=== PATIENT | male | born 1975 | race Caucasian/White ===

== ENCOUNTER 2019-10-14 14:10 | Inpatient (IN) | payer MEDICAID ==
[~2019-10-14] VITALS: Ht 185.4 cm; Wt 111.0 kg
[~2019-10-14 14:10] MED LIST: ATOR20TA PO; CLIN300C8 PO; LISI-167 PO; METF10002 PO; METF500T17 PO; OXYC-302 PO; TRAM-47 PO
--- NOTE | 2019-10-14 15:00 | NUR ---
REPORT FROM RICHARD SAMAYOA
[2019-10-14 15:29] LABS: BASOPHILS # (AUTO) 0.03 x10^3/uL (0-0.1); BASOPHILS % (AUTO) 0 % (0-1); EOSINOPHILS # (AUTO) 0.19 x10^3/uL (0-0.4); EOSINOPHILS % (AUTO) 3 % (1-7); LYMPHOCYTES # (AUTO) 1.48 x10^3/uL (1-3.4); LYMPHOCYTES % (AUTO) 21 % (22-44); MD NO; MEAN CORPUSCULAR HEMOGLOBIN 30.9 pg (27.5-34.5); MEAN CORPUSCULAR HGB CONC 33.2 g/dL (33.2-36.2); MEAN PLATELET VOLUME 11.4 fL (7.4-10.4); MONOCYTES % (AUTO) 6 % (2-9); NEUTROPHILS # (AUTO) 4.93 x10^3/uL (1.8-6.8); NEUTROPHILS % (AUTO) 70 % (42-75); PLATELET COUNT 133 x10^3/uL (130-400); RED BLOOD COUNT 5.38 x10^6/uL (4.38-5.82); RED CELL DISTRIBUTION WIDTH 13.4 % (9.4-14.8)
[2019-10-14] MEDS ORDERED: LABETALOL 5MG/ML, 20ML IVPush ONE (15:30)
[2019-10-14] MEDS ORDERED: LABETALOL 5MG/ML, 20ML ONE (15:30)
[2019-10-14 15:35] LABS: ANION GAP 6 mmol/L (5-15); CALCIUM 8.5 mg/dL (8.5-10.1); CHLORIDE 105 mmol/L (98-107); CREATININE 1.26 mg/dL (0.7-1.3)
[2019-10-14 15:47] LABS: INTERNATIONAL NORMALIZED RATIO 0.91 (0.93-1.1); PROTHROMBIN TIME 9.6 Seconds (9.6-11.5)
[2019-10-14 16:02] LABS: TROPONIN I < 0.015 ng/mL (0.000-0.045)
--- NOTE | 2019-10-14 16:19 | NUR ---
PT REPORT OF PAIN FROM HIS PANCREAS. MADE AWARE. NO ORDERS RECIEVED AT THIS TIME.
[2019-10-14 16:23] LABS: ALBUMIN 2.9 g/dL (3.4-5.0); BILIRUBIN, DIRECT 0.1 mg/dL (0.1-0.2)
[2019-10-14 16:25] LABS: BILIRUBIN,INDIRECT 0.4 mg/dL (0.0-2.0); BILIRUBIN,TOTAL 0.5 mg/dL (0.2-1.0); TOTAL PROTEIN 7.1 g/dL (6.4-8.2)
--- NOTE | 2019-10-14 16:45 | NUR ---
TASK RN, COVERING MEAL BREAK. PT SLEEPING, NAD. VSS/UPDATED IN COMPUTER. CALL LIGHT WITHIN REACH.
--- NOTE | 2019-10-14 16:58 | NUR ---
EKG COMPLETED, GIVEN TO DR PARKER
[2019-10-14] MEDS ORDERED: SODIUM CHLORIDE FLUSH 10ML SYR IVF PRN (18:00)
--- NOTE | 2019-10-14 18:47 | NUR ---
THROUGHPUT: PER HOSPITALIST, PT NEEDS TO BE ISO R/O CDIFF
[2019-10-14 19:49] VITALS: BP 157/82
[2019-10-14] MEDS ORDERED: ONDANSETRON 2MG/ML, 2ML IVPush PRN (20:00)
[2019-10-14] MEDS ORDERED: BISACODYL 10 MG SUPP PR PRN (20:00)
[2019-10-14] MEDS ORDERED: PLEASE ENTER HEIGHT AND WEIGHT MC SCH (20:00)
[2019-10-14] MEDS ORDERED: FAMO20TA7 PO (20:18)
[2019-10-14] MEDS ORDERED: METF500T17 PO (20:18)
[2019-10-14] MEDS ORDERED: ATOR-2 PO (20:18)
[2019-10-14] MEDS ORDERED: SPIR25TA5 PO (20:18)
[2019-10-14] MEDS ORDERED: CLON0.1T22 PO (20:18)
[2019-10-14] MEDS ORDERED: LISI-420 PO (20:18)
[2019-10-14] MEDS ORDERED: METO200T47 PO (20:18)
[2019-10-14] MEDS ORDERED: GABA-826 PO (20:18)
[2019-10-14] MEDS ORDERED: INSU100I13 SQ-INSULIN (20:18)
[2019-10-14] MEDS ORDERED: LISI10TA2 PO (20:18)
[2019-10-14] MEDS ORDERED: LIPA1CAP PO (20:18)
[2019-10-14 20:25] LABS: HEMOGLOBIN A1C 11.3 % (4.2-6.3)
[2019-10-14] MEDS ORDERED: INSULIN LISPRO 100 UNITS/ML, PEN SQ-INSULIN SCH (21:00)
[2019-10-14 21:31] VITALS: BP 168/95
[2019-10-14 22:51] LABS: CLOSTRIDIUM DIFFICILE ANTIGEN NEGATIVE; CLOSTRIDIUM DIFFICILE TOXIN NEGATIVE (Negative)
[2019-10-14] MEDS ORDERED: OMNIPAQUE 350 MG/ML, 100ML BOTTLE ONE (23:22)
[2019-10-15] MEDS: LISINOPRIL 20 MG TABLET PO SCH ×3 (00:30→20:36)
[2019-10-15] MEDS ORDERED: PANCRELIPASE 5000 CAPSULE.DR PO SCH (00:30)
[2019-10-15 00:54] VITALS: BP 180/105
[2019-10-15] MEDS ORDERED: IBUPROFEN 600 MG TABLET PO PRN (02:30)
[2019-10-15] MEDS ORDERED: hydrALAzine 20 MG/ML, 1ML IV PRN (02:30)
[2019-10-15 02:36] VITALS: BP 155/91
[2019-10-15] MEDS ORDERED: METOPROLOL SUCCINATE 100 MG TAB.ER.24H PO SCH (06:00)
[2019-10-15 06:19] LABS: CHOL/HDL RATIO 5.6; LDL/HDL RATIO 2.8 (0.5-3.0)
[2019-10-15] MEDS ORDERED: NICOTINE 7 MG/24 HR PATCH.TD24 ONE (08:29)
[2019-10-15] MEDS: INSULIN LISPRO 100 UNITS/ML, PEN SQ-INSULIN SCH ×4 (08:34→20:35)
[2019-10-15] MEDS: SPIRONOLACTONE 25 MG TABLET PO SCH (08:34)
[2019-10-15] MEDS: LACTOBACILLUS CHEW TABLET PO SCH ×3 (08:34→20:36)
[2019-10-15] MEDS: NICOTINE 7 MG/24 HR PATCH.TD24 TD SCH (08:34)
[2019-10-15] MEDS: PANCRELIPASE 5000 CAPSULE.DR PO SCH ×3 (08:34→20:36)
[2019-10-15] MEDS: FAMOTIDINE 20 MG TABLET PO SCH ×2 (08:35→20:36)
[2019-10-15] MEDS: LISINOPRIL 10 MG TABLET PO SCH (08:35)
[2019-10-15] MEDS: GABAPENTIN 100 MG CAPSULE PO SCH ×3 (08:35→20:36)
[2019-10-15] MEDS: ASPIRIN 81 MG TABLET CHEW PO/NG SCH (08:35)
[2019-10-15] MEDS: HEPARIN 5,000 UNITS/ML, 1ML SQ SCH ×2 (08:36→17:38)
[2019-10-15] MEDS: metFORMIN 500 MG TABLET PO SCH ×2 (08:38→20:36)
[2019-10-15 08:45] VITALS: BP 116/70
[2019-10-15] MEDS ORDERED: metFORMIN 500 MG TABLET PO SCH (09:00)
[2019-10-15] MEDS ORDERED: INSULIN LISPRO 100 UNITS/ML, PEN SQ-INSULIN SCH (11:00)
[2019-10-15] MEDS: INSULIN GLARGINE 100 UNITS/ML, PEN SQ-INSULIN SCH ×2 (12:01→20:36)
--- NOTE | 2019-10-15 13:52 | NUR ---
REC REGULAR/THIN LIQUIDS; ORANGE SHEET WITH DIET RECOMMENDATIONS AND SWALLOW STRATEGIES POSTED AT BEDSIDE. Addendum: 10/15/19 at 1352 by Jacque GONZALEZ Amended: Links added.
[2019-10-15 14:55] VITALS: BP 136/80
[2019-10-15 17:36] VITALS: BP 157/97
[2019-10-15] MEDS: CARVEDILOL 6.25 MG TABLET PO SCH (17:39)
[2019-10-15 18:56] VITALS: BP 135/73
[2019-10-15] MEDS ORDERED: ATORVASTATIN 80 MG TABLET PO SCH (21:00)
[2019-10-16 00:14] VITALS: BP 134/82
[2019-10-16] MEDS: HEPARIN 5,000 UNITS/ML, 1ML SQ SCH ×2 (01:18→08:36)
[2019-10-16] MEDS: CARVEDILOL 6.25 MG TABLET PO SCH (05:53)
[2019-10-16 06:50] VITALS: BP 126/74
[2019-10-16] MEDS: INSULIN LISPRO 100 UNITS/ML, PEN SQ-INSULIN SCH ×2 (08:24→11:26)
[2019-10-16] MEDS: NICOTINE 7 MG/24 HR PATCH.TD24 TD SCH (08:35)
[2019-10-16] MEDS: INSULIN GLARGINE 100 UNITS/ML, PEN SQ-INSULIN SCH (08:36)
[2019-10-16] MEDS: FAMOTIDINE 20 MG TABLET PO SCH (08:37)
[2019-10-16] MEDS: SPIRONOLACTONE 25 MG TABLET PO SCH (08:37)
[2019-10-16] MEDS: ASPIRIN 81 MG TABLET CHEW PO/NG SCH (08:37)
[2019-10-16] MEDS: LACTOBACILLUS CHEW TABLET PO SCH (08:37)
[2019-10-16] MEDS: LISINOPRIL 10 MG TABLET PO SCH (08:38)
[2019-10-16] MEDS: GABAPENTIN 100 MG CAPSULE PO SCH (08:38)
[2019-10-16] MEDS: metFORMIN 500 MG TABLET PO SCH (08:38)
[2019-10-16] MEDS: PANCRELIPASE 5000 CAPSULE.DR PO SCH (08:40)
[2019-10-16] MEDS ORDERED: ACID1TAB7 PO (11:13)
[2019-10-16] MEDS ORDERED: NICO-485 TD (11:13)
[2019-10-16] MEDS ORDERED: CARV6.2512 PO (11:13)
[2019-10-16] MEDS ORDERED: METF500T17 PO (11:13)
[2019-10-16] MEDS ORDERED: HYDR-3341 PO (11:13)
[2019-10-16] MEDS ORDERED: ASPI81TA45 PO (11:54)
[2019-10-16] MEDS ORDERED: FLU VACC QS2019-20 36MOS UP/PF 0.5 ML IM-VACC ONE (12:00)
== END 2019-10-16 12:33 | disposition home or self-care (01) | DRG 65 ==
LOC: ED 15:12 → EDIP 17:36 → 4WST 19:39 → DCLOUNGE 10-16 12:02
PROVIDERS: ADMIT Internal Medicine Infectious Disease; ATTEND Internal Medicine
DX: I63.9 Cerebral infarction, unspecified (principal); I69.351 Hemiplegia and hemiparesis following cerebral infarction affecting right dominant side; A08.4 Viral intestinal infection, unspecified; E11.65 Type 2 diabetes mellitus with hyperglycemia; E66.9 Obesity, unspecified; E78.5 Hyperlipidemia, unspecified; F17.210 Nicotine dependence, cigarettes, uncomplicated; G47.00 Insomnia, unspecified; G47.30 Sleep apnea, unspecified; G89.29 Other chronic pain; I10 Essential (primary) hypertension; I16.0 Hypertensive urgency; J32.0 Chronic maxillary sinusitis; Z81.1 Family history of alcohol abuse and dependence; Z81.3 Family history of other psychoactive substance abuse and dependence; Z83.3 Family history of diabetes mellitus; Z88.1 Allergy status to other antibiotic agents; Z88.5 Allergy status to narcotic agent; Z88.8 Allergy status to other drugs, medicaments and biological substances; Z68.32 Body mass index [BMI] 32.0-32.9, adult
CPT/HCPCS: 36415; 70450; 70496; 70498; 70551; 71045; 74230; 80048; 80061; 80076; 82040; 82962; 83036; 83690; 84484; 85025; 85610; 85730; 87324; 90686; 93005; 93306; 99285; G0378; J1644; Q9967; J1815

== ENCOUNTER 2019-11-12 20:27 | Inpatient (IN) | payer MEDICAID ==
[~2019-11-12] VITALS: Ht 185.4 cm; Wt 100.7 kg
[~2019-11-12 20:27] MED LIST changes: +ACID1TAB7 PO; +ASPI81TA45 PO; +ATOR-2 PO; +CARV6.2512 PO; +CLON0.1T22 PO; +FAMO20TA7 PO; +GABA-826 PO; +HYDR-3341 PO; +INSU100I13 SQ-INSULIN; +LIPA1CAP PO; +LISI-420 PO; +LISI10TA2 PO; +METO200T47 PO; +NICO-485 TD; +SPIR25TA5 PO
[2019-11-12] MEDS ORDERED: METF500T PO (21:04)
[2019-11-12] MEDS ORDERED: MORPHINE PO (21:06)
--- NOTE | 2019-11-12 21:06 | NUR ---
THIS IS A 44 YO MALE COMING IN FOR RIGHT SIDED WEAKNESS STARTING LAST NIGHT, ALONG WITH "I CAN'T SEE OUT OF MY RIGHT EYE BUT THAT WAS FROM A STROKE I HAD 5 WEEKS AGO. I ALSO HAVE SOME SHORTNESS OF BREATH, AND I'M DEHYDRATED". PATIENT STATES HE WAS TREATED AT [facility] FOR STROKE 5 WEEKS AGO. EQUAL STRENGTH BILATERALLY IN UE AND LE, DIMINISHED SENSATION ON RIGHT SIDE. RESIDUAL MILD FACIAL DROOP ON RIGHT SIDE, ABLE TO PUFF CHEEKS OUT EQUALLY, PERRLA, A&OX4. PT HAS HX OF HTN, CURRENTLY 214/137, TACHYCARDIC AT 113, OTHER VSS, ALL MONITORING IN PLACE, NAD NOTED, CALL LIGHT IN REACH. DENIES NEEDS AT THIS TIME.
[2019-11-12] MEDS ORDERED: LABETALOL 5MG/ML, 20ML ONE (21:40)
[2019-11-12] MEDS ORDERED: hydrALAzine 20 MG/ML, 1ML ONE (21:40)
[2019-11-12] MEDS ORDERED: MORPHINE SULFATE 4 MG/ML, 1ML ONE ×2 (21:40→22:51)
[2019-11-12 21:48] LABS: BASOPHILS # (AUTO) 0.03 x10^3/uL (0-0.1); BASOPHILS % (AUTO) 0 % (0-1); EOSINOPHILS # (AUTO) 0.08 x10^3/uL (0-0.4); EOSINOPHILS % (AUTO) 1 % (1-7); LYMPHOCYTES # (AUTO) 1.74 x10^3/uL (1-3.4); LYMPHOCYTES % (AUTO) 16 % (22-44); MD NO; MEAN CORPUSCULAR HEMOGLOBIN 30.5 pg (27.5-34.5); MEAN CORPUSCULAR HGB CONC 33.5 g/dL (33.2-36.2); MEAN CORPUSCULAR VOLUME 91.1 fL (81-97); MEAN PLATELET VOLUME 11.4 fL (7.4-10.4); MONOCYTES # (AUTO) 0.71 x10^3/uL (0.2-0.8); MONOCYTES % (AUTO) 7 % (2-9); NEUTROPHILS % (AUTO) 76 % (42-75); PLATELET COUNT 148 x10^3/uL (130-400); RED BLOOD COUNT 5.11 x10^6/uL (4.38-5.82)
[2019-11-12] MEDS: MORPHINE SULFATE 4 MG/ML, 1ML IVPush PRN ×2 (21:52→22:58)
[2019-11-12 21:57] LABS: ALBUMIN 3.1 g/dL (3.4-5.0); ANION GAP 8 mmol/L (5-15); CHLORIDE 102 mmol/L (98-107); CREATININE 1.66 mg/dL (0.7-1.3)
[2019-11-12] MEDS ORDERED: LABETALOL 5MG/ML, 20ML IVPush ONE (22:00)
[2019-11-12] MEDS ORDERED: SODIUM CHLORIDE FLUSH 10ML SYR IVF ONE (22:00)
[2019-11-12] MEDS ORDERED: hydrALAzine 20 MG/ML, 1ML IV ONE (22:00)
--- NOTE | 2019-11-12 22:00 | NUR ---
patient back from CT
[2019-11-12] MEDS ORDERED: ENALAPRILAT 1.25 MG/ML, 1ML ONE (22:51)
[2019-11-12] MEDS ORDERED: ENALAPRILAT 1.25 MG/ML, 2ML IV ONE (23:00)
--- NOTE | 2019-11-12 23:01 | NUR ---
PATIENT MNEDICATED PER EMAR, TOLERATED WELL, BP TRENDING DOWN. VSS, NAD, C/O BEING COLD AND RICHARD. NEEDS ADDRESSED. WAITING FOR ADMITTING MD TO ROOM.
[2019-11-13] MEDS ORDERED: DOCUSATE 100 MG CAPSULE PO PRN (00:30)
[2019-11-13] MEDS ORDERED: ONDANSETRON 2MG/ML, 2ML IVPush PRN (00:30)
[2019-11-13] MEDS ORDERED: LIDODERM 5% PATCH TD PRN (00:30)
[2019-11-13] MEDS ORDERED: hydrALAzine 20 MG/ML, 1ML IVPush PRN (00:30)
[2019-11-13] MEDS ORDERED: LABETALOL 5MG/ML, 20ML IVPush PRN (00:30)
[2019-11-13] MEDS ORDERED: MORPHINE 100 MG MC SCH (01:00)
[2019-11-13] MEDS: HEPARIN 5,000 UNITS/ML, 1ML SQ SCH ×3 (01:48→17:03)
[2019-11-13] MEDS: NICOTINE 7 MG/24 HR PATCH.TD24 TD SCH (01:48)
[2019-11-13] MEDS: LACTATED RINGERS 1,000 ML IV SCH ×3 (01:48→17:03)
[2019-11-13 02:58] VITALS: BP 129/81
[2019-11-13 06:47] VITALS: BP 138/77
[2019-11-13] MEDS ORDERED: CALCIUM GLUCONATE 4.6 MEQ in SODIUM CHLORIDE 0.9% 50 ML IV ONE (07:30)
[2019-11-13] MEDS: ASPIRIN 81 MG TABLET EC PO SCH (08:40)
[2019-11-13] MEDS: GABAPENTIN 100 MG CAPSULE PO SCH ×3 (08:41→21:47)
[2019-11-13] MEDS ORDERED: MORPHINE 100 MG PO SCH (09:00)
[2019-11-13] MEDS: INSULIN GLARGINE 100 UNITS/ML, PEN SQ-INSULIN SCH ×2 (09:00→21:48)
[2019-11-13] MEDS ORDERED: HYDROmorphone 1 MG/ML, 1ML INJ IM PRN (12:00)
[2019-11-13] MEDS: HYDROmorphone 1 MG/ML, 1ML INJ IV PRN ×3 (12:26→21:47)
[2019-11-13 12:28] VITALS: BP 169/99
[2019-11-13 21:27] VITALS: BP 169/93
[2019-11-13] MEDS: LISINOPRIL 20 MG TABLET PO SCH (21:47)
[2019-11-14] MEDS: HEPARIN 5,000 UNITS/ML, 1ML SQ SCH ×3 (00:40→17:55)
[2019-11-14] MEDS: NICOTINE 7 MG/24 HR PATCH.TD24 TD SCH (00:41)
[2019-11-14] MEDS: LACTATED RINGERS 1,000 ML IV SCH ×2 (00:41→08:59)
[2019-11-14] MEDS: HYDROmorphone 1 MG/ML, 1ML INJ IV PRN ×5 (02:16→20:09)
[2019-11-14 02:31] VITALS: BP 144/88
[2019-11-14 05:43] LABS: BASOPHILS # (AUTO) 0.04 x10^3/uL (0-0.1); BASOPHILS % (AUTO) 0 % (0-1); EOSINOPHILS # (AUTO) 0.17 x10^3/uL (0-0.4); EOSINOPHILS % (AUTO) 2 % (1-7); LYMPHOCYTES # (AUTO) 2.09 x10^3/uL (1-3.4); LYMPHOCYTES % (AUTO) 19 % (22-44); MD NO; MEAN CORPUSCULAR HEMOGLOBIN 30.6 pg (27.5-34.5); MEAN CORPUSCULAR HGB CONC 33.4 g/dL (33.2-36.2); MEAN CORPUSCULAR VOLUME 91.6 fL (81-97); MONOCYTES # (AUTO) 0.94 x10^3/uL (0.2-0.8); MONOCYTES % (AUTO) 9 % (2-9); NEUTROPHILS # (AUTO) 7.69 x10^3/uL (1.8-6.8); NEUTROPHILS % (AUTO) 70 % (42-75); PLATELET COUNT 146 x10^3/uL (130-400); RED BLOOD COUNT 4.52 x10^6/uL (4.38-5.82); RED CELL DISTRIBUTION WIDTH 14.3 % (9.4-14.8)
[2019-11-14 05:56] LABS: ANION GAP 7 mmol/L (5-15); CALCIUM 7.7 mg/dL (8.5-10.1); CHLORIDE 102 mmol/L (98-107)
[2019-11-14 05:59] LABS: CREATININE 1.19 mg/dL (0.7-1.3)
[2019-11-14 06:49] VITALS: BP 114/70
[2019-11-14] MEDS ORDERED: CALCIUM GLUCONATE 4.6 MEQ in SODIUM CHLORIDE 0.9% 50 ML IV ONE (08:00)
[2019-11-14] MEDS: GABAPENTIN 100 MG CAPSULE PO SCH ×3 (09:00→20:09)
[2019-11-14] MEDS: ASPIRIN 81 MG TABLET EC PO SCH (09:00)
[2019-11-14] MEDS: INSULIN GLARGINE 100 UNITS/ML, PEN SQ-INSULIN SCH ×2 (09:38→20:29)
[2019-11-14 12:32] VITALS: BP 106/67
[2019-11-14 17:35] LABS: CLOSTRIDIUM DIFFICILE ANTIGEN NEGATIVE; CLOSTRIDIUM DIFFICILE TOXIN NEGATIVE (Negative)
[2019-11-14] MEDS: LISINOPRIL 20 MG TABLET PO SCH (20:09)
[2019-11-14 20:23] VITALS: BP 161/96
[2019-11-14] MEDS: TRAZODONE 50MG TABLET PO PRN (22:58)
[2019-11-15] MEDS: HEPARIN 5,000 UNITS/ML, 1ML SQ SCH ×2 (00:06→09:13)
[2019-11-15] MEDS: HYDROmorphone 1 MG/ML, 1ML INJ IV PRN ×5 (00:06→16:52)
[2019-11-15] MEDS: NICOTINE 7 MG/24 HR PATCH.TD24 TD SCH (00:06)
[2019-11-15] MEDS: TRAZODONE 50MG TABLET PO PRN (00:15)
[2019-11-15] MEDS: LACTATED RINGERS 1,000 ML IV SCH ×2 (03:10→10:00)
[2019-11-15 03:23] VITALS: BP 156/96
[2019-11-15 06:07] LABS: CHLORIDE 103 mmol/L (98-107)
[2019-11-15 06:13] LABS: ALBUMIN 2.7 g/dL (3.4-5.0); ANION GAP 6 mmol/L (5-15); CALCIUM 8.1 mg/dL (8.5-10.1); CREATININE 1.19 mg/dL (0.7-1.3)
[2019-11-15 06:15] LABS: BASOPHILS # (AUTO) 0.03 x10^3/uL (0-0.1); BASOPHILS % (AUTO) 0 % (0-1); EOSINOPHILS # (AUTO) 0.13 x10^3/uL (0-0.4); EOSINOPHILS % (AUTO) 2 % (1-7); LYMPHOCYTES # (AUTO) 2.52 x10^3/uL (1-3.4); LYMPHOCYTES % (AUTO) 29 % (22-44); MD NO; MEAN CORPUSCULAR HEMOGLOBIN 30.3 pg (27.5-34.5); MEAN CORPUSCULAR HGB CONC 32.7 g/dL (33.2-36.2); MEAN CORPUSCULAR VOLUME 92.7 fL (81-97); MEAN PLATELET VOLUME 11.5 fL (7.4-10.4); MONOCYTES # (AUTO) 0.79 x10^3/uL (0.2-0.8); MONOCYTES % (AUTO) 9 % (2-9); NEUTROPHILS # (AUTO) 5.14 x10^3/uL (1.8-6.8); NEUTROPHILS % (AUTO) 60 % (42-75); PLATELET COUNT 150 x10^3/uL (130-400); RED BLOOD COUNT 4.65 x10^6/uL (4.38-5.82); RED CELL DISTRIBUTION WIDTH 14.4 % (9.4-14.8)
[2019-11-15 06:32] VITALS: BP 163/88
[2019-11-15] MEDS ORDERED: CALCIUM GLUCONATE 4.6 MEQ in SODIUM CHLORIDE 0.9% 50 ML IV ONE (07:30)
[2019-11-15] MEDS: ASPIRIN 81 MG TABLET EC PO SCH (09:14)
[2019-11-15] MEDS: INSULIN GLARGINE 100 UNITS/ML, PEN SQ-INSULIN SCH (09:14)
[2019-11-15] MEDS: GABAPENTIN 100 MG CAPSULE PO SCH ×2 (09:14→16:18)
[2019-11-15 13:02] VITALS: BP 164/85
[2019-11-15] MEDS ORDERED: CARV3.1212 PO (13:27)
[2019-11-15] MEDS ORDERED: CARVEDILOL 3.125 MG TABLET PO ONE (14:00)
== END 2019-11-15 16:58 | DRG 124 ==
LOC: ED 22:18 → EDIP 22:57 → 4EST 11-13 00:05
PROVIDERS: ADMIT Internal Medicine; ATTEND Family Medicine
DX: H43.13 Vitreous hemorrhage, bilateral (principal); N17.0 Acute kidney failure with tubular necrosis; I69.351 Hemiplegia and hemiparesis following cerebral infarction affecting right dominant side; I16.0 Hypertensive urgency; I10 Essential (primary) hypertension; G89.29 Other chronic pain; E78.5 Hyperlipidemia, unspecified; F17.200 Nicotine dependence, unspecified, uncomplicated; E11.65 Type 2 diabetes mellitus with hyperglycemia; Z83.3 Family history of diabetes mellitus; Z81.3 Family history of other psychoactive substance abuse and dependence; Z79.4 Long term (current) use of insulin; Z81.1 Family history of alcohol abuse and dependence; Z79.899 Other long term (current) drug therapy
CPT/HCPCS: 36415; 70450; 70551; 76770; 80048; 80069; 82040; 82962; 83735; 85025; 87324; 93005; 96374; 96375; 96376; G0378; J0610; J1170; J1644; J0360; J1815; J2270; J7120

== ENCOUNTER 2019-12-25 18:06 | Emergency (ER) | payer MEDICAID ==
[~2019-12-25] VITALS: Ht 185.4 cm; Wt 124.6 kg
[~2019-12-25 18:06] MED LIST changes: +CARV3.1212 PO; +METF500T PO; +MORPHINE PO
[2019-12-25] MEDS ORDERED: LABETALOL 5MG/ML, 20ML IVPush STA (18:55)
[2019-12-25] MEDS ORDERED: SODIUM CHLORIDE FLUSH 10ML SYR IVF ONE (19:00)
[2019-12-25 19:17] LABS: BASOPHILS # (AUTO) 0.05 x10^3/uL (0-0.1); BASOPHILS % (AUTO) 1 % (0-1); EOSINOPHILS # (AUTO) 0.41 x10^3/uL (0-0.4); EOSINOPHILS % (AUTO) 5 % (1-7); LYMPHOCYTES # (AUTO) 2.35 x10^3/uL (1-3.4); LYMPHOCYTES % (AUTO) 27 % (22-44); MD NO; MEAN CORPUSCULAR HEMOGLOBIN 30.8 pg (27.5-34.5); MEAN CORPUSCULAR HGB CONC 33.5 g/dL (33.2-36.2); MEAN CORPUSCULAR VOLUME 91.9 fL (81-97); MEAN PLATELET VOLUME 10.8 fL (7.4-10.4); MONOCYTES % (AUTO) 8 % (2-9); NEUTROPHILS # (AUTO) 5.37 x10^3/uL (1.8-6.8); NEUTROPHILS % (AUTO) 61 % (42-75); PLATELET COUNT 172 x10^3/uL (130-400); RED BLOOD COUNT 4.85 x10^6/uL (4.38-5.82); RED CELL DISTRIBUTION WIDTH 14.1 % (9.4-14.8)
[2019-12-25 19:24] LABS: ALANINE AMINOTRANSFERASE 25 U/L (12-78); ALBUMIN 3.4 g/dL (3.4-5.0); ANION GAP 7 mmol/L (5-15); CALCIUM 8.8 mg/dL (8.5-10.1); CHLORIDE 105 mmol/L (98-107); CREATININE 1.59 mg/dL (0.7-1.3)
[2019-12-25 19:29] LABS: ALKALINE PHOSPHATASE 86 U/L (45-117); BILIRUBIN,TOTAL 0.3 mg/dL (0.2-1.0); TOTAL PROTEIN 7.7 g/dL (6.4-8.2); TROPONIN I < 0.015 ng/mL (0.000-0.045)
[2019-12-25] MEDS ORDERED: LABETALOL 5MG/ML, 20ML ONE (21:11)
[2019-12-25] MEDS ORDERED: ONDANSETRON 2MG/ML, 2ML ONE (21:37)
[2019-12-25] MEDS ORDERED: KETOROLAC 30 MG/1 ML ONE (21:37)
[2019-12-25] MEDS ORDERED: ONDANSETRON 2MG/ML, 2ML IVPush ONE (22:00)
[2019-12-25] MEDS ORDERED: KETOROLAC 30 MG/1 ML IVPush ONE (22:00)
[2019-12-25 22:45] VITALS: BP 146/85
== END 2019-12-25 22:48 | disposition home or self-care (01) ==
LOC: ED 19:03
DX: R10.13 Epigastric pain (principal); I10 Essential (primary) hypertension; R51 Headache; E11.9 Type 2 diabetes mellitus without complications; Z86.73 Personal history of transient ischemic attack (TIA), and cerebral infarction without residual deficits; E78.5 Hyperlipidemia, unspecified; R00.0 Tachycardia, unspecified
CPT/HCPCS: 36415; 70450; 71045; 80053; 83690; 83880; 84484; 85025; 93005; 96374; 96375; 99285; J1885; J2405

== ENCOUNTER 2020-01-20 18:17 | Inpatient (IN) | payer MEDICAID ==
[~2020-01-20] VITALS: Ht 185.4 cm; Wt 123.9 kg
[~2020-01-20 18:17] MED LIST changes: +AMLO-150 PO; +AMLO5TAB10 PO; +ATOR40TA78 PO; +CARV25TA12 PO; +HYDR-3342 PO; +HYDR-3343 PO; +HYDR-826 PO; +LISI-170 PO; +ONDA4TAB7 PO; +PANT40TA5 PO; +TRAZ-175 PO
--- NOTE | 2020-01-20 18:42 | NUR ---
BIB [facility] ABD PAIN HX CVA W VISSUAL LOSS PANCREATITIS HTN DIABETIC TYPE 2 AO4 ON ARRIVAL
--- NOTE | 2020-01-20 19:02 | NUR ---
REPORT FROM DANITA COOK
[2020-01-20 19:13] LABS: BASOPHILS # (AUTO) 0.04 x10^3/uL (0-0.1); BASOPHILS % (AUTO) 0 % (0-1); EOSINOPHILS # (AUTO) 0.33 x10^3/uL (0-0.4); EOSINOPHILS % (AUTO) 3 % (1-7); LYMPHOCYTES # (AUTO) 2.85 x10^3/uL (1-3.4); LYMPHOCYTES % (AUTO) 28 % (22-44); MD NO; MEAN CORPUSCULAR HGB CONC 33.7 g/dL (33.2-36.2); MEAN PLATELET VOLUME 10.6 fL (7.4-10.4); MONOCYTES # (AUTO) 0.75 x10^3/uL (0.2-0.8); MONOCYTES % (AUTO) 7 % (2-9); NEUTROPHILS # (AUTO) 6.34 x10^3/uL (1.8-6.8); NEUTROPHILS % (AUTO) 62 % (42-75); PLATELET COUNT 226 x10^3/uL (130-400); RED CELL DISTRIBUTION WIDTH 13.4 % (9.4-14.8)
[2020-01-20 19:21] LABS: ALANINE AMINOTRANSFERASE 38 U/L (12-78); ALBUMIN 3.1 g/dL (3.4-5.0); ANION GAP 6 mmol/L (5-15); CALCIUM 8.2 mg/dL (8.5-10.1); CHLORIDE 104 mmol/L (98-107); CREATININE 1.54 mg/dL (0.7-1.3)
[2020-01-20 19:24] LABS: ALKALINE PHOSPHATASE 94 U/L (45-117); BILIRUBIN,TOTAL 0.2 mg/dL (0.2-1.0); TOTAL PROTEIN 7.4 g/dL (6.4-8.2)
[2020-01-20] MEDS ORDERED: SODIUM CHLORIDE 0.9% 1,000ML IVBOLUS ONE (19:30)
[2020-01-20] MEDS ORDERED: SODIUM CHLORIDE FLUSH 10ML SYR IVF ONE (19:30)
[2020-01-20] MEDS ORDERED: ONDANSETRON 2MG/ML, 2ML ONE (19:38)
[2020-01-20] MEDS ORDERED: ONDANSETRON 2MG/ML, 2ML IVPush ONE (20:00)
[2020-01-20] MEDS ORDERED: EMPA25TA PO (20:03)
[2020-01-20] MEDS ORDERED: PALI3TAB11 PO (20:03)
[2020-01-20] MEDS ORDERED: CLON0.1T22 PO (20:03)
[2020-01-20] MEDS ORDERED: LISINOPRIL PO (20:03)
[2020-01-20] MEDS ORDERED: HYDR-3342 PO (20:03)
[2020-01-20] MEDS ORDERED: SODIUM CHLORIDE 0.9% 1,000 ML IV ONE (20:12)
[2020-01-20] MEDS ORDERED: ACETAMINOPHEN 325 MG TABLET PO PRN (20:30)
[2020-01-20] MEDS ORDERED: MORPHINE SULFATE 4 MG/ML, 1ML ONE (20:30)
[2020-01-20] MEDS ORDERED: SODIUM CHLORIDE FLUSH 10ML SYR IVF PRN (20:30)
[2020-01-20] MEDS ORDERED: hydrALAzine 20 MG/ML, 1ML IVPush PRN (20:30)
[2020-01-20] MEDS: morphine SULFATE 10 MG/ML, 1ML IVPush PRN ×2 (20:31→23:40)
[2020-01-20] MEDS: LACTATED RINGERS 1,000 ML IV SCH (20:39)
--- NOTE | 2020-01-20 20:52 | NUR ---
REPORT TO DANITA SMITH
--- NOTE | 2020-01-20 20:53 | NUR ---
PT VERBALIZED PAIN RELIEF AFTER MORPHINE
[2020-01-20] MEDS ORDERED: INSULIN GLARGINE 100 UNITS/ML, PEN SQ-INSULIN SCH (21:00)
[2020-01-20 21:45] VITALS: BP 211/127
[2020-01-20] MEDS: HEPARIN 5,000 UNITS/ML, 1ML SQ SCH (21:54)
[2020-01-20] MEDS: TRAZODONE 100MG TABLET PO SCH (21:55)
[2020-01-20] MEDS: ATORVASTATIN 40 MG TABLET PO SCH (21:55)
[2020-01-20] MEDS: CARVEDILOL 25 MG TABLET PO SCH (21:55)
[2020-01-20] MEDS: GABAPENTIN 100 MG CAPSULE PO SCH (21:55)
[2020-01-20] MEDS: INSULIN LISPRO 100 UNITS/ML, PEN SQ-INSULIN SCH (22:21)
[2020-01-21] MEDS: morphine SULFATE 10 MG/ML, 1ML IVPush PRN ×7 (02:31→21:19)
[2020-01-21] MEDS: LACTATED RINGERS 1,000 ML IV SCH ×3 (03:49→18:18)
[2020-01-21 05:31] LABS: BASOPHILS # (AUTO) 0.05 x10^3/uL (0-0.1); BASOPHILS % (AUTO) 1 % (0-1); EOSINOPHILS # (AUTO) 0.28 x10^3/uL (0-0.4); EOSINOPHILS % (AUTO) 3 % (1-7); LYMPHOCYTES % (AUTO) 39 % (22-44); MD NO; MEAN CORPUSCULAR HEMOGLOBIN 30.8 pg (27.5-34.5); MEAN CORPUSCULAR HGB CONC 33.2 g/dL (33.2-36.2); MEAN CORPUSCULAR VOLUME 92.9 fL (81-97); MEAN PLATELET VOLUME 10.9 fL (7.4-10.4); MONOCYTES # (AUTO) 0.62 x10^3/uL (0.2-0.8); MONOCYTES % (AUTO) 7 % (2-9); NEUTROPHILS % (AUTO) 50 % (42-75); PLATELET COUNT 212 x10^3/uL (130-400); RED BLOOD COUNT 4.49 x10^6/uL (4.38-5.82); RED CELL DISTRIBUTION WIDTH 13.4 % (9.4-14.8)
[2020-01-21] MEDS: HEPARIN 5,000 UNITS/ML, 1ML SQ SCH ×3 (05:39→20:34)
[2020-01-21] MEDS: ONDANSETRON 2MG/ML, 2ML IVPush PRN ×2 (05:41→12:02)
[2020-01-21 05:43] LABS: CHLORIDE 112 mmol/L (98-107)
[2020-01-21 05:47] LABS: ANION GAP 5 mmol/L (5-15); CREATININE 1.37 mg/dL (0.7-1.3)
[2020-01-21] MEDS: INSULIN LISPRO 100 UNITS/ML, PEN SQ-INSULIN SCH ×4 (07:00→20:31)
[2020-01-21] MEDS: PALIPERIDONE 3 MG TAB.ER.24 PO SCH (07:40)
[2020-01-21] MEDS: GABAPENTIN 100 MG CAPSULE PO SCH ×3 (07:40→20:34)
[2020-01-21] MEDS: CARVEDILOL 25 MG TABLET PO SCH ×2 (07:40→20:34)
[2020-01-21] MEDS: ASPIRIN 81 MG TABLET EC PO SCH (07:41)
[2020-01-21] MEDS: AMLODIPINE 5 MG TABLET PO SCH (07:41)
[2020-01-21 07:53] VITALS: BP 169/106
[2020-01-21 08:24] LABS: CHOLESTEROL, TOTAL 142 mg/dL (140-239); VLDL CHOLESTEROL 19 mg/dL (0-25)
[2020-01-21 08:26] LABS: CHOL/HDL RATIO 3.2; HDL CHOL % 31 % (26-37); HDL CHOLESTEROL (DIRECT) 44 mg/dL (40-60); LDL CHOLESTEROL,CALCULATED 79 mg/dL (54-169); LDL/HDL RATIO 1.8 (0.5-3.0)
[2020-01-21 08:29] LABS: TRIGLYCERIDES 97 mg/dL (50-200)
[2020-01-21 12:46] VITALS: BP 149/95
[2020-01-21 18:11] VITALS: BP 163/91
[2020-01-21] MEDS: ATORVASTATIN 40 MG TABLET PO SCH (20:34)
[2020-01-21] MEDS: TRAZODONE 100MG TABLET PO SCH (20:34)
[2020-01-22] MEDS ORDERED: DEXTROSE 4 GM TAB.CHEW PO PRN
[2020-01-22] MEDS ORDERED: DEXTROSE 50%, 50ML SYRINGE IVPush PRN
[2020-01-22] MEDS ORDERED: GLUCAGON 1 MG IM PRN
[2020-01-22] MEDS: morphine SULFATE 10 MG/ML, 1ML IVPush PRN ×7 (00:28→21:26)
[2020-01-22] MEDS: LACTATED RINGERS 1,000 ML IV SCH ×2 (00:29→20:08)
[2020-01-22 00:40] VITALS: BP 156/91
[2020-01-22 03:36] LABS: ALBUMIN 2.8 g/dL (3.4-5.0); ANION GAP 4 mmol/L (5-15); CALCIUM 8.5 mg/dL (8.5-10.1); CHLORIDE 112 mmol/L (98-107)
[2020-01-22 03:40] LABS: ALANINE AMINOTRANSFERASE 31 U/L (12-78); ALKALINE PHOSPHATASE 88 U/L (45-117); BILIRUBIN,TOTAL 0.4 mg/dL (0.2-1.0); CREATININE 1.24 mg/dL (0.7-1.3); TOTAL PROTEIN 6.4 g/dL (6.4-8.2)
[2020-01-22] MEDS: HEPARIN 5,000 UNITS/ML, 1ML SQ SCH ×3 (04:54→20:07)
[2020-01-22] MEDS: INSULIN LISPRO 100 UNITS/ML, PEN SQ-INSULIN SCH ×4 (07:00→20:08)
[2020-01-22 07:33] VITALS: BP 145/95
[2020-01-22] MEDS ORDERED: D5%-0.45% NACL+KCL 10MEQ 1,000 ML IV SCH (08:00)
[2020-01-22] MEDS: SODIUM CHLORIDE FLUSH 10ML SYR IVF SCH ×2 (08:40→20:09)
[2020-01-22] MEDS: ASPIRIN 81 MG TABLET EC PO SCH (08:42)
[2020-01-22] MEDS: PALIPERIDONE 3 MG TAB.ER.24 PO SCH (08:43)
[2020-01-22] MEDS: LISINOPRIL 10 MG TABLET PO SCH (08:43)
[2020-01-22] MEDS: AMLODIPINE 5 MG TABLET PO SCH (08:43)
[2020-01-22] MEDS: GABAPENTIN 100 MG CAPSULE PO SCH ×3 (08:43→20:08)
[2020-01-22] MEDS: CARVEDILOL 25 MG TABLET PO SCH ×2 (08:48→20:08)
[2020-01-22] MEDS ORDERED: D5%-LACTATED RINGERS 1,000 ML IV SCH (11:30)
[2020-01-22 12:05] VITALS: BP 122/80
[2020-01-22] MEDS: ONDANSETRON 2MG/ML, 2ML IVPush PRN (14:59)
[2020-01-22] MEDS: ATORVASTATIN 40 MG TABLET PO SCH (20:08)
[2020-01-22] MEDS: TRAZODONE 100MG TABLET PO SCH (20:09)
[2020-01-22 20:44] VITALS: BP 138/83
[2020-01-23] MEDS: morphine SULFATE 10 MG/ML, 1ML IVPush PRN ×5 (00:29→22:02)
[2020-01-23 01:41] VITALS: BP 131/81
[2020-01-23] MEDS: HEPARIN 5,000 UNITS/ML, 1ML SQ SCH ×3 (03:48→19:57)
[2020-01-23 06:33] VITALS: BP 123/71
[2020-01-23] MEDS: AMLODIPINE 5 MG TABLET PO SCH (07:29)
[2020-01-23] MEDS: PALIPERIDONE 3 MG TAB.ER.24 PO SCH (07:29)
[2020-01-23] MEDS: LISINOPRIL 10 MG TABLET PO SCH (07:29)
[2020-01-23] MEDS: CARVEDILOL 25 MG TABLET PO SCH ×2 (07:29→19:56)
[2020-01-23] MEDS: ASPIRIN 81 MG TABLET EC PO SCH (07:29)
[2020-01-23] MEDS: GABAPENTIN 100 MG CAPSULE PO SCH ×3 (07:29→19:56)
[2020-01-23] MEDS: INSULIN LISPRO 100 UNITS/ML, PEN SQ-INSULIN SCH ×4 (07:37→19:57)
[2020-01-23] MEDS: SODIUM CHLORIDE FLUSH 10ML SYR IVF SCH ×2 (08:41→19:57)
[2020-01-23] MEDS: LACTATED RINGERS 1,000 ML IV SCH ×2 (09:34→22:41)
[2020-01-23] MEDS: NICOTINE 7 MG/24 HR PATCH.TD24 TD SCH (11:00)
[2020-01-23] MEDS: OXYcodone IR 5MG TABLET PO PRN ×2 (11:08→19:56)
[2020-01-23 14:56] VITALS: BP 122/76
[2020-01-23 19:28] VITALS: BP 139/83
[2020-01-23] MEDS: ATORVASTATIN 40 MG TABLET PO SCH (19:56)
[2020-01-23] MEDS: TRAZODONE 100MG TABLET PO SCH (19:56)
[2020-01-23] MEDS ORDERED: INSULIN GLARGINE 100 UNITS/ML, PEN SQ-INSULIN SCH (21:00)
[2020-01-24 01:03] VITALS: BP 160/93
[2020-01-24] MEDS: morphine SULFATE 10 MG/ML, 1ML IVPush PRN (02:07)
[2020-01-24] MEDS: OXYcodone IR 5MG TABLET PO PRN ×3 (04:45→21:00)
[2020-01-24] MEDS: HEPARIN 5,000 UNITS/ML, 1ML SQ SCH ×3 (04:45→20:56)
[2020-01-24] MEDS: INSULIN LISPRO 100 UNITS/ML, PEN SQ-INSULIN SCH ×4 (07:00→20:59)
[2020-01-24] MEDS: CARVEDILOL 25 MG TABLET PO SCH ×2 (07:11→20:57)
[2020-01-24] MEDS: AMLODIPINE 5 MG TABLET PO SCH (07:11)
[2020-01-24] MEDS: ASPIRIN 81 MG TABLET EC PO SCH (07:11)
[2020-01-24] MEDS: PALIPERIDONE 3 MG TAB.ER.24 PO SCH (07:11)
[2020-01-24] MEDS: LISINOPRIL 10 MG TABLET PO SCH ×2 (07:12→08:15)
[2020-01-24] MEDS: GABAPENTIN 100 MG CAPSULE PO SCH ×3 (07:13→20:57)
[2020-01-24] MEDS: SODIUM CHLORIDE FLUSH 10ML SYR IVF SCH ×2 (07:13→20:57)
[2020-01-24 08:17] VITALS: BP 160/76
[2020-01-24 08:51] VITALS: BP 144/71
[2020-01-24] MEDS ORDERED: IBUPROFEN 200 MG TABLET PO ONE (09:00)
[2020-01-24 09:47] LABS: ALANINE AMINOTRANSFERASE 21 U/L (12-78); ALBUMIN 2.6 g/dL (3.4-5.0); ANION GAP 7 mmol/L (5-15); CALCIUM 8.5 mg/dL (8.5-10.1); CHLORIDE 107 mmol/L (98-107)
[2020-01-24 09:50] LABS: ALKALINE PHOSPHATASE 87 U/L (45-117); BILIRUBIN,TOTAL 0.4 mg/dL (0.2-1.0); CREATININE 1.24 mg/dL (0.7-1.3); TOTAL PROTEIN 6.5 g/dL (6.4-8.2)
[2020-01-24 10:13] LABS: BASOPHILS # (AUTO) 0.07 x10^3/uL (0-0.1); BASOPHILS % (AUTO) 1 % (0-1); EOSINOPHILS % (AUTO) 1 % (1-7); LYMPHOCYTES # (AUTO) 1.86 x10^3/uL (1-3.4); LYMPHOCYTES % (AUTO) 14 % (22-44); MD SCAN; MEAN CORPUSCULAR HEMOGLOBIN 31.1 pg (27.5-34.5); MEAN CORPUSCULAR HGB CONC 33.7 g/dL (33.2-36.2); MEAN CORPUSCULAR VOLUME 92.2 fL (81-97); MEAN PLATELET VOLUME 10.4 fL (7.4-10.4); MONOCYTES # (AUTO) 1.15 x10^3/uL (0.2-0.8); MONOCYTES % (AUTO) 9 % (2-9); NEUTROPHILS # (AUTO) 9.69 x10^3/uL (1.8-6.8); NEUTROPHILS % (AUTO) 75 % (42-75); PLATELET COUNT 169 x10^3/uL (130-400); RED BLOOD COUNT 4.51 x10^6/uL (4.38-5.82); RED CELL DISTRIBUTION WIDTH 13.1 % (9.4-14.8)
[2020-01-24] MEDS: NICOTINE 7 MG/24 HR PATCH.TD24 TD SCH (11:24)
[2020-01-24] MEDS ORDERED: OXYcodone 5 MG/5 ML ORAL.SOL UDC ONE (12:18)
[2020-01-24] MEDS ORDERED: POLYETHYLENE GLYCOL 17 GM PACKET NG PRN (14:30)
[2020-01-24] MEDS ORDERED: SENNA/DOCUSATE TABLET PO PRN (14:30)
[2020-01-24 16:22] VITALS: BP 131/76
[2020-01-24 16:44] LABS: MICROSCOPIC INDICATED
[2020-01-24 17:00] LABS: CULTURE INDICATED? NO
[2020-01-24] MEDS ORDERED: TRAZODONE 50MG TABLET ONE (20:13)
[2020-01-24 20:30] VITALS: BP 184/86
[2020-01-24] MEDS: ATORVASTATIN 40 MG TABLET PO SCH (20:57)
[2020-01-24] MEDS: TRAZODONE 100MG TABLET PO SCH (20:58)
[2020-01-24] MEDS: INSULIN GLARGINE 100 UNITS/ML, PEN SQ-INSULIN SCH (21:00)
[2020-01-25 03:00] VITALS: BP 150/88
[2020-01-25] MEDS: OXYcodone IR 5MG TABLET PO PRN ×3 (04:41→21:29)
[2020-01-25] MEDS: HEPARIN 5,000 UNITS/ML, 1ML SQ SCH ×3 (04:41→21:29)
[2020-01-25 05:27] LABS: MEAN CORPUSCULAR HEMOGLOBIN 30.9 pg (27.5-34.5); MEAN CORPUSCULAR HGB CONC 33.7 g/dL (33.2-36.2); MEAN CORPUSCULAR VOLUME 91.8 fL (81-97); MEAN PLATELET VOLUME 11.2 fL (7.4-10.4); PLATELET COUNT 144 x10^3/uL (130-400); RED BLOOD COUNT 4.62 x10^6/uL (4.38-5.82); RED CELL DISTRIBUTION WIDTH 13.3 % (9.4-14.8)
[2020-01-25 05:28] LABS: ALBUMIN 2.5 g/dL (3.4-5.0); ANION GAP 8 mmol/L (5-15); CALCIUM 8.8 mg/dL (8.5-10.1); CHLORIDE 104 mmol/L (98-107)
[2020-01-25 05:31] LABS: ALANINE AMINOTRANSFERASE 20 U/L (12-78); ALKALINE PHOSPHATASE 88 U/L (45-117); BILIRUBIN,TOTAL 0.4 mg/dL (0.2-1.0); CREATININE 1.22 mg/dL (0.7-1.3); TOTAL PROTEIN 6.8 g/dL (6.4-8.2)
[2020-01-25 05:50] LABS: BASOPHILS # (AUTO) 0.03 x10^3/uL (0-0.1); BASOPHILS % (AUTO) 0 % (0-1); EOSINOPHILS # (AUTO) 0.05 x10^3/uL (0-0.4); EOSINOPHILS % (AUTO) 0 % (1-7); LYMPHOCYTES # (AUTO) 1.74 x10^3/uL (1-3.4); LYMPHOCYTES % (AUTO) 10 % (22-44); MD SCAN; MONOCYTES # (AUTO) 1.33 x10^3/uL (0.2-0.8); MONOCYTES % (AUTO) 8 % (2-9); NEUTROPHILS # (AUTO) 13.65 x10^3/uL (1.8-6.8); NEUTROPHILS % (AUTO) 81 % (42-75)
[2020-01-25 06:30] VITALS: BP 156/87
[2020-01-25] MEDS: GABAPENTIN 100 MG CAPSULE PO SCH ×3 (08:53→21:31)
[2020-01-25] MEDS: ASPIRIN 81 MG TABLET EC PO SCH (08:53)
[2020-01-25] MEDS: LISINOPRIL 10 MG TABLET PO SCH ×3 (08:53→09:36)
[2020-01-25] MEDS: AMLODIPINE 5 MG TABLET PO SCH (08:53)
[2020-01-25] MEDS: CARVEDILOL 25 MG TABLET PO SCH ×2 (08:54→21:30)
[2020-01-25] MEDS: SODIUM CHLORIDE FLUSH 10ML SYR IVF SCH ×2 (08:54→21:35)
[2020-01-25] MEDS: INSULIN LISPRO 100 UNITS/ML, PEN SQ-INSULIN SCH ×4 (08:54→21:34)
[2020-01-25] MEDS: PALIPERIDONE 3 MG TAB.ER.24 PO SCH (09:36)
[2020-01-25] MEDS: NICOTINE 7 MG/24 HR PATCH.TD24 TD SCH (11:58)
[2020-01-25 14:59] VITALS: BP 123/54
[2020-01-25 16:07] VITALS: BP 137/76
[2020-01-25 20:19] VITALS: BP 148/78
[2020-01-25] MEDS ORDERED: LISINOPRIL 10 MG TABLET ONE (21:13)
[2020-01-25] MEDS: ATORVASTATIN 40 MG TABLET PO SCH (21:29)
[2020-01-25] MEDS: ONDANSETRON 2MG/ML, 2ML IVPush PRN (21:29)
[2020-01-25] MEDS: LISINOPRIL 20 MG TABLET PO SCH (21:31)
[2020-01-25] MEDS: INSULIN GLARGINE 100 UNITS/ML, PEN SQ-INSULIN SCH (21:35)
[2020-01-25] MEDS ORDERED: TRAZODONE 50MG TABLET ONE (21:36)
[2020-01-25] MEDS: TRAZODONE 100MG TABLET PO SCH (21:37)
[2020-01-26 02:00] VITALS: BP 105/74
[2020-01-26] MEDS: HEPARIN 5,000 UNITS/ML, 1ML SQ SCH ×3 (05:28→20:34)
[2020-01-26 06:14] LABS: MEAN CORPUSCULAR HEMOGLOBIN 31.2 pg (27.5-34.5); MEAN CORPUSCULAR HGB CONC 33.5 g/dL (33.2-36.2); MEAN PLATELET VOLUME 10.9 fL (7.4-10.4); PLATELET COUNT 142 x10^3/uL (130-400); RED BLOOD COUNT 4.32 x10^6/uL (4.38-5.82); RED CELL DISTRIBUTION WIDTH 13.3 % (9.4-14.8)
[2020-01-26 06:22] LABS: ALBUMIN 2.3 g/dL (3.4-5.0); ANION GAP 7 mmol/L (5-15); CALCIUM 8.1 mg/dL (8.5-10.1); CHLORIDE 104 mmol/L (98-107)
[2020-01-26 06:25] LABS: ALANINE AMINOTRANSFERASE 16 U/L (12-78); ALKALINE PHOSPHATASE 82 U/L (45-117); BILIRUBIN,TOTAL 0.4 mg/dL (0.2-1.0); CREATININE 1.43 mg/dL (0.7-1.3); TOTAL PROTEIN 6.2 g/dL (6.4-8.2)
[2020-01-26 06:40] LABS: BASOPHILS # (AUTO) 0.04 x10^3/uL (0-0.1); BASOPHILS % (AUTO) 0 % (0-1); EOSINOPHILS # (AUTO) 0.27 x10^3/uL (0-0.4); EOSINOPHILS % (AUTO) 2 % (1-7); LYMPHOCYTES # (AUTO) 2.74 x10^3/uL (1-3.4); LYMPHOCYTES % (AUTO) 19 % (22-44); MD SCAN; MONOCYTES # (AUTO) 1.87 x10^3/uL (0.2-0.8); MONOCYTES % (AUTO) 13 % (2-9); NEUTROPHILS # (AUTO) 9.89 x10^3/uL (1.8-6.8); NEUTROPHILS % (AUTO) 67 % (42-75)
[2020-01-26] MEDS: INSULIN LISPRO 100 UNITS/ML, PEN SQ-INSULIN SCH ×4 (07:00→20:30)
[2020-01-26] MEDS ORDERED: LISINOPRIL 10 MG TABLET ONE (07:37)
[2020-01-26 07:48] VITALS: BP 121/66
[2020-01-26] MEDS: SODIUM CHLORIDE FLUSH 10ML SYR IVF SCH ×2 (07:50→20:33)
[2020-01-26] MEDS: AMLODIPINE 5 MG TABLET PO SCH (07:51)
[2020-01-26] MEDS: PALIPERIDONE 3 MG TAB.ER.24 PO SCH (07:52)
[2020-01-26] MEDS: GABAPENTIN 100 MG CAPSULE PO SCH ×3 (07:52→20:29)
[2020-01-26] MEDS: LISINOPRIL 20 MG TABLET PO SCH ×2 (07:52→20:29)
[2020-01-26] MEDS: CARVEDILOL 25 MG TABLET PO SCH ×2 (07:52→20:29)
[2020-01-26] MEDS: ASPIRIN 81 MG TABLET EC PO SCH (07:52)
[2020-01-26] MEDS: OXYcodone IR 5MG TABLET PO PRN ×3 (07:55→23:09)
[2020-01-26] MEDS: NICOTINE 7 MG/24 HR PATCH.TD24 TD SCH (10:59)
[2020-01-26] MEDS ORDERED: OMNIPAQUE 350 MG/ML, 100ML BOTTLE ONE (11:35)
[2020-01-26 14:40] VITALS: BP 130/69
[2020-01-26 18:43] VITALS: BP 152/79
[2020-01-26 20:27] VITALS: BP 162/84
[2020-01-26] MEDS: ATORVASTATIN 40 MG TABLET PO SCH (20:29)
[2020-01-26] MEDS: TRAZODONE 100MG TABLET PO SCH (20:29)
[2020-01-26] MEDS: INSULIN GLARGINE 100 UNITS/ML, PEN SQ-INSULIN SCH (20:31)
[2020-01-27 01:19] VITALS: BP 116/58
[2020-01-27] MEDS: HEPARIN 5,000 UNITS/ML, 1ML SQ SCH ×3 (05:18→20:57)
[2020-01-27 06:47] VITALS: BP 136/68
[2020-01-27] MEDS: CEFTRIAXONE PMX 1GM/50ML 50 ML IV SCH (08:02)
[2020-01-27 08:21] LABS: MEAN CORPUSCULAR HEMOGLOBIN 30.9 pg (27.5-34.5); MEAN CORPUSCULAR HGB CONC 33.3 g/dL (33.2-36.2); MEAN CORPUSCULAR VOLUME 92.7 fL (81-97); MEAN PLATELET VOLUME 10.2 fL (7.4-10.4); PLATELET COUNT 158 x10^3/uL (130-400); RED BLOOD COUNT 4.39 x10^6/uL (4.38-5.82); RED CELL DISTRIBUTION WIDTH 13.3 % (9.4-14.8)
[2020-01-27] MEDS: ASPIRIN 81 MG TABLET EC PO SCH (08:25)
[2020-01-27] MEDS: PALIPERIDONE 3 MG TAB.ER.24 PO SCH (08:25)
[2020-01-27] MEDS: INSULIN LISPRO 100 UNITS/ML, PEN SQ-INSULIN SCH ×4 (08:25→20:59)
[2020-01-27] MEDS: GABAPENTIN 100 MG CAPSULE PO SCH ×3 (08:26→20:56)
[2020-01-27] MEDS: LISINOPRIL 20 MG TABLET PO SCH ×2 (08:26→20:56)
[2020-01-27] MEDS: OXYcodone IR 5MG TABLET PO PRN (08:26)
[2020-01-27] MEDS: CARVEDILOL 25 MG TABLET PO SCH ×2 (08:26→20:56)
[2020-01-27] MEDS: AMLODIPINE 5 MG TABLET PO SCH (08:26)
[2020-01-27 08:28] LABS: ANION GAP 5 mmol/L (5-15); CALCIUM 8.4 mg/dL (8.5-10.1); CHLORIDE 105 mmol/L (98-107); CREATININE 1.32 mg/dL (0.7-1.3)
[2020-01-27 08:40] LABS: BASOPHILS # (AUTO) 0.04 x10^3/uL (0-0.1); BASOPHILS % (AUTO) 0 % (0-1); EOSINOPHILS # (AUTO) 0.34 x10^3/uL (0-0.4); EOSINOPHILS % (AUTO) 3 % (1-7); LYMPHOCYTES # (AUTO) 2.54 x10^3/uL (1-3.4); LYMPHOCYTES % (AUTO) 21 % (22-44); MD SCAN; MONOCYTES # (AUTO) 1.68 x10^3/uL (0.2-0.8); MONOCYTES % (AUTO) 14 % (2-9); NEUTROPHILS # (AUTO) 7.43 x10^3/uL (1.8-6.8); NEUTROPHILS % (AUTO) 62 % (42-75)
[2020-01-27] MEDS: DOXYCYCLINE 100 MG in DEXTROSE 5% 250 ML IV SCH ×2 (08:43→20:49)
[2020-01-27] MEDS: SODIUM CHLORIDE FLUSH 10ML SYR IVF SCH ×2 (08:45→21:00)
[2020-01-27] MEDS: NICOTINE 7 MG/24 HR PATCH.TD24 TD SCH (11:20)
[2020-01-27 12:13] VITALS: BP 119/68
[2020-01-27] MEDS ORDERED: OXYcodone IR 5MG TABLET PO PRN ×2 (14:00→23:00)
[2020-01-27] MEDS ORDERED: IBUPROFEN 800 MG TABLET PO PRN (14:00)
[2020-01-27] MEDS: POLYETHYLENE GLYCOL 17 GM PACKET NG SCH (14:40)
[2020-01-27] MEDS: SENNA/DOCUSATE TABLET PO SCH ×2 (14:40→20:57)
[2020-01-27 18:15] VITALS: BP 132/51
[2020-01-27 20:55] VITALS: BP 156/76
[2020-01-27] MEDS: TRAZODONE 100MG TABLET PO SCH (20:56)
[2020-01-27] MEDS: ATORVASTATIN 40 MG TABLET PO SCH (20:56)
[2020-01-27] MEDS ORDERED: INSULIN GLARGINE 100 UNITS/ML, PEN SQ-INSULIN SCH (21:00)
[2020-01-28 00:42] VITALS: BP 147/75
[2020-01-28] MEDS: HEPARIN 5,000 UNITS/ML, 1ML SQ SCH ×2 (05:01→13:30)
[2020-01-28] MEDS: INSULIN LISPRO 100 UNIT/ML, 3ML VIAL SQ-INSULIN SCH ×2 (07:00→11:00)
[2020-01-28] MEDS: CEFTRIAXONE PMX 1GM/50ML 50 ML IV SCH (07:31)
[2020-01-28 07:50] VITALS: BP 159/91
[2020-01-28] MEDS: INSULIN LISPRO 100 UNITS/ML, PEN SQ-INSULIN SCH ×2 (08:11→12:36)
[2020-01-28] MEDS ORDERED: BISACODYL 10 MG SUPP PR PRN (08:30)
[2020-01-28] MEDS: SENNA/DOCUSATE TABLET PO SCH (08:52)
[2020-01-28] MEDS: DOXYCYCLINE 100 MG in DEXTROSE 5% 250 ML IV SCH (08:52)
[2020-01-28] MEDS: POLYETHYLENE GLYCOL 17 GM PACKET NG SCH (08:52)
[2020-01-28] MEDS: AMLODIPINE 5 MG TABLET PO SCH (08:52)
[2020-01-28] MEDS: CARVEDILOL 25 MG TABLET PO SCH (08:52)
[2020-01-28] MEDS: SODIUM CHLORIDE FLUSH 10ML SYR IVF SCH (08:53)
[2020-01-28] MEDS: ASPIRIN 81 MG TABLET EC PO SCH (08:53)
[2020-01-28] MEDS: PALIPERIDONE 3 MG TAB.ER.24 PO SCH (08:53)
[2020-01-28] MEDS: GABAPENTIN 100 MG CAPSULE PO SCH (08:53)
[2020-01-28] MEDS: LISINOPRIL 20 MG TABLET PO SCH (08:53)
[2020-01-28] MEDS: NICOTINE 7 MG/24 HR PATCH.TD24 TD SCH (11:00)
[2020-01-28] MEDS ORDERED: HYDR-3343 PO (11:16)
[2020-01-28] MEDS ORDERED: LISI-170 PO (11:16)
[2020-01-28] MEDS ORDERED: INSU100I13 SQ-INSULIN (11:16)
[2020-01-28] MEDS ORDERED: ALBU6.7H8 PO (11:33)
[2020-01-28] MEDS ORDERED: DOXY100C2 PO (11:33)
[2020-01-28] MEDS ORDERED: CEFD300C37 PO (11:33)
[2020-01-28 14:03] VITALS: BP 153/88
== END 2020-01-28 15:35 | disposition home or self-care (01) | DRG 438 ==
LOC: ED 19:46 → EDIP 20:12 → 3N 21:31 → 3WST 01-24 12:22 → 3N 01-26 10:39
PROVIDERS: ADMIT Internal Medicine; ATTEND Internal Medicine
DX: K85.30 Drug induced acute pancreatitis without necrosis or infection (principal); J18.9 Pneumonia, unspecified organism; N17.0 Acute kidney failure with tubular necrosis; I69.351 Hemiplegia and hemiparesis following cerebral infarction affecting right dominant side; E11.65 Type 2 diabetes mellitus with hyperglycemia; K86.1 Other chronic pancreatitis; E66.9 Obesity, unspecified; E78.5 Hyperlipidemia, unspecified; F17.200 Nicotine dependence, unspecified, uncomplicated; H54.40 Blindness, one eye, unspecified eye; K59.03 Drug induced constipation; Z79.4 Long term (current) use of insulin; Z82.49 Family history of ischemic heart disease and other diseases of the circulatory system; Z83.3 Family history of diabetes mellitus; Z82.3 Family history of stroke; Z81.1 Family history of alcohol abuse and dependence; Z88.1 Allergy status to other antibiotic agents; Z88.6 Allergy status to analgesic agent; Z88.5 Allergy status to narcotic agent; Z83.6 Family history of other diseases of the respiratory system; G89.29 Other chronic pain; R10.9 Unspecified abdominal pain; Z71.3 Dietary counseling and surveillance; Z68.36 Body mass index [BMI] 36.0-36.9, adult; I16.0 Hypertensive urgency; T40.2X5A Adverse effect of other opioids, initial encounter; Y95 Nosocomial condition
CPT/HCPCS: 36415; 96361; 96374; 99285; J7121; 71045; 71260; 74177; 76700; 80048; 80053; 80061; 80307; 81001; 82962; 83036; 83690; 85025; G0378; J0696; J1644; J2405; J7060; Q9967; J1815; J2270; J7030; J7120; Q0177

== ENCOUNTER 2020-01-29 13:17 | Observation (INO) | payer MEDICAID ==
[~2020-01-29] VITALS: Ht 185.4 cm; Wt 115.3 kg
[~2020-01-29 13:17] MED LIST changes: +ALBU6.7H8 PO; +CEFD300C37 PO; +DOXY100C2 PO; +EMPA25TA PO; +LISINOPRIL PO; +PALI3TAB11 PO
--- NOTE | 2020-01-29 13:29 | NUR ---
TASK RN NOTE: biba with c/o headache and vision lost to left eye, noted symptoms on awakening this am at 0200. 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
[2020-01-29 14:00] LABS: BASOPHILS # (AUTO) 0.04 x10^3/uL (0-0.1); BASOPHILS % (AUTO) 0 % (0-1); EOSINOPHILS # (AUTO) 0.16 x10^3/uL (0-0.4); EOSINOPHILS % (AUTO) 1 % (1-7); LYMPHOCYTES # (AUTO) 1.75 x10^3/uL (1-3.4); LYMPHOCYTES % (AUTO) 15 % (22-44); MD NO; MEAN CORPUSCULAR HEMOGLOBIN 30.5 pg (27.5-34.5); MEAN CORPUSCULAR HGB CONC 33.5 g/dL (33.2-36.2); MEAN CORPUSCULAR VOLUME 91.1 fL (81-97); MEAN PLATELET VOLUME 11.1 fL (7.4-10.4); MONOCYTES # (AUTO) 1.06 x10^3/uL (0.2-0.8); MONOCYTES % (AUTO) 9 % (2-9); NEUTROPHILS # (AUTO) 8.36 x10^3/uL (1.8-6.8); NEUTROPHILS % (AUTO) 74 % (42-75); PLATELET COUNT 193 x10^3/uL (130-400); RED BLOOD COUNT 4.87 x10^6/uL (4.38-5.82); RED CELL DISTRIBUTION WIDTH 13.1 % (9.4-14.8)
--- NOTE | 2020-01-29 14:00 | NUR ---
pt back from CT with [employer]-telecom specialist Erin.
[2020-01-29 14:03] LABS: INTERNATIONAL NORMALIZED RATIO 0.96 (0.93-1.1); PROTHROMBIN TIME 10.2 Seconds (9.6-11.5)
[2020-01-29] MEDS ORDERED: OMNIPAQUE 350 MG/ML, 100ML BOTTLE ONE (14:21)
[2020-01-29] MEDS ORDERED: SODIUM POLY SULFONATE UDC 15 GM/60 ML PO ONE (14:30)
[2020-01-29] MEDS ORDERED: CALCIUM CHLORIDE 10%, 10ML SYR IVPush ONE (14:30)
--- NOTE | 2020-01-29 14:47 | NUR ---
full assessment performed by this RN, pt is a&o, resps even and unlabored, nsr on lead application architect. pt notes diminished sensation to left face, arm and leg, left arm and leg slightly weaker than right upon this RN's assessment. pupils equal, round and reactive, face symmetrical, no drift noted. pt states he cannot discern when diminished sensation began, states he only noticed left sided weakness this am "between 8am and 9am". LOLA Ramírez notified. LOLA Ramírez spoke with contribution solicitor neurologist Tim. Per MD Ramírez, pt is not a candidate for TPA. Report given to DANITA Napier who is assuming care at this time.
--- NOTE | 2020-01-29 14:48 | NUR ---
BEDSIDE REPORT FROM CLARA SAMAYOA, PT RESTING IN [facility], AWAITING BED ASSIGNMENT. CALL LIGHT WITHIN REACH.
[2020-01-29] MEDS ORDERED: SODIUM POLY SULFONATE UDC 15 GM/60 ML ONE (14:58)
--- NOTE | 2020-01-29 14:58 | NUR ---
PER DR SHANKAR ONLY GIVE KAYEXELATE AT THIS TIME
[2020-01-29] MEDS ORDERED: POLYETHYLENE GLYCOL 17 GM PACKET PO PRN (15:30)
[2020-01-29] MEDS ORDERED: GLUCAGON 1 MG IM PRN (15:30)
[2020-01-29] MEDS ORDERED: DEXTROSE 50%, 50ML SYRINGE IVPush PRN (15:30)
[2020-01-29] MEDS ORDERED: DEXTROSE 4 GM TAB.CHEW PO PRN (15:30)
[2020-01-29] MEDS ORDERED: hydrALAzine 20 MG/ML, 1ML IV PRN (15:30)
[2020-01-29] MEDS ORDERED: LORazepam 2 MG/ML, 1ML IVPush ONE (15:30)
[2020-01-29] MEDS ORDERED: ONDANSETRON ODT 4 MG PO PRN (15:30)
[2020-01-29] MEDS: INSULIN LISPRO 100 UNITS/ML, PEN SQ-INSULIN SCH ×2 (16:00→20:55)
[2020-01-29] MEDS: GABAPENTIN 100 MG CAPSULE PO SCH ×2 (16:00→20:53)
--- NOTE | 2020-01-29 16:15 | NUR ---
PT GIVEN BEDSIDE COMMODE. CALL LIGHT WITHIN REACH. AWAITING BED ASSIGNMENT
--- NOTE | 2020-01-29 16:32 | NUR ---
PT UP TO COMMODE AND HAD 1 LARGE STOOL
--- NOTE | 2020-01-29 16:52 | NUR ---
REPORT TO BENIGNO RN
--- NOTE | 2020-01-29 17:01 | NUR ---
TASK RN: PT TRANSFERRED TO FLOOR. PT LEFT WITH ALL PERSONAL BELONGINGS.
[2020-01-29 17:28] VITALS: BP 188/102
[2020-01-29] MEDS ORDERED: GADOTERATE 10 MMOL/20 ML SYR ONE (18:46)
[2020-01-29] MEDS: MORPHINE SULFATE 4 MG/ML, 1ML IVPush PRN ×2 (19:15→22:51)
[2020-01-29] MEDS: SODIUM CHLORIDE 0.9% 1,000 ML IV SCH (19:15)
[2020-01-29 19:42] VITALS: BP 148/100
[2020-01-29] MEDS: DOXYCYCLINE 100MG CAP PO SCH (20:52)
[2020-01-29] MEDS: NICOTINE 7 MG/24 HR PATCH.TD24 TD SCH (20:52)
[2020-01-29] MEDS: CEFDINIR 300 MG CAPSULE PO SCH (20:52)
[2020-01-29] MEDS: TRAZODONE 100MG TABLET PO SCH (20:53)
[2020-01-29] MEDS: SODIUM CHLORIDE FLUSH 10ML SYR IVF SCH (20:56)
[2020-01-30] VITALS (7 sets, daily range): BP systolic 149–178; BP diastolic 79–99
[2020-01-30] MEDS: MORPHINE SULFATE 4 MG/ML, 1ML IVPush PRN ×3 (02:06→09:15)
[2020-01-30 06:09] LABS: BASOPHILS # (AUTO) 0.04 x10^3/uL (0-0.1); BASOPHILS % (AUTO) 0 % (0-1); EOSINOPHILS # (AUTO) 0.31 x10^3/uL (0-0.4); EOSINOPHILS % (AUTO) 3 % (1-7); LYMPHOCYTES # (AUTO) 3.02 x10^3/uL (1-3.4); LYMPHOCYTES % (AUTO) 29 % (22-44); MD NO; MEAN CORPUSCULAR HEMOGLOBIN 30.9 pg (27.5-34.5); MEAN CORPUSCULAR HGB CONC 33.5 g/dL (33.2-36.2); MEAN CORPUSCULAR VOLUME 92.1 fL (81-97); MEAN PLATELET VOLUME 10.3 fL (7.4-10.4); MONOCYTES # (AUTO) 1.19 x10^3/uL (0.2-0.8); MONOCYTES % (AUTO) 11 % (2-9); NEUTROPHILS # (AUTO) 5.98 x10^3/uL (1.8-6.8); NEUTROPHILS % (AUTO) 57 % (42-75); PLATELET COUNT 187 x10^3/uL (130-400); RED BLOOD COUNT 4.43 x10^6/uL (4.38-5.82)
[2020-01-30 06:20] LABS: ANION GAP 5 mmol/L (5-15); CALCIUM 8.2 mg/dL (8.5-10.1); CHLORIDE 103 mmol/L (98-107)
[2020-01-30] MEDS: SENNA/DOCUSATE TABLET PO SCH (08:52)
[2020-01-30] MEDS: DOXYCYCLINE 100MG CAP PO SCH ×2 (09:15→20:26)
[2020-01-30] MEDS: INSULIN LISPRO 100 UNITS/ML, PEN SQ-INSULIN SCH ×4 (09:15→20:28)
[2020-01-30] MEDS: CEFDINIR 300 MG CAPSULE PO SCH ×2 (09:15→20:26)
[2020-01-30] MEDS: GABAPENTIN 100 MG CAPSULE PO SCH (09:16)
[2020-01-30] MEDS: SODIUM CHLORIDE FLUSH 10ML SYR IVF SCH ×2 (09:16→20:31)
[2020-01-30] MEDS: SODIUM CHLORIDE 0.9% 1,000 ML IV SCH (13:20)
[2020-01-30] MEDS ORDERED: ALBUTEROL SULFATE 2.5 MG/3 ML NPPB PRN (15:30)
[2020-01-30] MEDS: GABAPENTIN 300 MG CAPSULE PO SCH ×2 (16:06→20:26)
[2020-01-30] MEDS ORDERED: IBUPROFEN 200 MG TABLET PO PRN (18:00)
[2020-01-30] MEDS: NICOTINE 7 MG/24 HR PATCH.TD24 TD SCH (20:00)
[2020-01-30] MEDS: ATORVASTATIN 40 MG TABLET PO SCH (20:26)
[2020-01-30] MEDS: TRAZODONE 100MG TABLET PO SCH (20:26)
[2020-01-30] MEDS: CARVEDILOL 25 MG TABLET PO SCH (20:28)
[2020-01-30] MEDS: LISINOPRIL 20 MG TABLET PO SCH (20:29)
[2020-01-31 02:05] VITALS: BP 150/86
[2020-01-31 06:55] VITALS: BP 141/76
[2020-01-31] MEDS: SODIUM CHLORIDE 0.9% 1,000 ML IV SCH (07:00)
[2020-01-31] MEDS: AMLODIPINE 10 MG TAB PO SCH (07:58)
[2020-01-31] MEDS: GABAPENTIN 300 MG CAPSULE PO SCH ×3 (07:58→20:16)
[2020-01-31] MEDS: SENNA/DOCUSATE TABLET PO SCH (07:58)
[2020-01-31] MEDS: INSULIN LISPRO 100 UNITS/ML, PEN SQ-INSULIN SCH ×4 (07:58→20:14)
[2020-01-31] MEDS: CARVEDILOL 25 MG TABLET PO SCH ×2 (07:59→20:16)
[2020-01-31] MEDS: ASPIRIN 81 MG TABLET EC PO SCH (07:59)
[2020-01-31] MEDS: PALIPERIDONE 3 MG TAB.ER.24 PO SCH (07:59)
[2020-01-31] MEDS: LISINOPRIL 20 MG TABLET PO SCH ×2 (08:00→20:16)
[2020-01-31] MEDS: SODIUM CHLORIDE FLUSH 10ML SYR IVF SCH ×2 (08:01→20:15)
[2020-01-31] MEDS: DOXYCYCLINE 100MG CAP PO SCH ×2 (08:04→20:15)
[2020-01-31] MEDS: CEFDINIR 300 MG CAPSULE PO SCH ×2 (08:04→20:15)
[2020-01-31 12:03] VITALS: BP 144/82
[2020-01-31 19:27] VITALS: BP 137/71
[2020-01-31] MEDS: NICOTINE 7 MG/24 HR PATCH.TD24 TD SCH (20:15)
[2020-01-31] MEDS: TRAZODONE 100MG TABLET PO SCH (20:17)
[2020-01-31] MEDS: ATORVASTATIN 40 MG TABLET PO SCH (20:17)
[2020-01-31] MEDS ORDERED: INSULIN GLARGINE 100 UNITS/ML, PEN SQ-INSULIN SCH (21:00)
[2020-02-01] VITALS: BP 133/85
[2020-02-01 04:00] VITALS: BP 138/78
[2020-02-01 05:26] LABS: BASOPHILS # (AUTO) 0.04 x10^3/uL (0-0.1); BASOPHILS % (AUTO) 1 % (0-1); EOSINOPHILS # (AUTO) 0.33 x10^3/uL (0-0.4); EOSINOPHILS % (AUTO) 4 % (1-7); LYMPHOCYTES # (AUTO) 2.84 x10^3/uL (1-3.4); LYMPHOCYTES % (AUTO) 32 % (22-44); MD NO; MEAN CORPUSCULAR HGB CONC 33.3 g/dL (33.2-36.2); MEAN CORPUSCULAR VOLUME 93.1 fL (81-97); MEAN PLATELET VOLUME 9.5 fL (7.4-10.4); MONOCYTES # (AUTO) 0.85 x10^3/uL (0.2-0.8); MONOCYTES % (AUTO) 10 % (2-9); NEUTROPHILS # (AUTO) 4.86 x10^3/uL (1.8-6.8); NEUTROPHILS % (AUTO) 55 % (42-75); PLATELET COUNT 215 x10^3/uL (130-400); RED BLOOD COUNT 4.37 x10^6/uL (4.38-5.82); RED CELL DISTRIBUTION WIDTH 12.7 % (9.4-14.8)
[2020-02-01 05:27] LABS: ANION GAP 4 mmol/L (5-15); CALCIUM 8.5 mg/dL (8.5-10.1); CHLORIDE 104 mmol/L (98-107); CREATININE 1.15 mg/dL (0.7-1.3)
[2020-02-01 07:14] VITALS: BP 138/75
[2020-02-01] MEDS: INSULIN LISPRO 100 UNITS/ML, PEN SQ-INSULIN SCH ×4 (08:10→20:40)
[2020-02-01] MEDS: DOXYCYCLINE 100MG CAP PO SCH (08:10)
[2020-02-01] MEDS: CARVEDILOL 25 MG TABLET PO SCH ×2 (08:10→20:39)
[2020-02-01] MEDS: SENNA/DOCUSATE TABLET PO SCH (08:11)
[2020-02-01] MEDS: GABAPENTIN 300 MG CAPSULE PO SCH ×3 (08:11→20:39)
[2020-02-01] MEDS: ASPIRIN 81 MG TABLET EC PO SCH (08:11)
[2020-02-01] MEDS: PALIPERIDONE 3 MG TAB.ER.24 PO SCH (08:11)
[2020-02-01] MEDS: SODIUM CHLORIDE FLUSH 10ML SYR IVF SCH ×2 (08:11→20:41)
[2020-02-01] MEDS: CEFDINIR 300 MG CAPSULE PO SCH (08:11)
[2020-02-01] MEDS: AMLODIPINE 10 MG TAB PO SCH (08:11)
[2020-02-01] MEDS: LISINOPRIL 20 MG TABLET PO SCH ×2 (08:11→20:39)
[2020-02-01 12:11] VITALS: BP 156/97
[2020-02-01 19:24] VITALS: BP 163/85
[2020-02-01] MEDS: ATORVASTATIN 40 MG TABLET PO SCH (20:39)
[2020-02-01] MEDS: TRAZODONE 100MG TABLET PO SCH (20:39)
[2020-02-01] MEDS: NICOTINE 7 MG/24 HR PATCH.TD24 TD SCH (20:41)
[2020-02-01] MEDS ORDERED: INSULIN GLARGINE 100 UNITS/ML, PEN SQ-INSULIN SCH (21:00)
[2020-02-02 01:21] VITALS: BP 145/80
[2020-02-02] MEDS: INSULIN LISPRO 100 UNITS/ML, PEN SQ-INSULIN SCH ×4 (07:41→20:48)
[2020-02-02 09:33] VITALS: BP 155/86
[2020-02-02] MEDS: SODIUM CHLORIDE FLUSH 10ML SYR IVF SCH ×2 (09:34→20:48)
[2020-02-02] MEDS: GABAPENTIN 300 MG CAPSULE PO SCH ×3 (09:35→20:46)
[2020-02-02] MEDS: LISINOPRIL 20 MG TABLET PO SCH ×2 (09:35→20:47)
[2020-02-02] MEDS: PALIPERIDONE 3 MG TAB.ER.24 PO SCH (09:35)
[2020-02-02] MEDS: SENNA/DOCUSATE TABLET PO SCH (09:35)
[2020-02-02] MEDS: ASPIRIN 81 MG TABLET EC PO SCH (09:35)
[2020-02-02] MEDS: CARVEDILOL 25 MG TABLET PO SCH ×2 (09:35→20:46)
[2020-02-02] MEDS: AMLODIPINE 10 MG TAB PO SCH (09:35)
[2020-02-02 13:13] VITALS: BP 120/78
[2020-02-02 18:17] VITALS: BP 136/70
[2020-02-02 18:50] VITALS: BP 163/90
[2020-02-02] MEDS: NICOTINE 7 MG/24 HR PATCH.TD24 TD SCH (20:46)
[2020-02-02] MEDS: ATORVASTATIN 40 MG TABLET PO SCH (20:47)
[2020-02-02] MEDS: TRAZODONE 100MG TABLET PO SCH (20:47)
[2020-02-02] MEDS ORDERED: INSULIN GLARGINE 100 UNITS/ML, PEN SQ-INSULIN SCH (21:00)
[2020-02-03 00:41] VITALS: BP 128/76
[2020-02-03 05:22] VITALS: BP 132/81
[2020-02-03 07:45] VITALS: BP 133/81
[2020-02-03] MEDS: SODIUM CHLORIDE FLUSH 10ML SYR IVF SCH (07:50)
[2020-02-03] MEDS: INSULIN LISPRO 100 UNITS/ML, PEN SQ-INSULIN SCH ×2 (07:50→11:03)
[2020-02-03] MEDS: ASPIRIN 81 MG TABLET EC PO SCH (07:51)
[2020-02-03] MEDS: PALIPERIDONE 3 MG TAB.ER.24 PO SCH (07:51)
[2020-02-03] MEDS: AMLODIPINE 10 MG TAB PO SCH (07:51)
[2020-02-03] MEDS: CARVEDILOL 25 MG TABLET PO SCH (07:51)
[2020-02-03] MEDS: SENNA/DOCUSATE TABLET PO SCH (07:51)
[2020-02-03] MEDS: GABAPENTIN 300 MG CAPSULE PO SCH (07:51)
[2020-02-03] MEDS: LISINOPRIL 20 MG TABLET PO SCH (07:51)
[2020-02-03] MEDS ORDERED: GABA300C10 PO (08:23)
[2020-02-03] MEDS ORDERED: INSU100I13 SQ-INSULIN (08:23)
[2020-02-03] MEDS ORDERED: TRAM50TA2 PO (08:23)
[2020-02-03] MEDS ORDERED: HYDR-826 PO (08:23)
[2020-02-03] MEDS ORDERED: HYDR-3343 PO (08:23)
[2020-02-03 12:35] VITALS: BP 133/83
== END 2020-02-03 14:51 ==
LOC: ED 13:28 → EDIP 14:03 → INTOOBSV 14:03 → 4WST 17:09
PROVIDERS: ADMIT Internal Medicine; ATTEND Family Medicine
DX: H54.62 Unqualified visual loss, left eye, normal vision right eye (principal); I10 Essential (primary) hypertension; E11.65 Type 2 diabetes mellitus with hyperglycemia; E78.5 Hyperlipidemia, unspecified; I16.0 Hypertensive urgency; Z79.4 Long term (current) use of insulin; K85.90 Acute pancreatitis without necrosis or infection, unspecified; R10.9 Unspecified abdominal pain; G89.29 Other chronic pain; E87.5 Hyperkalemia; Z86.73 Personal history of transient ischemic attack (TIA), and cerebral infarction without residual deficits; K86.1 Other chronic pancreatitis; Z90.49 Acquired absence of other specified parts of digestive tract; Z79.899 Other long term (current) drug therapy
CPT/HCPCS: 36415; 70450; 70496; 70498; 70544; 70553; 80047; 80048; 82962; 84132; 85025; 85610; 85651; 85730; 93005; 93306; 96374; 96375; 96376; 97116; 97162; 97166; 97530; 97535; 99285; A9575; G0378; J1815; J2060; J2270; J7030; Q0177; Q9967

== ENCOUNTER 2020-03-24 21:25 | Inpatient (IN) | payer MEDICAID ==
[~2020-03-24] VITALS: Ht 185.4 cm; Wt 126.0 kg
[~2020-03-24 21:25] MED LIST changes: +GABA300C10 PO; +TRAM50TA2 PO
--- NOTE | 2020-03-24 21:35 | NUR ---
THIS IS A 45 YO MALE BIB [facility] FROM [facility] FOR ACUTE ONSET N/V, "CHEST TIGHTNESS" WITH ASSOCIATED SHORTNESS OF BREATH. ABD PAIN LOCATED LEFT OF UMBILLICUS, TENDER TO PALPATION. A&OX4, HX OF STROKE 10 WEEKS AGO, PATIENT HAS BILATERAL NEAR FULL BLINDNESS RESULT OF STOKE, PER PATIENT. RESPIRATIONS EVEN AND UNLABORED, ALL MONITORING IN PLACE, VSS AT THIS TIME, NSR ON MONITOR. ERP IN ROOM FOR EVAL. CALL LIGHT IN REACH, PATIENT VERBALIZES UNDERSANDING OF FEELING FOR NURSE CALL BUTTON
[2020-03-24 21:50] LABS: BASOPHILS # (AUTO) 0.04 x10^3/uL (0-0.1); BASOPHILS % (AUTO) 1 % (0-1); EOSINOPHILS # (AUTO) 0.32 x10^3/uL (0-0.4); EOSINOPHILS % (AUTO) 4 % (1-7); LYMPHOCYTES # (AUTO) 2.53 x10^3/uL (1-3.4); LYMPHOCYTES % (AUTO) 31 % (22-44); MD NO; MEAN CORPUSCULAR HEMOGLOBIN 30.3 pg (27.5-34.5); MEAN CORPUSCULAR HGB CONC 33.2 g/dL (33.2-36.2); MEAN CORPUSCULAR VOLUME 91.3 fL (81-97); MEAN PLATELET VOLUME 11.1 fL (7.4-10.4); MONOCYTES # (AUTO) 0.61 x10^3/uL (0.2-0.8); MONOCYTES % (AUTO) 8 % (2-9); NEUTROPHILS # (AUTO) 4.64 x10^3/uL (1.8-6.8); NEUTROPHILS % (AUTO) 57 % (42-75); PLATELET COUNT 124 x10^3/uL (130-400); RED CELL DISTRIBUTION WIDTH 14.3 % (9.4-14.8)
[2020-03-24 22:01] LABS: ACETONE, SERUM Trace (Negative)
[2020-03-24 22:04] LABS: ALANINE AMINOTRANSFERASE 53 U/L (12-78); ALBUMIN 2.9 g/dL (3.4-5.0); ANION GAP 5 mmol/L (5-15); CHLORIDE 110 mmol/L (98-107); CREATININE 1.54 mg/dL (0.7-1.3)
[2020-03-24 22:07] LABS: ALKALINE PHOSPHATASE 84 U/L (45-117); BILIRUBIN,TOTAL 0.2 mg/dL (0.2-1.0); TOTAL PROTEIN 6.7 g/dL (6.4-8.2)
[2020-03-24] MEDS ORDERED: SODIUM CHLORIDE 0.9% 1,000 ML IV ONE ×2 (22:18→22:42)
[2020-03-24] MEDS ORDERED: ONDANSETRON 2MG/ML, 2ML ONE (22:23)
[2020-03-24] MEDS ORDERED: MORPHINE SULFATE 4 MG/ML, 1ML ONE (22:23)
[2020-03-24] MEDS ORDERED: SODIUM CHLORIDE FLUSH 10ML SYR IVF ONE (22:30)
[2020-03-24] MEDS ORDERED: MORPHINE SULFATE 4 MG/ML, 1ML IVPush PRN ×2 (22:30→23:00)
[2020-03-24] MEDS ORDERED: ONDANSETRON 2MG/ML, 2ML IVPush ONE (22:30)
--- NOTE | 2020-03-24 22:40 | NUR ---
PIV PLACED, PATIENT MEDICATED PER EMAR, IVF RUNNING AT THIS TIME. VSS, NADN AT THIS TIME. CALL LIGHT IN REACH.
[2020-03-24] MEDS ORDERED: PREG100C PO (22:56)
[2020-03-24] MEDS ORDERED: PALI117D IM (22:57)
[2020-03-24] MEDS ORDERED: HYDR-3341 PO (22:58)
[2020-03-24] MEDS ORDERED: HYDR-3342 PO (22:58)
[2020-03-24] MEDS ORDERED: SERT50TA28 PO (22:59)
[2020-03-24] MEDS ORDERED: CLON0.1T22 PO (22:59)
[2020-03-24] MEDS ORDERED: SODIUM CHLORIDE FLUSH 10ML SYR IVF PRN (23:00)
[2020-03-24] MEDS ORDERED: ONDANSETRON 2MG/ML, 2ML IVPush PRN ×2 (23:00)
[2020-03-24] MEDS ORDERED: hydrALAzine 20 MG/ML, 1ML IVPush PRN (23:00)
--- NOTE | 2020-03-24 23:05 | NUR ---
UA COLLECTED AND SENT
[2020-03-24 23:18] LABS: MICROSCOPIC AUTO
--- NOTE | 2020-03-24 23:26 | NUR ---
REPORT GIVEN TO DANITA VILLARREAL. PLAN OF CARE DISCUSSED. IVF INFUSING AT TIME OF TRANSFER
[2020-03-25] VITALS: BP 145/85
[2020-03-25] MEDS: SODIUM CHLORIDE 0.9% 1,000 ML IV SCH ×3 (00:06→18:52)
[2020-03-25] MEDS: morphine SULFATE 10 MG/ML, 1ML IVPush PRN ×9 (00:12→23:24)
[2020-03-25] MEDS: NICOTINE 14MG/24 HR PATCH.TD24 TD SCH (01:18)
[2020-03-25] MEDS: INSULIN GLARGINE 100 UNITS/ML, PEN SQ-INSULIN SCH ×2 (01:19→19:44)
[2020-03-25 05:33] LABS: BASOPHILS # (AUTO) 0.03 x10^3/uL (0-0.1); BASOPHILS % (AUTO) 0 % (0-1); EOSINOPHILS # (AUTO) 0.27 x10^3/uL (0-0.4); EOSINOPHILS % (AUTO) 4 % (1-7); LYMPHOCYTES # (AUTO) 2.83 x10^3/uL (1-3.4); LYMPHOCYTES % (AUTO) 40 % (22-44); MD NO; MEAN CORPUSCULAR HEMOGLOBIN 29.7 pg (27.5-34.5); MEAN CORPUSCULAR HGB CONC 32.8 g/dL (33.2-36.2); MEAN CORPUSCULAR VOLUME 90.8 fL (81-97); MEAN PLATELET VOLUME 12.3 fL (7.4-10.4); MONOCYTES # (AUTO) 0.56 x10^3/uL (0.2-0.8); MONOCYTES % (AUTO) 8 % (2-9); NEUTROPHILS # (AUTO) 3.46 x10^3/uL (1.8-6.8); NEUTROPHILS % (AUTO) 48 % (42-75); PLATELET COUNT 125 x10^3/uL (130-400); RED BLOOD COUNT 4.66 x10^6/uL (4.38-5.82); RED CELL DISTRIBUTION WIDTH 14.1 % (9.4-14.8)
[2020-03-25 05:42] LABS: CHOL/HDL RATIO 2.6; LDL/HDL RATIO 1.4 (0.5-3.0)
[2020-03-25] MEDS: INSULIN LISPRO 100 UNITS/ML, PEN SQ-INSULIN SCH ×4 (07:00→19:44)
[2020-03-25 07:23] VITALS: BP 110/69
[2020-03-25] MEDS: PREGABALIN 100 MG CAPSULE PO SCH ×2 (07:51→21:20)
[2020-03-25] MEDS: SERTRALINE 50MG TABLET PO SCH (07:52)
[2020-03-25 14:20] VITALS: BP 128/81
[2020-03-25 19:12] VITALS: BP 116/73
[2020-03-25] MEDS: D5%-0.9% NACL 1,000 ML IV SCH (20:00)
[2020-03-25] MEDS ORDERED: DEXTROSE 50%, 50ML SYRINGE IVPush ONE (20:00)
[2020-03-25] MEDS ORDERED: ATORVASTATIN 40 MG TABLET PO SCH (21:00)
[2020-03-26] MEDS: NICOTINE 14MG/24 HR PATCH.TD24 TD SCH (01:19)
[2020-03-26 01:22] VITALS: BP 126/72
[2020-03-26] MEDS: SODIUM CHLORIDE 0.9% 1,000 ML IV SCH ×2 (03:25→13:24)
[2020-03-26] MEDS: D5%-0.9% NACL 1,000 ML IV SCH (05:17)
[2020-03-26] MEDS: INSULIN LISPRO 100 UNITS/ML, PEN SQ-INSULIN SCH ×2 (07:00→11:00)
[2020-03-26 07:33] VITALS: BP 125/89
[2020-03-26] MEDS: SERTRALINE 50MG TABLET PO SCH (08:25)
[2020-03-26] MEDS: morphine SULFATE 10 MG/ML, 1ML IVPush PRN ×2 (08:25→11:36)
[2020-03-26] MEDS: PREGABALIN 100 MG CAPSULE PO SCH (08:25)
[2020-03-26] MEDS ORDERED: ASPIRIN 81 MG TABLET EC PO SCH (09:00)
[2020-03-26] MEDS ORDERED: AMLODIPINE 5 MG TABLET PO SCH (09:00)
== END 2020-03-26 15:40 | disposition home or self-care (01) | DRG 438 ==
LOC: ED 22:46 → EDIP 23:11 → 3N 23:43
PROVIDERS: ADMIT Internal Medicine; ATTEND Hospitalist
DX: K85.90 Acute pancreatitis without necrosis or infection, unspecified (principal); N17.0 Acute kidney failure with tubular necrosis; F17.200 Nicotine dependence, unspecified, uncomplicated; F12.90 Cannabis use, unspecified, uncomplicated; E11.65 Type 2 diabetes mellitus with hyperglycemia; E78.5 Hyperlipidemia, unspecified; H54.40 Blindness, one eye, unspecified eye; I10 Essential (primary) hypertension; Z86.73 Personal history of transient ischemic attack (TIA), and cerebral infarction without residual deficits
CPT/HCPCS: 36415; 96374; 96375; 99285; J7042; 71045; 80053; 80061; 81001; 82010; 82787; 82800; 82947; 82962; 83690; 85025; 93005; G0378; J2405; J1815; J2270; J7030

== ENCOUNTER 2020-03-29 12:33 | Emergency (ER) | payer MEDICAID ==
[~2020-03-29] VITALS: Ht 182.9 cm; Wt 114.0 kg
[~2020-03-29 12:33] MED LIST changes: +PALI117D IM; +PREG100C PO; +SERT50TA28 PO
--- NOTE | 2020-03-29 12:58 | NUR ---
[facility] SINCE LAST NOC THAT ORIGINATES IN RUQ OF ABDOMEN AND RADIATES TO EPIGASTRIC. PT REPORTS IT FEELS SIMILAR TO PAST EPISODES OF PANCREATITIS. PT WAS HERE 10 WEEKS AGO FOR CVA THAT RESIULTED IN BLINDNESS. REPORT TO AUSTEN Craven RN.
[2020-03-29] MEDS ORDERED: FENO134C PO (13:03)
[2020-03-29] MEDS ORDERED: ONDANSETRON 2MG/ML, 2ML ONE (13:47)
[2020-03-29] MEDS ORDERED: MORPHINE SULFATE 4 MG/ML, 1ML ONE ×2 (13:48→14:19)
[2020-03-29 13:53] LABS: BASOPHILS # (AUTO) 0.04 x10^3/uL (0-0.1); BASOPHILS % (AUTO) 1 % (0-1); EOSINOPHILS # (AUTO) 0.32 x10^3/uL (0-0.4); EOSINOPHILS % (AUTO) 5 % (1-7); LYMPHOCYTES # (AUTO) 2.37 x10^3/uL (1-3.4); LYMPHOCYTES % (AUTO) 35 % (22-44); MD NO; MEAN CORPUSCULAR HEMOGLOBIN 30.1 pg (27.5-34.5); MEAN CORPUSCULAR HGB CONC 33.4 g/dL (33.2-36.2); MEAN CORPUSCULAR VOLUME 90.2 fL (81-97); MEAN PLATELET VOLUME 11.1 fL (7.4-10.4); MONOCYTES # (AUTO) 0.69 x10^3/uL (0.2-0.8); MONOCYTES % (AUTO) 10 % (2-9); NEUTROPHILS # (AUTO) 3.27 x10^3/uL (1.8-6.8); NEUTROPHILS % (AUTO) 49 % (42-75); PLATELET COUNT 135 x10^3/uL (130-400); RED BLOOD COUNT 4.58 x10^6/uL (4.38-5.82); RED CELL DISTRIBUTION WIDTH 13.7 % (9.4-14.8)
[2020-03-29] MEDS: MORPHINE SULFATE 4 MG/ML, 1ML IVPush PRN ×2 (13:58→14:21)
--- NOTE | 2020-03-29 13:59 | NUR ---
PT MEDICATED PER EMAR. RESTING ON GURDrivenBI W/ CALL LIGHT IN REACH. VSS, NADN.
[2020-03-29] MEDS ORDERED: ONDANSETRON 2MG/ML, 2ML IVPush ONE (14:00)
[2020-03-29] MEDS ORDERED: SODIUM CHLORIDE 0.9% 1,000ML IVBOLUS ONE (14:00)
[2020-03-29 14:05] LABS: ALANINE AMINOTRANSFERASE 48 U/L (12-78); ALBUMIN 3.2 g/dL (3.4-5.0); ANION GAP 7 mmol/L (5-15); CALCIUM 8.4 mg/dL (8.5-10.1); CHLORIDE 109 mmol/L (98-107)
[2020-03-29 14:09] LABS: ALKALINE PHOSPHATASE 79 U/L (45-117); BILIRUBIN,TOTAL 0.4 mg/dL (0.2-1.0); TROPONIN I < 0.015 ng/mL (0.000-0.045)
--- NOTE | 2020-03-29 14:45 | NUR ---
PT TO CT.
--- NOTE | 2020-03-29 15:04 | NUR ---
PT RESTING ON NV Self Representation Document Preparation W/ CALL LIGHT IN REACH. RESP EVEN AND UNLABORED, NADN. AWAITING CTA RESULTS.
--- NOTE | 2020-03-29 15:19 | NUR ---
ALL TESTS RESULTED. PT IS UP FOR RECHECK AT THIS TIME.
[2020-03-29] MEDS ORDERED: OMNIPAQUE 350 MG/ML, 100ML BOTTLE ONE (15:23)
--- NOTE | 2020-03-29 15:39 | NUR ---
@ 1527 PT BP 83/61. PT BECAME SEVERELY DIAPHORETIC AND HAD AN EPISODE OF URINARY INCONTINENCE AFTER FILLING UP A URINAL. PT REPROTS HE FELT SUDDEN ONSET OF DIZZINESS. PT REPORTS IT FEELS LIKE HIS BLOOD SUGAR DROPPED. REPORTS TAKING 15UNITS OF INSULIN THIS MORNING AND HAS NOT EATEN SINCE BREAKFAST. UPDATED. FSBS 63, PT PROVIDED W/ JUICE, CRACKERS AND PEANUTBUTTER. PT NOW NORMOTENSIVE. WILL CONTINUE TO MONITOR AND REEVALUATE PLAN FOR DC.
[2020-03-29 17:01] VITALS: BP 130/80
== END 2020-03-29 17:18 | disposition home or self-care (01) ==
LOC: ED 15:17
DX: R07.89 Other chest pain (principal); G89.29 Other chronic pain; R10.13 Epigastric pain; R55 Syncope and collapse; I10 Essential (primary) hypertension; E11.9 Type 2 diabetes mellitus without complications; E78.5 Hyperlipidemia, unspecified; F17.200 Nicotine dependence, unspecified, uncomplicated; Z86.73 Personal history of transient ischemic attack (TIA), and cerebral infarction without residual deficits
CPT/HCPCS: 36415; 71045; 71275; 80053; 82962; 83690; 84484; 85025; 85379; 93005; 96361; 96374; 96375; 96376; 99285; J2270; J2405; J7030; Q9967

== ENCOUNTER 2020-03-31 15:29 | Emergency (ER) | payer MEDICAID ==
[~2020-03-31] VITALS: Ht 185.4 cm; Wt 114.1 kg
[~2020-03-31 15:29] MED LIST changes: +FENO134C PO
--- NOTE | 2020-03-31 15:30 | NUR ---
PT BIB [facility] FROM [facility] WHERE HE IS CURRENTLY BEING TREATED FOR INPATIENT PSYCH. PER EMS, PT C/O INCREASED BP AND NAUSEA TODAY. ALSO REPORTS DIARRHEA X A COUPLE DAYS. PT HAS HX DM, HTN, CVA. BP 194/104 INITITALLY FOR EMS, DECREASED TO 170/87. OTHER VS: HR 85 SR, 97% ON RA, BS 180. IV STARTED BY EMS AND PT MEDICATED WITH 4MG ZOFRAN EN ROUTE. PT ARRIVES TO ED A&OX4, CALM, COOPERATIVE, NO OUTWARD S/S OF DISTRESS. C/O ABD PAIN AND CHEST PAIN 05/10. EKG DONE UPON ARRIVAL.
--- NOTE | 2020-03-31 15:48 | NUR ---
CAREN MEEKS AT BS NOW.
[2020-03-31 16:14] LABS: BASOPHILS # (AUTO) 0.04 x10^3/uL (0-0.1); BASOPHILS % (AUTO) 1 % (0-1); EOSINOPHILS # (AUTO) 0.25 x10^3/uL (0-0.4); EOSINOPHILS % (AUTO) 4 % (1-7); LYMPHOCYTES # (AUTO) 1.89 x10^3/uL (1-3.4); LYMPHOCYTES % (AUTO) 29 % (22-44); MD NO; MEAN CORPUSCULAR HEMOGLOBIN 29.9 pg (27.5-34.5); MEAN CORPUSCULAR HGB CONC 32.9 g/dL (33.2-36.2); MEAN PLATELET VOLUME 10.6 fL (7.4-10.4); MONOCYTES # (AUTO) 0.46 x10^3/uL (0.2-0.8); MONOCYTES % (AUTO) 7 % (2-9); NEUTROPHILS % (AUTO) 59 % (42-75); PLATELET COUNT 150 x10^3/uL (130-400); RED CELL DISTRIBUTION WIDTH 13.8 % (9.4-14.8)
--- NOTE | 2020-03-31 16:25 | NUR ---
IV BOLUS INFUSING. PT UNDERSTANDS POC.
[2020-03-31 16:26] LABS: ALANINE AMINOTRANSFERASE 43 U/L (12-78); ALBUMIN 3.3 g/dL (3.4-5.0); ANION GAP 6 mmol/L (5-15); CALCIUM 8.2 mg/dL (8.5-10.1); CHLORIDE 107 mmol/L (98-107); CREATININE 1.29 mg/dL (0.7-1.3)
[2020-03-31 16:28] LABS: ALKALINE PHOSPHATASE 79 U/L (45-117); BILIRUBIN,TOTAL 0.3 mg/dL (0.2-1.0); TOTAL PROTEIN 7.2 g/dL (6.4-8.2)
[2020-03-31] MEDS ORDERED: MORPHINE SULFATE 4 MG/ML, 1ML ONE ×2 (16:39→17:18)
[2020-03-31] MEDS ORDERED: ONDANSETRON 2MG/ML, 2ML ONE (16:39)
[2020-03-31] MEDS: MORPHINE SULFATE 4 MG/ML, 1ML IVPush PRN ×2 (16:40→17:46)
[2020-03-31] MEDS ORDERED: SODIUM CHLORIDE FLUSH 10ML SYR IVF ONE (17:00)
[2020-03-31] MEDS ORDERED: ONDANSETRON 2MG/ML, 2ML IVPush ONE (17:00)
[2020-03-31] MEDS ORDERED: SODIUM CHLORIDE 0.9% 1,000ML IVBOLUS ONE (17:00)
[2020-03-31] MEDS ORDERED: LISINOPRIL 20 MG TABLET ONE (17:18)
[2020-03-31] MEDS ORDERED: LISINOPRIL 20 MG TABLET PO ONE (17:30)
--- NOTE | 2020-03-31 17:35 | NUR ---
REPORTED TO JANNET JHA RN, HEPARIN GTT TO BE STARTED UPSTAIRS. FACTOR XA ORDERED BUT NOT RESULTED YET.
[2020-03-31 17:47] VITALS: BP 176/93
--- NOTE | 2020-03-31 17:51 | NUR ---
PT C/O INCREASED ABD PAIN AFTER COUGHING. ER PA WAS IN FOR RECHECK. PT MEDICATED FOR ELEVATED BP AND FOR ABD PAIN. STATES HE WILL TAKE CAB BACK TO [facility] WHEN DISCHARGED.
== END 2020-03-31 18:24 | disposition home or self-care (01) ==
LOC: ED 16:38
DX: R10.12 Left upper quadrant pain (principal); R19.7 Diarrhea, unspecified; R11.2 Nausea with vomiting, unspecified; R94.31 Abnormal electrocardiogram [ECG] [EKG]; I10 Essential (primary) hypertension; E11.9 Type 2 diabetes mellitus without complications; E78.5 Hyperlipidemia, unspecified; Z86.73 Personal history of transient ischemic attack (TIA), and cerebral infarction without residual deficits
CPT/HCPCS: 36415; 80053; 83690; 85025; 93005; 96361; 96374; 96375; 96376; 99284; J2270; J2405; J7030

== ENCOUNTER 2020-04-02 14:05 | Emergency (ER) | payer MEDICAID ==
[~2020-04-02] VITALS: Ht 185.4 cm; Wt 113.0 kg
[2020-04-02] MEDS ORDERED: ASPIRIN 81 MG TABLET CHEW ONE (14:43)
[2020-04-02] MEDS ORDERED: MAALOX/HYOSCYAMINE/LIDOCAINE 45 ML BTL ONE (14:44)
[2020-04-02] MEDS ORDERED: ASPIRIN 81 MG TABLET CHEW PO ONE (15:00)
[2020-04-02] MEDS ORDERED: MAALOX/HYOSCYAMINE/LIDOCAINE 45 ML BTL PO ONE (15:00)
--- NOTE | 2020-04-02 15:01 | NUR ---
Pt states CP 05/10, see MAR for meds. Provided with blanket. Will monitor.
[2020-04-02 15:11] LABS: BASOPHILS # (AUTO) 0.03 x10^3/uL (0-0.1); BASOPHILS % (AUTO) 0 % (0-1); EOSINOPHILS # (AUTO) 0.17 x10^3/uL (0-0.4); EOSINOPHILS % (AUTO) 3 % (1-7); LYMPHOCYTES # (AUTO) 1.27 x10^3/uL (1-3.4); LYMPHOCYTES % (AUTO) 19 % (22-44); MD NO; MEAN CORPUSCULAR HEMOGLOBIN 30.7 pg (27.5-34.5); MEAN CORPUSCULAR HGB CONC 33.6 g/dL (33.2-36.2); MEAN CORPUSCULAR VOLUME 91.3 fL (81-97); MEAN PLATELET VOLUME 11.1 fL (7.4-10.4); MONOCYTES # (AUTO) 0.65 x10^3/uL (0.2-0.8); MONOCYTES % (AUTO) 10 % (2-9); NEUTROPHILS # (AUTO) 4.73 x10^3/uL (1.8-6.8); NEUTROPHILS % (AUTO) 69 % (42-75); PLATELET COUNT 144 x10^3/uL (130-400); RED BLOOD COUNT 4.74 x10^6/uL (4.38-5.82); RED CELL DISTRIBUTION WIDTH 13.7 % (9.4-14.8)
[2020-04-02 15:20] LABS: ALBUMIN 3.3 g/dL (3.4-5.0); ANION GAP 5 mmol/L (5-15); CALCIUM 8.6 mg/dL (8.5-10.1); CHLORIDE 107 mmol/L (98-107)
[2020-04-02 15:25] LABS: ALANINE AMINOTRANSFERASE 32 U/L (12-78); ALKALINE PHOSPHATASE 75 U/L (45-117); BILIRUBIN,TOTAL 0.6 mg/dL (0.2-1.0); TOTAL PROTEIN 7.1 g/dL (6.4-8.2); TROPONIN I < 0.015 ng/mL (0.000-0.045)
[2020-04-02] MEDS ORDERED: FAMOTIDINE 20 MG TABLET ONE (16:38)
--- NOTE | 2020-04-02 16:41 | NUR ---
Ptstates CP mostly resolved, states having some stomach discomfort. Provided with Pepcid per Dr Galarza. Pt resting, no other complaints.
[2020-04-02] MEDS ORDERED: FAMOTIDINE 20 MG TABLET PO ONE (17:00)
[2020-04-02 17:22] VITALS: BP 170/107
--- NOTE | 2020-04-02 17:22 | NUR ---
Pt states improved chest and abdominal discomfort.
== END 2020-04-02 17:34 | disposition home or self-care (01) ==
LOC: ED 14:45
DX: R07.2 Precordial pain (principal); R10.13 Epigastric pain; I10 Essential (primary) hypertension; E11.9 Type 2 diabetes mellitus without complications; E78.5 Hyperlipidemia, unspecified; F17.200 Nicotine dependence, unspecified, uncomplicated; Z90.49 Acquired absence of other specified parts of digestive tract; Z86.73 Personal history of transient ischemic attack (TIA), and cerebral infarction without residual deficits
CPT/HCPCS: 36415; 71045; 80053; 83690; 84484; 85025; 93005; 99285

== ENCOUNTER 2020-05-19 10:39 | Emergency (ER) | payer MEDICAID ==
[~2020-05-19] VITALS: Ht 185.4 cm; Wt 116.4 kg
[2020-05-19] MEDS ORDERED: PROMETHAZINE 25 MG/ML, 1ML IM ONE (11:00)
[2020-05-19] MEDS ORDERED: PROMETHAZINE 25 MG/ML, 1ML ONE (11:09)
[2020-05-19 11:27] LABS: BASOPHILS # (AUTO) 0.04 x10^3/uL (0-0.1); BASOPHILS % (AUTO) 1 % (0-1); EOSINOPHILS # (AUTO) 0.29 x10^3/uL (0-0.4); EOSINOPHILS % (AUTO) 4 % (1-7); LYMPHOCYTES # (AUTO) 1.61 x10^3/uL (1-3.4); LYMPHOCYTES % (AUTO) 23 % (22-44); MD NO; MEAN CORPUSCULAR HEMOGLOBIN 30.9 pg (27.5-34.5); MEAN CORPUSCULAR HGB CONC 33.5 g/dL (33.2-36.2); MEAN CORPUSCULAR VOLUME 92.3 fL (81-97); MEAN PLATELET VOLUME 9.9 fL (7.4-10.4); MONOCYTES # (AUTO) 0.53 x10^3/uL (0.2-0.8); MONOCYTES % (AUTO) 8 % (2-9); NEUTROPHILS # (AUTO) 4.46 x10^3/uL (1.8-6.8); NEUTROPHILS % (AUTO) 64 % (42-75); PLATELET COUNT 144 x10^3/uL (130-400); RED BLOOD COUNT 4.87 x10^6/uL (4.38-5.82); RED CELL DISTRIBUTION WIDTH 14.9 % (9.4-14.8)
[2020-05-19 11:41] LABS: ALBUMIN 3.4 g/dL (3.4-5.0); ANION GAP 8 mmol/L (5-15); CALCIUM 8.7 mg/dL (8.5-10.1); CHLORIDE 110 mmol/L (98-107)
[2020-05-19 11:45] LABS: ALANINE AMINOTRANSFERASE 20 U/L (12-78); ALKALINE PHOSPHATASE 51 U/L (45-117); BILIRUBIN,TOTAL 0.4 mg/dL (0.2-1.0); CREATININE 1.93 mg/dL (0.7-1.3); TOTAL PROTEIN 6.9 g/dL (6.4-8.2); TROPONIN I < 0.015 ng/mL (0.000-0.045)
[2020-05-19 11:47] VITALS: BP 171/96
== END 2020-05-19 12:16 ==
LOC: ED 11:02
DX: R51 Headache (principal); I10 Essential (primary) hypertension; G89.29 Other chronic pain; R10.13 Epigastric pain; R07.9 Chest pain, unspecified; R94.31 Abnormal electrocardiogram [ECG] [EKG]; R11.0 Nausea; E11.9 Type 2 diabetes mellitus without complications; E78.5 Hyperlipidemia, unspecified; F17.200 Nicotine dependence, unspecified, uncomplicated; Z86.73 Personal history of transient ischemic attack (TIA), and cerebral infarction without residual deficits; Z90.49 Acquired absence of other specified parts of digestive tract
CPT/HCPCS: 36415; 71045; 80053; 83690; 84484; 85025; 93005; 96372; 99285; J2550

== ENCOUNTER 2020-05-25 13:53 | Emergency (ER) | payer MEDICAID ==
[~2020-05-25] VITALS: Ht 182.9 cm; Wt 118.0 kg
[~2020-05-25 13:53] MED LIST changes: -PANT40TA5 PO; +PANT40TA6 PO
[2020-05-25 14:02] VITALS: BP 104/96
--- NOTE | 2020-05-25 14:10 | NUR ---
BIB [facility], PT WITH C/O GEN MALAISE AND BACK PAIN. PT WITH HX DM, TOOK LANTUS LAST NIGHT AND THIS AM, BUT THEN DID NOT EAT. FSBG 73 PER EMS. PT STATES "I JUST DIDNT FEEL LIKE EATING" PT STATES BS USUALLY RUNS AROUND 130. NO INTERVENTION FURNITURE UPHOLSTERER. PT TO BP, CONT PUSE OX.
[2020-05-25] MEDS ORDERED: OXYcodone/APAP 10/325MG TABLET PO ONE (14:30)
[2020-05-25] MEDS ORDERED: OXYcodone/APAP 10/325MG TABLET ONE (15:07)
== END 2020-05-25 15:53 | disposition home or self-care (01) ==
LOC: ED 14:46
DX: M54.5 Low back pain (principal); M54.6 Pain in thoracic spine; R11.2 Nausea with vomiting, unspecified; R53.1 Weakness; R20.0 Anesthesia of skin; I10 Essential (primary) hypertension; E11.9 Type 2 diabetes mellitus without complications; Z86.73 Personal history of transient ischemic attack (TIA), and cerebral infarction without residual deficits; Z90.49 Acquired absence of other specified parts of digestive tract
CPT/HCPCS: 99283

== ENCOUNTER 2020-05-27 19:48 | Observation (INO) | payer MEDICAID ==
[~2020-05-27] VITALS: Ht 185.4 cm; Wt 122.9 kg
[~2020-05-27 19:48] MED LIST changes: +PANT40TA5 PO; -PANT40TA6 PO
[2020-05-27] MEDS ORDERED: DEXTROSE 50%, 50ML SYRINGE ONE (19:54)
--- NOTE | 2020-05-27 20:13 | NUR ---
ETHAN ALEXANDER from [employer]. C/O dizziness, diaphoresis, mid/ upper back pain. Took insulin, but did not eat dinner. FSBS was 37. 2 tubes of oral glucose were given and his FSBS = 147. FSBS = 44 upon arrival in ED. A&Ox4, but slightly lethargic. EKG done. IV started, labs drawn, and an amp of D50 admin. Place don NIBP, pulse ox and quality assurance monitor final. Will continue to monitor.
[2020-05-27] MEDS ORDERED: LISI2.5T PO (20:22)
[2020-05-27] MEDS ORDERED: PREG25CA PO (20:22)
[2020-05-27] MEDS ORDERED: TRAZ-175 PO (20:22)
[2020-05-27] MEDS ORDERED: TRAM50TA2 PO (20:22)
[2020-05-27] MEDS ORDERED: OXYC5CAP2 PO (20:22)
[2020-05-27] MEDS ORDERED: CARV3.1212 PO (20:22)
[2020-05-27] MEDS ORDERED: ONDA4TAB7 PO (20:22)
[2020-05-27] MEDS ORDERED: METH500T7 PO (20:22)
[2020-05-27] MEDS ORDERED: SERT25TA3 PO (20:22)
[2020-05-27] MEDS ORDERED: ASPI-496 PO (20:22)
[2020-05-27] MEDS ORDERED: DEXTROSE 50%, 50ML SYRINGE IVPush ONE (20:30)
[2020-05-27] MEDS ORDERED: PLEASE ENTER HEIGHT AND WEIGHT MC SCH (20:30)
[2020-05-27 20:31] LABS: BASOPHILS # (AUTO) 0.06 x10^3/uL (0-0.1); BASOPHILS % (AUTO) 1 % (0-1); EOSINOPHILS # (AUTO) 0.38 x10^3/uL (0-0.4); EOSINOPHILS % (AUTO) 4 % (1-7); LYMPHOCYTES # (AUTO) 3.26 x10^3/uL (1-3.4); LYMPHOCYTES % (AUTO) 35 % (22-44); MD NO; MEAN CORPUSCULAR HEMOGLOBIN 30.1 pg (27.5-34.5); MEAN CORPUSCULAR HGB CONC 32.9 g/dL (33.2-36.2); MEAN CORPUSCULAR VOLUME 91.6 fL (81-97); MEAN PLATELET VOLUME 10.1 fL (7.4-10.4); MONOCYTES # (AUTO) 0.81 x10^3/uL (0.2-0.8); MONOCYTES % (AUTO) 9 % (2-9); NEUTROPHILS # (AUTO) 4.86 x10^3/uL (1.8-6.8); NEUTROPHILS % (AUTO) 52 % (42-75); PLATELET COUNT 236 x10^3/uL (130-400); RED BLOOD COUNT 5.38 x10^6/uL (4.38-5.82); RED CELL DISTRIBUTION WIDTH 14.8 % (9.4-14.8)
--- NOTE | 2020-05-27 20:38 | NUR ---
Remains diaphoretic. BP = 147/86 at this time. Arousable to verbal command.
[2020-05-27 20:41] LABS: ANION GAP 8 mmol/L (5-15); CALCIUM 8.7 mg/dL (8.5-10.1); CHLORIDE 103 mmol/L (98-107); CREATININE 1.94 mg/dL (0.7-1.3)
[2020-05-27 20:45] LABS: TROPONIN I < 0.015 ng/mL (0.000-0.045)
--- NOTE | 2020-05-27 21:08 | NUR ---
Patient back from CT. BP improved. MD aware. Patient says he does not feel any better than when he arrived.
[2020-05-27] MEDS ORDERED: OMNIPAQUE 350 MG/ML, 75ML BOTTLE ONE (21:10)
--- NOTE | 2020-05-27 22:19 | NUR ---
Pt unable to provide urine at this time.
--- NOTE | 2020-05-27 22:56 | NUR ---
Pt to be fed meal tray and reevaluate how patient is doing. Call to [facility].
--- NOTE | 2020-05-27 23:06 | NUR ---
Pt reports he still feels very tired, pt reports he is not very hungry at the moment. MD would like to feed patient prior to DC. pts BG stable.
[2020-05-27] MEDS ORDERED: METHOCARBAMOL 500 MG TABLET ONE (23:43)
[2020-05-27] MEDS ORDERED: KETOROLAC 30 MG/1 ML ONE (23:43)
--- NOTE | 2020-05-27 23:51 | NUR ---
Report to MINDY SAMAYOA
--- NOTE | 2020-05-27 23:52 | NUR ---
Report received from DANITA Rene. This RN to assume care. Awaiting meal to be given to patient; will evaluate how he tolerates.
--- NOTE | 2020-05-28 00:05 | NUR ---
Provided meal to patient.
[2020-05-28] MEDS ORDERED: ONDANSETRON 2MG/ML, 2ML ONE (00:24)
[2020-05-28] MEDS ORDERED: HYDROcodone/APAP 5/325 TABLET ONE (00:24)
--- NOTE | 2020-05-28 00:28 | NUR ---
Patient ate a couple bites of a sandwich; states it makes him nauseous. Unable to tolerate any more. Patient c/o back pain and nausea. Medicated patient per dec.
[2020-05-28] MEDS ORDERED: HYDROcodone/APAP 5/325 TABLET PO ONE (01:00)
[2020-05-28] MEDS ORDERED: ONDANSETRON 2MG/ML, 2ML IVPush ONE (01:00)
--- NOTE | 2020-05-28 01:34 | NUR ---
Report given to DANITA Vallejo. Patient to be transfered to room 520-1.
[2020-05-28] MEDS ORDERED: POTASSIUM CHLORIDE 20 MEQ PACKET PO ONE (02:00)
[2020-05-28 02:08] LABS: CREATINE KINASE, TOTAL 740 U/L (39-308); TROPONIN I < 0.015 ng/mL (0.000-0.045)
[2020-05-28] MEDS: ENOXAPARIN 40 MG/0.4 ML SQ SCH (02:56)
[2020-05-28] MEDS: SODIUM CHLORIDE 0.9% 1,000 ML IV SCH ×2 (02:58→17:49)
[2020-05-28] MEDS ORDERED: TEMAZEPAM 15 MG CAPSULE PO PRN (03:00)
[2020-05-28] MEDS ORDERED: LORazepam 2 MG/ML, 1ML IVPush PRN (03:00)
[2020-05-28] MEDS ORDERED: BISACODYL 10 MG SUPP PR PRN (03:00)
[2020-05-28] MEDS ORDERED: MELATONIN 5 MG TABLET PO PRN (03:00)
[2020-05-28] MEDS ORDERED: POLYETHYLENE GLYCOL 17 GM PACKET PO PRN (03:00)
[2020-05-28] MEDS ORDERED: hydrALAzine 20 MG/ML, 1ML IV PRN (03:00)
[2020-05-28] MEDS ORDERED: hydrALAzine 20 MG/ML, 1ML IVPush PRN (03:00)
[2020-05-28] MEDS ORDERED: ONDANSETRON 2MG/ML, 2ML IVPush PRN (03:00)
[2020-05-28] MEDS ORDERED: DOCUSATE 100 MG CAPSULE PO PRN (03:00)
[2020-05-28 05:31] LABS: BASOPHILS # (AUTO) 0.05 x10^3/uL (0-0.1); BASOPHILS % (AUTO) 1 % (0-1); EOSINOPHILS # (AUTO) 0.35 x10^3/uL (0-0.4); EOSINOPHILS % (AUTO) 4 % (1-7); LYMPHOCYTES # (AUTO) 2.56 x10^3/uL (1-3.4); LYMPHOCYTES % (AUTO) 32 % (22-44); MD NO; MEAN CORPUSCULAR HEMOGLOBIN 30.4 pg (27.5-34.5); MEAN CORPUSCULAR HGB CONC 32.8 g/dL (33.2-36.2); MEAN CORPUSCULAR VOLUME 92.6 fL (81-97); MEAN PLATELET VOLUME 10.1 fL (7.4-10.4); MONOCYTES # (AUTO) 0.76 x10^3/uL (0.2-0.8); MONOCYTES % (AUTO) 9 % (2-9); NEUTROPHILS % (AUTO) 54 % (42-75); PLATELET COUNT 204 x10^3/uL (130-400); RED BLOOD COUNT 4.99 x10^6/uL (4.38-5.82); RED CELL DISTRIBUTION WIDTH 14.6 % (9.4-14.8)
[2020-05-28 05:36] LABS: ANION GAP 5 mmol/L (5-15); CALCIUM 8.5 mg/dL (8.5-10.1); CHLORIDE 107 mmol/L (98-107); CHOLESTEROL, TOTAL 170 mg/dL (140-239); CREATININE 1.66 mg/dL (0.7-1.3); TRIGLYCERIDES 129 mg/dL (50-200); VLDL CHOLESTEROL 26 mg/dL (0-25)
[2020-05-28 05:38] LABS: CHOL/HDL RATIO 4.1; HDL CHOL % 24 % (26-37); HDL CHOLESTEROL (DIRECT) 41 mg/dL (40-60); LDL CHOLESTEROL,CALCULATED 103 mg/dL (54-169); LDL/HDL RATIO 2.5 (0.5-3.0)
[2020-05-28] MEDS: INSULIN LISPRO 100 UNITS/ML, PEN SQ-INSULIN SCH ×4 (07:00→21:24)
[2020-05-28 07:13] VITALS: BP 136/87
[2020-05-28] MEDS ORDERED: REGADENOSON 0.4 MG/5 ML SYRINGE ONE (07:54)
[2020-05-28] MEDS: METHOCARBAMOL 500 MG TABLET PO PRN ×2 (08:35→21:24)
[2020-05-28] MEDS: PREGABALIN 25 MG CAPSULE PO SCH (08:35)
[2020-05-28] MEDS: SERTRALINE 50MG TABLET PO SCH (08:35)
[2020-05-28] MEDS: NITROGLYCERIN OINT 2%, 1GM TP SCH ×2 (09:00→21:00)
[2020-05-28] MEDS ORDERED: CARVEDILOL 3.125 MG TABLET PO SCH (09:00)
[2020-05-28 09:33] LABS: TROPONIN I < 0.015 ng/mL (0.000-0.045)
[2020-05-28] MEDS: CARVEDILOL 6.25 MG TABLET PO SCH ×2 (11:38→21:23)
[2020-05-28] MEDS: ASPIRIN 81 MG TABLET EC PO SCH (11:38)
[2020-05-28 13:01] VITALS: BP 135/95
[2020-05-28] MEDS: FAMOTIDINE 20 MG TABLET PO SCH ×2 (13:09→21:23)
[2020-05-28] MEDS: ASCORBIC ACID 250 MG TAB PO SCH ×2 (13:09→17:00)
[2020-05-28 15:00] LABS: MICROSCOPIC AUTO
[2020-05-28 17:04] LABS: CREATINE KINASE, TOTAL 409 U/L (39-308); TROPONIN I < 0.015 ng/mL (0.000-0.045)
[2020-05-28] MEDS ORDERED: ASCORBIC ACID 500 MG TABLET ONE (17:40)
[2020-05-28] MEDS: OXYcodone IR 5MG TABLET PO PRN ×2 (17:52→22:16)
[2020-05-28 19:43] VITALS: BP 159/87
[2020-05-28] MEDS ORDERED: TRAZODONE 100MG TABLET PO SCH (21:00)
[2020-05-28] MEDS ORDERED: INSULIN GLARGINE 100 UNITS/ML, PEN SQ-INSULIN SCH ×2 (21:00)
[2020-05-29] MEDS: SODIUM CHLORIDE 0.9% 1,000 ML IV SCH (01:00)
[2020-05-29 03:20] VITALS: BP 149/78
[2020-05-29] MEDS: ENOXAPARIN 40 MG/0.4 ML SQ SCH (04:30)
[2020-05-29 06:37] LABS: ALANINE AMINOTRANSFERASE 21 U/L (12-78); ANION GAP 6 mmol/L (5-15); CALCIUM 8.3 mg/dL (8.5-10.1); CHLORIDE 110 mmol/L (98-107); CREATININE 1.33 mg/dL (0.7-1.3)
[2020-05-29 06:40] LABS: ALKALINE PHOSPHATASE 42 U/L (45-117); BILIRUBIN,TOTAL 0.4 mg/dL (0.2-1.0); TOTAL PROTEIN 6.7 g/dL (6.4-8.2)
[2020-05-29 06:42] LABS: BASOPHILS # (AUTO) 0.05 x10^3/uL (0-0.1); BASOPHILS % (AUTO) 1 % (0-1); EOSINOPHILS # (AUTO) 0.31 x10^3/uL (0-0.4); EOSINOPHILS % (AUTO) 5 % (1-7); LYMPHOCYTES # (AUTO) 2.67 x10^3/uL (1-3.4); LYMPHOCYTES % (AUTO) 41 % (22-44); MD NO; MEAN CORPUSCULAR HEMOGLOBIN 30.3 pg (27.5-34.5); MEAN CORPUSCULAR HGB CONC 32.7 g/dL (33.2-36.2); MEAN CORPUSCULAR VOLUME 92.4 fL (81-97); MEAN PLATELET VOLUME 10.2 fL (7.4-10.4); MONOCYTES # (AUTO) 0.47 x10^3/uL (0.2-0.8); MONOCYTES % (AUTO) 7 % (2-9); NEUTROPHILS # (AUTO) 2.99 x10^3/uL (1.8-6.8); NEUTROPHILS % (AUTO) 46 % (42-75); PLATELET COUNT 190 x10^3/uL (130-400); RED BLOOD COUNT 4.89 x10^6/uL (4.38-5.82); RED CELL DISTRIBUTION WIDTH 14.7 % (9.4-14.8)
[2020-05-29] MEDS: INSULIN LISPRO 100 UNITS/ML, PEN SQ-INSULIN SCH ×2 (07:00→11:00)
[2020-05-29 07:11] VITALS: BP 158/92
[2020-05-29] MEDS ORDERED: EMPA10TA PO (07:55)
[2020-05-29] MEDS: ASCORBIC ACID 250 MG TAB PO SCH (08:00)
[2020-05-29] MEDS: NITROGLYCERIN OINT 2%, 1GM TP SCH (09:00)
[2020-05-29] MEDS ORDERED: ASCORBIC ACID 500 MG TABLET ONE (09:08)
[2020-05-29] MEDS: FAMOTIDINE 20 MG TABLET PO SCH (09:15)
[2020-05-29] MEDS: CARVEDILOL 6.25 MG TABLET PO SCH (09:16)
[2020-05-29] MEDS: PREGABALIN 25 MG CAPSULE PO SCH (09:16)
[2020-05-29] MEDS: SERTRALINE 50MG TABLET PO SCH (09:16)
[2020-05-29] MEDS: METHOCARBAMOL 500 MG TABLET PO PRN (09:16)
[2020-05-29] MEDS: ASPIRIN 81 MG TABLET EC PO SCH (09:16)
[2020-05-29 12:47] VITALS: BP 185/96
[2020-05-29] MEDS ORDERED: LISI-167 PO (13:20)
[2020-05-29] MEDS ORDERED: LISINOPRIL 5 MG TABLET PO SCH (21:00)
== END 2020-05-29 15:16 | disposition home or self-care (01) ==
LOC: ED 21:21 → INTOOBSV 05-28 00:24 → EDIP 05-28 00:24 → 5SO 05-28 01:45 → DCLOUNGE 05-29 15:05
PROVIDERS: ADMIT Internal Medicine; ATTEND Internal Medicine
DX: E11.649 Type 2 diabetes mellitus with hypoglycemia without coma (principal); E87.1 Hypo-osmolality and hyponatremia; N17.0 Acute kidney failure with tubular necrosis; E11.22 Type 2 diabetes mellitus with diabetic chronic kidney disease; E11.40 Type 2 diabetes mellitus with diabetic neuropathy, unspecified; E78.5 Hyperlipidemia, unspecified; E87.6 Hypokalemia; F17.210 Nicotine dependence, cigarettes, uncomplicated; F25.9 Schizoaffective disorder, unspecified; F32.9 Major depressive disorder, single episode, unspecified; F43.10 Post-traumatic stress disorder, unspecified; H54.40 Blindness, one eye, unspecified eye; I12.9 Hypertensive chronic kidney disease with stage 1 through stage 4 chronic kidney disease, or unspecified chronic kidney disease; N18.3 Chronic kidney disease, stage 3 (moderate); Z79.4 Long term (current) use of insulin; Z86.73 Personal history of transient ischemic attack (TIA), and cerebral infarction without residual deficits; Z79.82 Long term (current) use of aspirin
CPT/HCPCS: 36415; 71045; 71275; 74175; 78452; 80048; 80053; 80061; 81001; 82040; 82550; 82962; 83036; 83735; 84100; 84484; 85025; 93005; 93017; 93306; 96361; 96372; 96374; 96375; 99285; A9502; C9898; G0378; J0360; J1650; J1815; J2405; J2785; J7030; Q9967

== ENCOUNTER 2020-06-29 22:36 | Emergency (ER) | payer MEDICAID ==
[~2020-06-29 22:36] MED LIST changes: +ASPI-496 PO; +EMPA10TA PO; +LISI2.5T PO; +METH500T7 PO; +OXYC5CAP2 PO; +PREG25CA PO; +SERT25TA3 PO
--- NOTE | 2020-06-29 22:44 | NUR ---
MD Ratliff at bedside
--- NOTE | 2020-06-29 22:58 | NUR ---
Pt traveled to [place] with it telecom technician
[2020-06-29] MEDS ORDERED: ONDANSETRON 2MG/ML, 2ML IVPush ONE (23:00)
[2020-06-29] MEDS ORDERED: MORPHINE SULFATE 4 MG/ML, 1ML IVPush PRN (23:00)
[2020-06-29] MEDS ORDERED: ONDANSETRON 2MG/ML, 2ML ONE (23:17)
[2020-06-29] MEDS ORDERED: MORPHINE SULFATE 4 MG/ML, 1ML ONE (23:18)
[2020-06-29 23:24] LABS: BASOPHILS # (AUTO) 0.06 x10^3/uL (0-0.1); BASOPHILS % (AUTO) 1 % (0-1); EOSINOPHILS # (AUTO) 0.29 x10^3/uL (0-0.4); EOSINOPHILS % (AUTO) 4 % (1-7); LYMPHOCYTES # (AUTO) 2.22 x10^3/uL (1-3.4); LYMPHOCYTES % (AUTO) 27 % (22-44); MD NO; MEAN CORPUSCULAR HEMOGLOBIN 30.6 pg (27.5-34.5); MEAN CORPUSCULAR HGB CONC 33.6 g/dL (33.2-36.2); MEAN CORPUSCULAR VOLUME 91.3 fL (81-97); MEAN PLATELET VOLUME 11.7 fL (7.4-10.4); MONOCYTES # (AUTO) 0.76 x10^3/uL (0.2-0.8); MONOCYTES % (AUTO) 9 % (2-9); NEUTROPHILS # (AUTO) 4.86 x10^3/uL (1.8-6.8); NEUTROPHILS % (AUTO) 59 % (42-75); PLATELET COUNT 148 x10^3/uL (130-400); RED BLOOD COUNT 4.86 x10^6/uL (4.38-5.82); RED CELL DISTRIBUTION WIDTH 14.5 % (9.4-14.8)
[2020-06-29 23:26] LABS: ALBUMIN 3.3 g/dL (3.4-5.0); ANION GAP 7 mmol/L (5-15); CALCIUM 8.7 mg/dL (8.5-10.1); CHLORIDE 105 mmol/L (98-107)
[2020-06-29 23:32] LABS: ALANINE AMINOTRANSFERASE 23 U/L (12-78); ALKALINE PHOSPHATASE 54 U/L (45-117); BILIRUBIN,TOTAL 0.2 mg/dL (0.2-1.0); CREATININE 1.97 mg/dL (0.7-1.3); TROPONIN I < 0.015 ng/mL (0.000-0.045)
--- NOTE | 2020-06-30 00:17 | NUR ---
MD Ratliff at bedside
[2020-06-30] MEDS ORDERED: METHOCARBAMOL 750 MG TABLET ONE (00:29)
[2020-06-30] MEDS ORDERED: METHOCARBAMOL 750 MG TABLET PO ONE (00:30)
[2020-06-30 01:13] VITALS: BP 124/89
--- NOTE | 2020-06-30 01:14 | NUR ---
Pt states adequate pain control. Plan to d/c home. Pt states he doesn't have anyone to pick him up. States he is able to get himself into apartment building independently. Plan for cab voucher, pt agreeable to plan and feels comfortable leaving ED independently. balance assembler aware of plan
== END 2020-06-30 01:19 | disposition home or self-care (01) ==
LOC: ED 23:20
DX: S16.1XXA Strain of muscle, fascia and tendon at neck level, initial encounter (principal); S29.012A Strain of muscle and tendon of back wall of thorax, initial encounter; S09.90XA Unspecified injury of head, initial encounter; R55 Syncope and collapse; I10 Essential (primary) hypertension; F20.9 Schizophrenia, unspecified; E11.65 Type 2 diabetes mellitus with hyperglycemia; F17.200 Nicotine dependence, unspecified, uncomplicated; Z86.73 Personal history of transient ischemic attack (TIA), and cerebral infarction without residual deficits; Z90.89 Acquired absence of other organs; X58.XXXA Exposure to other specified factors, initial encounter; Y93.89 Activity, other specified; Y92.89 Other specified places as the place of occurrence of the external cause; Y99.8 Other external cause status
CPT/HCPCS: 36415; 70450; 71045; 72125; 80053; 84484; 85025; 93005; 96374; 96375; 99285; J2270; J2405

== ENCOUNTER 2020-07-05 17:31 | Emergency (ER) | payer MEDICAID ==
[~2020-07-05] VITALS: Ht 185.4 cm; Wt 122.4 kg
[~2020-07-05 17:31] MED LIST changes: -PANT40TA5 PO; +PANT40TA6 PO
--- NOTE | 2020-07-05 17:50 | NUR ---
[facility] CALLED [facility] DUE TO PT VOMITTING AND HAVING HIGH BP. WHEN BENJAMIN ARRIVED HIS BP WAS 214/126. PT'S BP IS NOW 223/132. PT STATES THAT N/V HAS GOTTEN BETTER BUT NOW HE IS HAVING SOME BACK PAIN. PT ALSO REPORTS THAT HE HAD AN EYE PROCEDURE 3 DAYS AGO TO REMOVE BLOOD & SCAR TISSUE FROM L EYE.
[2020-07-05] MEDS ORDERED: SODIUM CHLORIDE FLUSH 10ML SYR IVF ONE (18:00)
[2020-07-05] MEDS ORDERED: ONDANSETRON 2MG/ML, 2ML IVPush ONE (18:00)
[2020-07-05] MEDS ORDERED: DOCU-131 PO (18:05)
[2020-07-05] MEDS ORDERED: PREG150C PO (18:05)
[2020-07-05] MEDS ORDERED: TRAZ50TA66 PO (18:05)
[2020-07-05] MEDS ORDERED: PALI156D IM (18:05)
[2020-07-05] MEDS ORDERED: LISI-170 PO (18:05)
[2020-07-05] MEDS ORDERED: PALI3TAB2 PO (18:05)
[2020-07-05] MEDS ORDERED: AMLO5TAB4 PO (18:05)
[2020-07-05] MEDS ORDERED: TRAM50TA2 PO (18:05)
[2020-07-05] MEDS ORDERED: METH750T2 PO (18:05)
[2020-07-05] MEDS ORDERED: IBUP-1902 PO (18:05)
[2020-07-05] MEDS ORDERED: ERGO500017 PO (18:05)
[2020-07-05] MEDS ORDERED: SERT25TA PO (18:05)
[2020-07-05] MEDS ORDERED: CARV-39 PO (18:05)
[2020-07-05] MEDS ORDERED: PANT40TA3 PO (18:05)
[2020-07-05] MEDS ORDERED: FENO134C PO (18:05)
[2020-07-05] MEDS ORDERED: INSU100I13 SQ (18:05)
[2020-07-05] MEDS ORDERED: ASPI-515 PO (18:05)
[2020-07-05] MEDS ORDERED: HYDROmorphone 2 MG/ML, 1ML ONE (18:08)
[2020-07-05] MEDS ORDERED: ONDANSETRON 2MG/ML, 2ML ONE (18:08)
[2020-07-05] MEDS: HYDROmorphone 2 MG/ML, 1ML IVPush PRN ×2 (18:15→18:45)
--- NOTE | 2020-07-05 18:22 | NUR ---
PT MEDICATED PER DEC. BED IN LOWEST POSITION, CALL LIGHT IN PLACE, AND SIDE RAILS UP. PT EDUCATED TO CALL BEFORE GETTING UP.
[2020-07-05 18:26] LABS: BASOPHILS # (AUTO) 0.04 x10^3/uL (0-0.1); BASOPHILS % (AUTO) 1 % (0-1); EOSINOPHILS # (AUTO) 0.27 x10^3/uL (0-0.4); EOSINOPHILS % (AUTO) 3 % (1-7); LYMPHOCYTES % (AUTO) 26 % (22-44); MD NO; MEAN CORPUSCULAR HEMOGLOBIN 30.5 pg (27.5-34.5); MEAN CORPUSCULAR HGB CONC 33.1 g/dL (33.2-36.2); MEAN CORPUSCULAR VOLUME 92.2 fL (81-97); MEAN PLATELET VOLUME 10.8 fL (7.4-10.4); MONOCYTES # (AUTO) 0.68 x10^3/uL (0.2-0.8); MONOCYTES % (AUTO) 8 % (2-9); NEUTROPHILS % (AUTO) 62 % (42-75); PLATELET COUNT 170 x10^3/uL (130-400); RED BLOOD COUNT 5.27 x10^6/uL (4.38-5.82); RED CELL DISTRIBUTION WIDTH 14.6 % (9.4-14.8)
[2020-07-05 18:36] LABS: ALBUMIN 3.6 g/dL (3.4-5.0); ANION GAP 7 mmol/L (5-15); CALCIUM 9.2 mg/dL (8.5-10.1); CHLORIDE 107 mmol/L (98-107)
[2020-07-05 18:40] LABS: ALANINE AMINOTRANSFERASE 19 U/L (12-78); ALKALINE PHOSPHATASE 55 U/L (45-117); BILIRUBIN,TOTAL 0.5 mg/dL (0.2-1.0); CREATININE 1.84 mg/dL (0.7-1.3); TOTAL PROTEIN 7.6 g/dL (6.4-8.2)
[2020-07-05] MEDS ORDERED: HYDROmorphone 1 MG/ML, 1ML INJ ONE (18:40)
[2020-07-05] MEDS ORDERED: ENALAPRILAT 1.25 MG/ML, 1ML ONE (18:59)
[2020-07-05] MEDS ORDERED: ENALAPRILAT 1.25 MG/ML, 2ML IV ONE (19:00)
[2020-07-05] MEDS ORDERED: SODIUM CHLORIDE 0.9% 1,000ML IVBOLUS ONE (19:00)
[2020-07-05 20:45] VITALS: BP 145/98
== END 2020-07-05 20:43 | disposition home or self-care (01) ==
LOC: ED 18:36
DX: R10.10 Upper abdominal pain, unspecified (principal); I21.9 Acute myocardial infarction, unspecified; I10 Essential (primary) hypertension; E78.5 Hyperlipidemia, unspecified; E11.65 Type 2 diabetes mellitus with hyperglycemia; F17.200 Nicotine dependence, unspecified, uncomplicated; Z90.89 Acquired absence of other organs; Z86.73 Personal history of transient ischemic attack (TIA), and cerebral infarction without residual deficits
CPT/HCPCS: 36415; 80053; 83690; 85025; 93005; 96361; 96374; 96375; 99285; J1170; J2405; J7030

== ENCOUNTER 2020-07-13 14:17 | Emergency (ER) | payer MEDICAID ==
[~2020-07-13] VITALS: Ht 185.4 cm; Wt 125.0 kg
[~2020-07-13 14:17] MED LIST changes: +AMLO5TAB4 PO; +ASPI-515 PO; +CARV-39 PO; +DOCU-131 PO; +ERGO500017 PO; +IBUP-1902 PO; +INSU100I13 SQ; +METH750T2 PO; +PALI156D IM; +PALI3TAB2 PO; +PANT40TA3 PO; +PREG150C PO; +SERT25TA PO; +TRAZ50TA66 PO
--- NOTE | 2020-07-13 14:32 | NUR ---
TASK RN: 45 YR OLD MALE ARRIVED VIA EMS. PER REPORT PT HAD A FALL 2-3 DAYS AGO R/T "BLINDNESS" PT WITH C/O LEFT RIB PAIN, TENDER TO TOUCH. PT STATES "I ALSO HAVE LIVER PAIN" PT INDICATES RIGHT LOWER QUADRANT PAIN. PT IN NO ACUTE DISTRESS. COOPERATIVE WITH CARE. REPORT TO AI SAMAYOA.
--- NOTE | 2020-07-13 14:54 | NUR ---
REPORT RECEIVED FROM DANITA CLOUD. PLAN OF CARE DISCUSSED
[2020-07-13] MEDS ORDERED: ONDANSETRON 2MG/ML, 2ML ONE (14:56)
[2020-07-13] MEDS ORDERED: MORPHINE SULFATE 4 MG/ML, 1ML ONE ×2 (14:57→16:01)
[2020-07-13] MEDS ORDERED: ONDANSETRON 2MG/ML, 2ML IVPush ONE (15:00)
[2020-07-13] MEDS ORDERED: SODIUM CHLORIDE FLUSH 10ML SYR IVF ONE (15:00)
[2020-07-13] MEDS: MORPHINE SULFATE 4 MG/ML, 1ML IVPush PRN ×2 (15:09→16:05)
[2020-07-13 15:30] LABS: BASOPHILS # (AUTO) 0.04 x10^3/uL (0-0.1); BASOPHILS % (AUTO) 1 % (0-1); EOSINOPHILS # (AUTO) 0.19 x10^3/uL (0-0.4); EOSINOPHILS % (AUTO) 2 % (1-7); LYMPHOCYTES # (AUTO) 2.28 x10^3/uL (1-3.4); LYMPHOCYTES % (AUTO) 25 % (22-44); MD NO; MEAN CORPUSCULAR HEMOGLOBIN 30.4 pg (27.5-34.5); MEAN CORPUSCULAR HGB CONC 32.4 g/dL (33.2-36.2); MEAN CORPUSCULAR VOLUME 93.8 fL (81-97); MONOCYTES # (AUTO) 0.73 x10^3/uL (0.2-0.8); MONOCYTES % (AUTO) 8 % (2-9); NEUTROPHILS # (AUTO) 5.78 x10^3/uL (1.8-6.8); NEUTROPHILS % (AUTO) 64 % (42-75); PLATELET COUNT 179 x10^3/uL (130-400); RED BLOOD COUNT 5.43 x10^6/uL (4.38-5.82); RED CELL DISTRIBUTION WIDTH 14.5 % (9.4-14.8)
[2020-07-13 15:37] LABS: ALANINE AMINOTRANSFERASE 18 U/L (12-78); ALBUMIN 3.3 g/dL (3.4-5.0); ANION GAP 7 mmol/L (5-15); CALCIUM 8.7 mg/dL (8.5-10.1); CHLORIDE 105 mmol/L (98-107); CREATININE 1.51 mg/dL (0.7-1.3)
[2020-07-13 15:41] LABS: ALKALINE PHOSPHATASE 49 U/L (45-117); BILIRUBIN,TOTAL 0.4 mg/dL (0.2-1.0); TOTAL PROTEIN 7.1 g/dL (6.4-8.2); TROPONIN I < 0.015 ng/mL (0.000-0.045)
--- NOTE | 2020-07-13 16:09 | NUR ---
PATIENT MEDICATED PER EMAR FOR RECURRENT PAIN. TOLERATED WELL. UA COLLECTED AND SENT
[2020-07-13 16:22] LABS: MICROSCOPIC AUTO
[2020-07-13] MEDS ORDERED: HYDROmorphone 2 MG/ML, 1ML IVPush PRN (16:30)
--- NOTE | 2020-07-13 16:30 | NUR ---
PATIENT IS CONTINUALLY HYPERTENSIVE, STATES HE IS COMPLIANT WITH MEDICATIONS. ER PROVIDER AWARE
[2020-07-13] MEDS ORDERED: HYDROmorphone 1 MG/ML, 1ML INJ ONE (16:32)
--- NOTE | 2020-07-13 16:54 | NUR ---
PATIENT MEDICATED PER EMAR FOR HTN
[2020-07-13] MEDS ORDERED: OMNIPAQUE 350 MG/ML, 100ML BOTTLE ONE (17:00)
--- NOTE | 2020-07-13 17:00 | NUR ---
PATIENT IN CT
[2020-07-13] MEDS ORDERED: hydrALAzine 20 MG/ML, 1ML IV ONE (18:00)
[2020-07-13] MEDS ORDERED: LABETALOL 5MG/ML, 20ML ONE (18:03)
--- NOTE | 2020-07-13 18:10 | NUR ---
PATIENT MEDICATED PER EMAR FOR HTN
[2020-07-13] MEDS ORDERED: LABETALOL 5MG/ML, 20ML IVPush ONE (18:30)
[2020-07-13] MEDS ORDERED: ENALAPRILAT 1.25 MG/ML, 1ML ONE (18:43)
--- NOTE | 2020-07-13 18:51 | NUR ---
PATIENT MEDICATED PER EMAR FOR CONSISTENT HTN
[2020-07-13] MEDS ORDERED: ENALAPRILAT 1.25 MG/ML, 2ML IV ONE (19:00)
[2020-07-13 19:07] VITALS: BP 162/85
--- NOTE | 2020-07-13 19:43 | NUR ---
Patient given discharge instructions and they have confirmed that they understand the instructions. Patient ambulatory with steady gait with walker
== END 2020-07-13 19:45 | disposition home or self-care (01) ==
LOC: ED 14:43
DX: R10.84 Generalized abdominal pain (principal); R07.89 Other chest pain; I10 Essential (primary) hypertension; R11.10 Vomiting, unspecified; R05 Cough; R94.31 Abnormal electrocardiogram [ECG] [EKG]
CPT/HCPCS: 36415; 71045; 74177; 80053; 81001; 84484; 85025; 93005; 96374; 96375; 96376; 99285; J1170; J2270; J2405; Q9967

== ENCOUNTER 2020-07-16 10:42 | Inpatient (IN) | payer MEDICAID ==
[~2020-07-16] VITALS: Ht 177.8 cm; Wt 125.5 kg
--- NOTE | 2020-07-16 10:45 | NUR ---
BIB EMS FROM [facility]. PT WAS LAST SEEN NML SOMETIME LAST NIGHT. [facility] RPTS THEY WERE UNABLE TO ARROUSE PT THIS AM AND CALLED 911. EMS RPTS FSBS = 77 WITH ELEVATED BP 232/129, PT LETHARGIC BUT ARROUSABLE. PT PRESENTS PROFUSELY DIAPHORETIC, LETHARGIC BUT ARROUSABLE AND FOLLOWS COMMANDS X [address] SHANKAR AT BEDSIDE. ASSESSMENT REV AND ORDERS REC'D
[2020-07-16] MEDS ORDERED: ASPIRIN 325 MG TABLET PO STA (10:46)
--- NOTE | 2020-07-16 10:53 | NUR ---
Code cardiac called @1046 Cardiology paged @9524 Code Cardiac cancelled @7110
[2020-07-16] MEDS ORDERED: NALOXONE 1 MG/ML, 2ML ONE (10:56)
[2020-07-16] MEDS ORDERED: NALOXONE 1 MG/ML, 2ML IVPush ONE (11:00)
[2020-07-16] MEDS ORDERED: MORPHINE SULFATE 4 MG/ML, 1ML IVPush PRN (11:00)
--- NOTE | 2020-07-16 11:00 | NUR ---
[facility] called for STAT ECHO and spoke with Leah who states they will send someone down.
[2020-07-16 11:03] LABS: BASOPHILS # (AUTO) 0.09 x10^3/uL (0-0.1); BASOPHILS % (AUTO) 1 % (0-1); EOSINOPHILS # (AUTO) 0.27 x10^3/uL (0-0.4); EOSINOPHILS % (AUTO) 3 % (1-7); LYMPHOCYTES % (AUTO) 25 % (22-44); MD NO; MEAN CORPUSCULAR VOLUME 93.7 fL (81-97); MEAN PLATELET VOLUME 11.1 fL (7.4-10.4); MONOCYTES % (AUTO) 8 % (2-9); NEUTROPHILS # (AUTO) 6.62 x10^3/uL (1.8-6.8); NEUTROPHILS % (AUTO) 64 % (42-75); PLATELET COUNT 205 x10^3/uL (130-400); RED BLOOD COUNT 6.09 x10^6/uL (4.38-5.82); RED CELL DISTRIBUTION WIDTH 14.8 % (9.4-14.8)
[2020-07-16 11:13] LABS: INTERNATIONAL NORMALIZED RATIO 0.97 (0.93-1.1)
[2020-07-16] MEDS ORDERED: DEXTROSE 50%, 50ML SYRINGE ONE (11:13)
[2020-07-16] MEDS ORDERED: METOPROLOL 1 MG/ML, 5ML ONE (11:20)
--- NOTE | 2020-07-16 11:22 | NUR ---
RECTAL TEMP 94.4, BARE HUGGER BLANKET PLACED.
[2020-07-16 11:25] LABS: SALICYLATE LEVEL < 1.7 mg/dL (2.8-20.0)
[2020-07-16 11:28] LABS: TROPONIN I < 0.015 ng/mL (0.000-0.045)
[2020-07-16] MEDS ORDERED: OMNIPAQUE 350 MG/ML, 75ML BOTTLE ONE (11:29)
[2020-07-16] MEDS ORDERED: ASPIRIN 81 MG TABLET CHEW ONE (11:36)
[2020-07-16] MEDS ORDERED: MORPHINE SULFATE 4 MG/ML, 1ML ONE (11:36)
[2020-07-16] MEDS ORDERED: D5%-LACTATED RINGERS 500 ML IV ONE (11:36)
[2020-07-16] MEDS ORDERED: DEXTROSE 50%, 50ML SYRINGE IVPush ONE (12:00)
[2020-07-16] MEDS ORDERED: ASPIRIN 325 MG TABLET PO ONE (12:00)
--- NOTE | 2020-07-16 12:49 | NUR ---
LATE ENTRY FOR 1100, DR AMATO AT BEDSIDE. NO STEMI, AND CODE CARDIAC CANCELLED. PT GIVEN NARCAN NOTED W/O EFFECT. METOPROLOL GIVEN AND NICARDIPINE GTT STARTED. PT C/O EPIGASTRIC CP, RADIATES TO BACK 06/10. PCXR COMPLETED, PT TO CT WITH TIMBER MILL WORKER. CT COMPLETED. LAB RESULTS GLUCOSE = 37, 1 AMP D50 GIVEN WITH EFFECT. PT MORE ALERT AND CONVERSES. PT STATES HE WOKE THIS MORNING TOOK HIS BS = "200 SOMETHING" AND THEN ADMIN HIS INSULIN. HE STATES HE WAS NOT FEELING LIKE EATING AND RTD TO BED.
--- NOTE | 2020-07-16 12:57 | NUR ---
TEMP REMAINS 94.4 RECTAL. JEROME OTOOLE SENT WITH PT TO FLOOR
[2020-07-16] MEDS ORDERED: METOPROLOL 1 MG/ML, 5ML IVPush STA (13:16)
[2020-07-16] MEDS ORDERED: METOPROLOL 1 MG/ML, 5ML IVPush ONE (13:30)
[2020-07-16] MEDS ORDERED: ERGOCALCIFEROL 50,000 UNIT CAPSULE PO SCH (13:30)
[2020-07-16] MEDS ORDERED: D5%-0.45% NACL 1,000 ML IV SCH (13:49)
[2020-07-16] MEDS ORDERED: POLYETHYLENE GLYCOL 17 GM PACKET PO PRN (14:00)
[2020-07-16] MEDS ORDERED: BISACODYL 10 MG SUPP PR PRN (14:00)
[2020-07-16] MEDS ORDERED: PROMETHAZINE 25 MG/ML, 1ML IM PRN (14:00)
[2020-07-16] MEDS ORDERED: DOCUSATE 100 MG CAPSULE PO PRN (14:00)
[2020-07-16] MEDS ORDERED: hydrALAzine 20 MG/ML, 1ML IVPush PRN (14:00)
[2020-07-16] MEDS ORDERED: morphine SULFATE 10 MG/ML, 1ML IVPush PRN (14:00)
[2020-07-16] MEDS ORDERED: LABETALOL 5MG/ML, 20ML IVPush PRN (14:00)
[2020-07-16] MEDS ORDERED: ONDANSETRON ODT 4 MG PO PRN (14:00)
[2020-07-16] MEDS ORDERED: ONDANSETRON 2MG/ML, 2ML IVPush PRN (14:00)
[2020-07-16] MEDS ORDERED: ENOXAPARIN 40 MG/0.4 ML SQ SCH (14:30)
[2020-07-16 14:50] LABS: FREE T4 (FREE THYROXINE) 1.14 ng/dL (0.76-1.46)
[2020-07-16 15:00] VITALS: BP 156/78
[2020-07-16] MEDS: INSULIN LISPRO 100 UNITS/ML, PEN SQ-INSULIN SCH ×2 (15:45→22:19)
[2020-07-16] MEDS: ENOXAPARIN 30 MG/0.3 ML SQ SCH (16:55)
[2020-07-16 17:19] LABS: TROPONIN I < 0.015 ng/mL (0.000-0.045)
[2020-07-16 19:12] VITALS: BP 142/84
[2020-07-16 20:51] LABS: TROPONIN I < 0.015 ng/mL (0.000-0.045)
[2020-07-16] MEDS ORDERED: TRAZODONE 50MG TABLET PO PRN (21:00)
[2020-07-16] MEDS ORDERED: LISINOPRIL 20 MG TABLET PO SCH (21:00)
[2020-07-16] MEDS ORDERED: CARVEDILOL 25 MG TABLET PO SCH (21:00)
[2020-07-16] MEDS: PREGABALIN 150 MG CAPSULE PO SCH (21:43)
[2020-07-17 00:40] VITALS: BP 103/68
[2020-07-17] MEDS: OXYcodone IR 5MG TABLET PO PRN ×3 (04:08→15:45)
[2020-07-17] MEDS: ENOXAPARIN 30 MG/0.3 ML SQ SCH ×2 (05:22→17:03)
[2020-07-17] MEDS: PANTOPRAZOLE 40MG TABLET PO SCH (05:22)
[2020-07-17 05:40] LABS: BASOPHILS # (AUTO) 0.06 x10^3/uL (0-0.1); BASOPHILS % (AUTO) 1 % (0-1); EOSINOPHILS # (AUTO) 0.18 x10^3/uL (0-0.4); EOSINOPHILS % (AUTO) 2 % (1-7); LYMPHOCYTES # (AUTO) 2.62 x10^3/uL (1-3.4); LYMPHOCYTES % (AUTO) 34 % (22-44); MD NO; MEAN CORPUSCULAR HEMOGLOBIN 30.6 pg (27.5-34.5); MEAN CORPUSCULAR HGB CONC 32.9 g/dL (33.2-36.2); MEAN CORPUSCULAR VOLUME 93.3 fL (81-97); MEAN PLATELET VOLUME 11.2 fL (7.4-10.4); MONOCYTES # (AUTO) 0.65 x10^3/uL (0.2-0.8); MONOCYTES % (AUTO) 9 % (2-9); NEUTROPHILS # (AUTO) 4.13 x10^3/uL (1.8-6.8); NEUTROPHILS % (AUTO) 54 % (42-75); PLATELET COUNT 172 x10^3/uL (130-400); RED BLOOD COUNT 4.79 x10^6/uL (4.38-5.82); RED CELL DISTRIBUTION WIDTH 14.6 % (9.4-14.8)
[2020-07-17 05:42] LABS: ALANINE AMINOTRANSFERASE 13 U/L (12-78); ANION GAP 7 mmol/L (5-15); CALCIUM 8.5 mg/dL (8.5-10.1); CHLORIDE 104 mmol/L (98-107); CHOLESTEROL, TOTAL 148 mg/dL (140-239); CREATININE 2.11 mg/dL (0.7-1.3)
[2020-07-17 05:43] LABS: MICROSCOPIC AUTO
[2020-07-17 05:44] LABS: ALKALINE PHOSPHATASE 42 U/L (45-117); BILIRUBIN,TOTAL 0.4 mg/dL (0.2-1.0); CHOL/HDL RATIO 3.5; HDL CHOL % 28 % (26-37); HDL CHOLESTEROL (DIRECT) 42 mg/dL (40-60); LDL CHOLESTEROL,CALCULATED 82 mg/dL (54-169); TRIGLYCERIDES 121 mg/dL (50-200); VLDL CHOLESTEROL 24 mg/dL (0-25)
[2020-07-17 06:02] LABS: AMPHETAMINE SCREEN, URINE Negative (Negative); BARBITURATE SCREEN, URINE Negative (Negative); BENZODIAZEPINE SCREEN, URINE Negative (Negative); CANNABINOID SCREEN, URINE Negative (Negative); COCAINE SCREEN, URINE Negative (Negative); METHADONE SCREEN, URINE Negative (Negative); OPIATE SCREEN, URINE Positive (Negative)
[2020-07-17 07:25] VITALS: BP 94/62
[2020-07-17] MEDS: SERTRALINE 50MG TABLET PO SCH (08:06)
[2020-07-17] MEDS: ASPIRIN 81 MG TABLET EC PO SCH (08:06)
[2020-07-17] MEDS: CARVEDILOL 12.5 MG TABLET PO SCH ×2 (08:06→21:12)
[2020-07-17] MEDS: PREGABALIN 150 MG CAPSULE PO SCH ×2 (08:06→21:11)
[2020-07-17] MEDS: DOCUSATE 100 MG CAPSULE PO SCH (08:07)
[2020-07-17] MEDS: INSULIN LISPRO 100 UNITS/ML, PEN SQ-INSULIN SCH ×4 (08:08→21:13)
[2020-07-17] MEDS ORDERED: LISINOPRIL 20 MG TABLET PO SCH (09:00)
[2020-07-17] MEDS ORDERED: AMLODIPINE 5 MG TABLET PO SCH (09:00)
[2020-07-17] MEDS ORDERED: SODIUM CHLORIDE 0.9% 1,000 ML IV SCH (11:30)
[2020-07-17] MEDS: SODIUM CHLORIDE 0.9% 1,000 ML IV SCH ×2 (11:30→20:18)
[2020-07-17 12:06] VITALS: BP 102/69
[2020-07-17 20:11] VITALS: BP 145/81
[2020-07-17] MEDS ORDERED: FENOFIBRATE 145 MG TABLET PO SCH (21:00)
[2020-07-18 01:12] VITALS: BP 129/73
[2020-07-18] MEDS: PANTOPRAZOLE 40MG TABLET PO SCH (05:17)
[2020-07-18] MEDS: OXYcodone IR 5MG TABLET PO PRN (05:17)
[2020-07-18] MEDS: ENOXAPARIN 30 MG/0.3 ML SQ SCH (05:18)
[2020-07-18 05:37] LABS: CHLORIDE 108 mmol/L (98-107)
[2020-07-18 05:42] LABS: ANION GAP 7 mmol/L (5-15); CALCIUM 8.2 mg/dL (8.5-10.1); CREATININE 2.21 mg/dL (0.7-1.3)
[2020-07-18 06:23] VITALS: BP 121/69
[2020-07-18] MEDS: INSULIN LISPRO 100 UNITS/ML, PEN SQ-INSULIN SCH ×3 (06:56→16:00)
[2020-07-18] MEDS: SODIUM CHLORIDE 0.9% 1,000 ML IV SCH (07:30)
[2020-07-18] MEDS: ASPIRIN 81 MG TABLET EC PO SCH (08:39)
[2020-07-18] MEDS: CARVEDILOL 12.5 MG TABLET PO SCH (08:41)
[2020-07-18] MEDS: DOCUSATE 100 MG CAPSULE PO SCH (08:42)
[2020-07-18] MEDS: SERTRALINE 50MG TABLET PO SCH (08:42)
[2020-07-18] MEDS: PREGABALIN 150 MG CAPSULE PO SCH (08:44)
[2020-07-18] MEDS ORDERED: OXYcodone IR 5MG TABLET PO PRN (10:00)
[2020-07-18 10:34] LABS: MEAN CORPUSCULAR HEMOGLOBIN 30.4 pg (27.5-34.5); MEAN CORPUSCULAR HGB CONC 32.3 g/dL (33.2-36.2); MEAN CORPUSCULAR VOLUME 94.1 fL (81-97); MEAN PLATELET VOLUME 11.5 fL (7.4-10.4); PLATELET COUNT 161 x10^3/uL (130-400); RED BLOOD COUNT 4.85 x10^6/uL (4.38-5.82); RED CELL DISTRIBUTION WIDTH 14.5 % (9.4-14.8)
[2020-07-18 10:40] LABS: BASOPHILS # (AUTO) 0.08 x10^3/uL (0-0.1); BASOPHILS % (AUTO) 1 % (0-1); EOSINOPHILS # (AUTO) 0.21 x10^3/uL (0-0.4); EOSINOPHILS % (AUTO) 2 % (1-7); LYMPHOCYTES # (AUTO) 3.38 x10^3/uL (1-3.4); LYMPHOCYTES % (AUTO) 39 % (22-44); MD NO; MONOCYTES # (AUTO) 0.61 x10^3/uL (0.2-0.8); MONOCYTES % (AUTO) 7 % (2-9); NEUTROPHILS # (AUTO) 4.34 x10^3/uL (1.8-6.8); NEUTROPHILS % (AUTO) 50 % (42-75)
[2020-07-18 12:21] VITALS: BP 157/81
[2020-07-18] MEDS ORDERED: HYDR-3341 PO (13:16)
== END 2020-07-18 17:13 | disposition home or self-care (01) | DRG 637 ==
LOC: ED 11:55 → EDIP 12:24 → 5SO 12:53
PROVIDERS: ADMIT Family Medicine; ATTEND Internal Medicine
DX: E11.649 Type 2 diabetes mellitus with hypoglycemia without coma (principal); G93.41 Metabolic encephalopathy; I16.1 Hypertensive emergency; K86.1 Other chronic pancreatitis; D75.1 Secondary polycythemia; E11.319 Type 2 diabetes mellitus with unspecified diabetic retinopathy without macular edema; E11.40 Type 2 diabetes mellitus with diabetic neuropathy, unspecified; N18.3 Chronic kidney disease, stage 3 (moderate); I12.9 Hypertensive chronic kidney disease with stage 1 through stage 4 chronic kidney disease, or unspecified chronic kidney disease; H54.40 Blindness, one eye, unspecified eye; F43.10 Post-traumatic stress disorder, unspecified; F32.9 Major depressive disorder, single episode, unspecified; F25.9 Schizoaffective disorder, unspecified; F17.210 Nicotine dependence, cigarettes, uncomplicated; E66.01 Morbid (severe) obesity due to excess calories; E11.39 Type 2 diabetes mellitus with other diabetic ophthalmic complication; E78.5 Hyperlipidemia, unspecified; E11.22 Type 2 diabetes mellitus with diabetic chronic kidney disease; I16.0 Hypertensive urgency; Z86.73 Personal history of transient ischemic attack (TIA), and cerebral infarction without residual deficits; Z68.39 Body mass index [BMI] 39.0-39.9, adult; Z88.8 Allergy status to other drugs, medicaments and biological substances
CPT/HCPCS: 36415; 83036; J7121; 70450; 71045; 71275; 74175; 80047; 80048; 80053; 80061; 80307; 81001; 82140; 82962; 83690; 83735; 84100; 84439; 84443; 84484; 85025; 85610; 85730; 93005; 93306; G0378; J1650; Q9967; J1815; J2270; J2310; J7030; J7050

== ENCOUNTER 2020-07-22 15:36 | Emergency (ER) | payer MEDICAID ==
[~2020-07-22] VITALS: Ht 185.4 cm; Wt 124.0 kg
--- NOTE | 2020-07-22 15:54 | NUR ---
Bib by nino from home for epigastric pain/nausea/dizziness"these are all symptoms I've had since I left here last time when y'all told me my kidney were having a hard time." -took home anthypertensives this am
[2020-07-22] MEDS ORDERED: SODIUM CHLORIDE FLUSH 10ML SYR IVF ONE (17:00)
[2020-07-22] MEDS ORDERED: ONDANSETRON 2MG/ML, 2ML IVPush ONE (17:00)
[2020-07-22 17:30] LABS: BASOPHILS # (AUTO) 0.04 x10^3/uL (0-0.1); BASOPHILS % (AUTO) 0 % (0-1); EOSINOPHILS # (AUTO) 0.22 x10^3/uL (0-0.4); EOSINOPHILS % (AUTO) 3 % (1-7); LYMPHOCYTES # (AUTO) 2.35 x10^3/uL (1-3.4); LYMPHOCYTES % (AUTO) 27 % (22-44); MD NO; MEAN CORPUSCULAR HEMOGLOBIN 30.8 pg (27.5-34.5); MEAN CORPUSCULAR HGB CONC 33.2 g/dL (33.2-36.2); MEAN CORPUSCULAR VOLUME 92.7 fL (81-97); MEAN PLATELET VOLUME 11.2 fL (7.4-10.4); MONOCYTES # (AUTO) 0.73 x10^3/uL (0.2-0.8); MONOCYTES % (AUTO) 8 % (2-9); NEUTROPHILS % (AUTO) 62 % (42-75); PLATELET COUNT 164 x10^3/uL (130-400); RED BLOOD COUNT 5.32 x10^6/uL (4.38-5.82); RED CELL DISTRIBUTION WIDTH 14.3 % (9.4-14.8)
[2020-07-22 17:42] LABS: ALANINE AMINOTRANSFERASE 21 U/L (12-78); ALBUMIN 3.5 g/dL (3.4-5.0); ANION GAP 8 mmol/L (5-15); CALCIUM 8.9 mg/dL (8.5-10.1); CHLORIDE 105 mmol/L (98-107); CREATININE 1.65 mg/dL (0.7-1.3)
[2020-07-22 17:45] VITALS: BP 157/72
[2020-07-22 17:45] LABS: ALKALINE PHOSPHATASE 57 U/L (45-117); BILIRUBIN,TOTAL 0.3 mg/dL (0.2-1.0); TOTAL PROTEIN 7.1 g/dL (6.4-8.2)
== END 2020-07-22 18:15 | disposition home or self-care (01) ==
LOC: ED 16:52
DX: R68.83 Chills (without fever) (principal); I10 Essential (primary) hypertension; E11.9 Type 2 diabetes mellitus without complications; Z86.73 Personal history of transient ischemic attack (TIA), and cerebral infarction without residual deficits
CPT/HCPCS: 36415; 71045; 80053; 83605; 85025; 87040; 93005; 99285

== ENCOUNTER 2020-09-23 20:25 | Emergency (ER) | payer MEDICAID ==
[~2020-09-23] VITALS: Ht 154.9 cm; Wt 129.0 kg
[~2020-09-23 20:25] MED LIST changes: +AMLO-210 PO; -AMLO5TAB10 PO
--- NOTE | 2020-09-23 20:25 | NUR ---
BIB [facility] FROM [facility] FOR CO STABBING LUQ/EPIGASTRIC PAIN X SEVERAL HOURS. HX OF PANCREATITIS. PT REPORTS THIS FEELS SIMILAR. DENIES HEMATEMESIS/CHEST PAIN. GIVEN 100MCG FENTANYL SOLAR INSTALLATION HELPER WITH LITTLE EFFECT. BP/SPO2/ECG MONITORING IN PLACE. NSR ON MONITOR. EKG COMPLETED UPON ARRIVAL
[2020-09-23] MEDS ORDERED: HYDROmorphone 1 MG/ML, 1ML INJ ONE ×2 (21:45→22:43)
[2020-09-23] MEDS ORDERED: ONDANSETRON 2MG/ML, 2ML ONE (21:45)
[2020-09-23] MEDS: HYDROmorphone 2 MG/ML, 1ML IVPush PRN ×2 (21:48→22:46)
--- NOTE | 2020-09-23 21:53 | NUR ---
PT MEDICATED PER EMAR FOR 9/10 ABD PAIN AND NAUSEA. PT UPDATED TO POC (LAB/CT, RESULTS, RECHECK) AND DEMONSTRATES UNDERSTANDING.
[2020-09-23] MEDS ORDERED: SODIUM CHLORIDE FLUSH 10ML SYR IVF ONE (22:00)
[2020-09-23] MEDS ORDERED: ONDANSETRON 2MG/ML, 2ML IVPush ONE (22:00)
[2020-09-23] MEDS ORDERED: SODIUM CHLORIDE 0.9% 1,000ML IVBOLUS ONE (22:00)
[2020-09-23 22:30] LABS: BASOPHILS % (AUTO) 1 % (0-1); EOSINOPHILS % (AUTO) 5 % (1-7); LYMPHOCYTES % (AUTO) 25 % (22-44); MEAN CORPUSCULAR HEMOGLOBIN 30.8 pg (27.5-34.5); MEAN CORPUSCULAR HGB CONC 33.4 g/dL (33.2-36.2); MONOCYTES % (AUTO) 7 % (2-9); NEUTROPHILS % (AUTO) 63 % (42-75); PLATELET COUNT 149 x10^3/uL (130-400); RED BLOOD COUNT 4.45 x10^6/uL (4.38-5.82); RED CELL DISTRIBUTION WIDTH 14.2 % (9.4-14.8)
[2020-09-23 22:32] LABS: MD NO
[2020-09-23 22:39] LABS: ALANINE AMINOTRANSFERASE 22 U/L (12-78); ALBUMIN 3.1 g/dL (3.4-5.0); ANION GAP 3 mmol/L (5-15); CALCIUM 8.2 mg/dL (8.5-10.1); CHLORIDE 105 mmol/L (98-107); CREATININE 1.91 mg/dL (0.7-1.3)
[2020-09-23 22:41] LABS: ALKALINE PHOSPHATASE 63 U/L (45-117); BILIRUBIN,TOTAL 0.2 mg/dL (0.2-1.0); TOTAL PROTEIN 6.5 g/dL (6.4-8.2)
--- NOTE | 2020-09-23 22:49 | NUR ---
PT MEDICATED PER EMAR FOR CONTINUED PAIN, 07/11. AWAITING CT
--- NOTE | 2020-09-23 22:51 | NUR ---
CT delay-elevated creatine value. unable to reach RN or DR. Ramírez
--- NOTE | 2020-09-23 23:49 | NUR ---
PT REQUESTING PAIN MEDS. ERP AWARE. AWAITING ORDERS.
[2020-09-24 00:37] VITALS: BP 158/65
--- NOTE | 2020-09-24 01:04 | NUR ---
PT A&OX4. PT REQUESTED A TAXI HOME. VOUCHER GIVEN. VS STABLE. PT DISCHARGED PER DR SHANKAR.
== END 2020-09-24 01:05 ==
LOC: ED 21:19
DX: K85.30 Drug induced acute pancreatitis without necrosis or infection (principal); R94.31 Abnormal electrocardiogram [ECG] [EKG]; E11.65 Type 2 diabetes mellitus with hyperglycemia; I10 Essential (primary) hypertension; E78.5 Hyperlipidemia, unspecified; F17.200 Nicotine dependence, unspecified, uncomplicated; Z86.73 Personal history of transient ischemic attack (TIA), and cerebral infarction without residual deficits; Z90.89 Acquired absence of other organs
CPT/HCPCS: 36415; 74176; 80053; 83605; 83690; 85025; 93005; 96361; 96374; 96375; 96376; 99285; J1170; J2405; J7030

== ENCOUNTER 2020-09-25 15:07 | Emergency (ER) | payer MEDICAID ==
[~2020-09-25] VITALS: Ht 185.4 cm; Wt 90.0 kg
--- NOTE | 2020-09-25 15:15 | NUR ---
PT BROUGHT IN BY BENJAMIN FROM [facility] FOR SI.
[2020-09-25 15:16] VITALS: BP 146/99
--- NOTE | 2020-09-25 15:21 | NUR ---
SAFETY PRECAUTIONS IN PLACE. BELONINGS BAGS X2 PLACED IN LOCKER
[2020-09-25] MEDS ORDERED: TRAZODONE 100MG TABLET PO PRN (16:00)
[2020-09-25] MEDS ORDERED: PALIPERIDONE PALMITATE 234 MG/1.5 ML IM ONE (16:00)
[2020-09-25 16:09] LABS: BASOPHILS % (AUTO) 1 % (0-1); EOSINOPHILS % (AUTO) 4 % (1-7); LYMPHOCYTES % (AUTO) 30 % (22-44); MEAN CORPUSCULAR HEMOGLOBIN 30.8 pg (27.5-34.5); MEAN CORPUSCULAR HGB CONC 33.3 g/dL (33.2-36.2); MEAN PLATELET VOLUME 10.6 fL (7.4-10.4); MONOCYTES % (AUTO) 7 % (2-9); NEUTROPHILS % (AUTO) 57 % (42-75); PLATELET COUNT 152 x10^3/uL (130-400); RED BLOOD COUNT 4.61 x10^6/uL (4.38-5.82); RED CELL DISTRIBUTION WIDTH 14.2 % (9.4-14.8)
[2020-09-25 16:14] LABS: MD NO
[2020-09-25 16:17] LABS: ALANINE AMINOTRANSFERASE 19 U/L (12-78); ALBUMIN 3.5 g/dL (3.4-5.0); ANION GAP 8 mmol/L (5-15); CALCIUM 8.8 mg/dL (8.5-10.1); CHLORIDE 106 mmol/L (98-107); CREATININE 1.57 mg/dL (0.7-1.3)
[2020-09-25 16:22] LABS: ALKALINE PHOSPHATASE 63 U/L (45-117); BILIRUBIN,TOTAL 0.4 mg/dL (0.2-1.0); TOTAL PROTEIN 7.2 g/dL (6.4-8.2)
[2020-09-25 16:23] LABS: SALICYLATE LEVEL < 1.7 mg/dL (2.8-20.0)
--- NOTE | 2020-09-25 17:47 | NUR ---
PHARMACY NOTE SENT FOR INVEGA
[2020-09-25 17:49] LABS: AMPHETAMINE SCREEN, URINE Negative (Negative); BARBITURATE SCREEN, URINE Negative (Negative); BENZODIAZEPINE SCREEN, URINE Negative (Negative); CANNABINOID SCREEN, URINE Negative (Negative); COCAINE SCREEN, URINE Negative (Negative); METHADONE SCREEN, URINE Negative (Negative); OPIATE SCREEN, URINE Negative (Negative)
--- NOTE | 2020-09-25 18:06 | NUR ---
PT C/O PANCREAS PAIN. DR LORENZANA ADVISED.
--- NOTE | 2020-09-25 18:22 | NUR ---
REPORT GIVEN TO DANITA ORDOÑEZ
[2020-09-26] MEDS ORDERED: PALIPERIDONE 3 MG TAB.ER.24 PO SCH (09:00)
[2020-09-26] MEDS ORDERED: SERTRALINE 100MG TABLET PO SCH (09:00)
== END 2020-09-25 19:13 ==
LOC: ED 15:43
DX: F33.9 Major depressive disorder, recurrent, unspecified (principal); Z20.828 Contact with and (suspected) exposure to other viral communicable diseases; R45.851 Suicidal ideations; E11.22 Type 2 diabetes mellitus with diabetic chronic kidney disease; I12.9 Hypertensive chronic kidney disease with stage 1 through stage 4 chronic kidney disease, or unspecified chronic kidney disease; N18.9 Chronic kidney disease, unspecified; F17.200 Nicotine dependence, unspecified, uncomplicated; F25.9 Schizoaffective disorder, unspecified; Z86.73 Personal history of transient ischemic attack (TIA), and cerebral infarction without residual deficits
CPT/HCPCS: 36415; 80053; 80299; 80307; 80320; 80329; 85025; 87635; 93005; 99285; G0480

== ENCOUNTER 2020-09-25 16:23 | Inpatient (IN) | payer MEDICAID ==
[~2020-09-25] VITALS: Ht 182.9 cm; Wt 130.2 kg
[2020-09-25] MEDS ORDERED: DOCUSATE 100 MG CAPSULE PO PRN (16:30)
[2020-09-25] MEDS ORDERED: ONDANSETRON ODT 4 MG PO PRN (16:30)
[2020-09-25] MEDS ORDERED: BISACODYL 10 MG SUPP PR PRN (16:30)
[2020-09-25] MEDS ORDERED: POLYETHYLENE GLYCOL 17 GM PACKET PO PRN (16:30)
[2020-09-25] MEDS ORDERED: PLEASE ENTER HEIGHT AND WEIGHT MC SCH (19:30)
[2020-09-25 19:39] VITALS: BP 167/99
[2020-09-25] MEDS: PREGABALIN 150 MG CAPSULE PO SCH (22:12)
[2020-09-25] MEDS: CARVEDILOL 25 MG TABLET PO SCH (22:13)
[2020-09-25] MEDS: METHOCARBAMOL 750 MG TABLET PO SCH (22:13)
[2020-09-25] MEDS: LISINOPRIL 20 MG TABLET PO SCH (22:13)
[2020-09-25] MEDS: INSULIN GLARGINE 100 UNITS/ML, PEN SQ-INSULIN SCH ×2 (22:14→23:50)
[2020-09-25] MEDS ORDERED: TRAZODONE 50MG TABLET ONE (22:16)
[2020-09-25] MEDS: TRAZODONE 100MG TABLET PO PRN (22:21)
[2020-09-25 22:42] VITALS: BP 149/93
[2020-09-25] MEDS ORDERED: FLU VACC QS2020-21(6MOS UP)/PF 60MCG/0.5 ML SYR IM-VACC ONE (23:30)
[2020-09-26 06:07] LABS: CHOL/HDL RATIO 3.2; LDL/HDL RATIO 1.4 (0.5-3.0)
[2020-09-26] MEDS: PANTOPRAZOLE 40MG TABLET PO SCH (06:17)
[2020-09-26 06:58] VITALS: BP 136/82
[2020-09-26] MEDS: METHOCARBAMOL 750 MG TABLET PO SCH ×3 (08:47→20:13)
[2020-09-26] MEDS: PREGABALIN 150 MG CAPSULE PO SCH ×2 (08:47→20:14)
[2020-09-26] MEDS: ASPIRIN 81 MG TABLET CHEW PO SCH (08:48)
[2020-09-26] MEDS: LISINOPRIL 20 MG TABLET PO SCH ×2 (08:49→20:14)
[2020-09-26] MEDS: NICOTINE 14MG/24 HR PATCH.TD24 TD SCH (08:49)
[2020-09-26] MEDS ORDERED: AMLODIPINE 5 MG TABLET PO ONE (09:00)
[2020-09-26] MEDS ORDERED: FLU VACC QS2020-21(6MOS UP)/PF 60MCG/0.5 ML SYR IM-VACC ONE (09:00)
[2020-09-26] MEDS ORDERED: SERTRALINE 50MG TABLET PO SCH (09:00)
[2020-09-26] MEDS ORDERED: PALIPERIDONE 3 MG TAB.ER.24 PO SCH (09:00)
[2020-09-26] MEDS: PANCRELIPASE 24,000 CAPSULE.DR PO SCH ×2 (16:18→20:14)
[2020-09-26] MEDS: OXYcodone IR 5MG TABLET PO PRN (16:21)
[2020-09-26 18:03] VITALS: BP 128/90
[2020-09-26] MEDS: CARVEDILOL 25 MG TABLET PO SCH (18:08)
[2020-09-26 19:00] VITALS: BP 179/100
[2020-09-26] MEDS: TRAZODONE 100MG TABLET PO PRN (20:14)
[2020-09-26] MEDS: INSULIN GLARGINE 100 UNITS/ML, PEN SQ-INSULIN SCH (20:55)
[2020-09-26 23:54] VITALS: BP 123/82
[2020-09-27] MEDS: PANTOPRAZOLE 40MG TABLET PO SCH (06:08)
[2020-09-27] MEDS: CARVEDILOL 25 MG TABLET PO SCH ×2 (06:08→17:46)
[2020-09-27] MEDS: OXYcodone IR 5MG TABLET PO PRN ×2 (06:09→15:19)
[2020-09-27 07:21] VITALS: BP 120/79
[2020-09-27] MEDS ORDERED: ERGOCALCIFEROL 50,000 UNIT CAPSULE PO SCH (09:00)
[2020-09-27] MEDS: PALIPERIDONE 3 MG TAB.ER.24 PO SCH (09:11)
[2020-09-27] MEDS: METHOCARBAMOL 750 MG TABLET PO SCH ×3 (09:12→20:16)
[2020-09-27] MEDS: PREGABALIN 150 MG CAPSULE PO SCH ×2 (09:12→20:17)
[2020-09-27] MEDS: ASPIRIN 81 MG TABLET CHEW PO SCH (09:12)
[2020-09-27] MEDS: PANCRELIPASE 24,000 CAPSULE.DR PO SCH ×3 (09:12→20:16)
[2020-09-27] MEDS: LISINOPRIL 20 MG TABLET PO SCH ×2 (09:12→20:17)
[2020-09-27] MEDS: SERTRALINE 50MG TABLET PO SCH (09:13)
[2020-09-27] MEDS: NICOTINE 14MG/24 HR PATCH.TD24 TD SCH (09:14)
[2020-09-27] MEDS ORDERED: HYDROXYZINE PAMOATE 50MG CAP PO PRN (11:00)
[2020-09-27 14:44] LABS: MICROSCOPIC AUTO
[2020-09-27 15:17] VITALS: BP 126/79
[2020-09-27 19:15] VITALS: BP 119/76
[2020-09-27] MEDS: INSULIN GLARGINE 100 UNITS/ML, PEN SQ-INSULIN SCH (20:19)
[2020-09-28] MEDS: PANTOPRAZOLE 40MG TABLET PO SCH (05:55)
[2020-09-28] MEDS: CARVEDILOL 25 MG TABLET PO SCH ×2 (05:55→16:45)
[2020-09-28 07:00] VITALS: BP 121/82
[2020-09-28] MEDS: SERTRALINE 50MG TABLET PO SCH (08:16)
[2020-09-28] MEDS: PREGABALIN 150 MG CAPSULE PO SCH ×2 (08:16→20:17)
[2020-09-28] MEDS: PALIPERIDONE 3 MG TAB.ER.24 PO SCH (08:16)
[2020-09-28] MEDS: LISINOPRIL 20 MG TABLET PO SCH ×2 (08:16→20:18)
[2020-09-28] MEDS: ASPIRIN 81 MG TABLET CHEW PO SCH (08:16)
[2020-09-28] MEDS: METHOCARBAMOL 750 MG TABLET PO SCH ×3 (08:17→20:18)
[2020-09-28] MEDS: OXYcodone IR 5MG TABLET PO PRN ×2 (08:17→16:52)
[2020-09-28] MEDS: NICOTINE 14MG/24 HR PATCH.TD24 TD SCH (08:17)
[2020-09-28] MEDS: PANCRELIPASE 24,000 CAPSULE.DR PO SCH ×3 (08:33→20:18)
[2020-09-28 16:00] VITALS: BP 154/88
[2020-09-28 19:44] VITALS: BP 134/79
[2020-09-28] MEDS: TRAZODONE 100MG TABLET PO PRN (20:18)
[2020-09-28] MEDS: INSULIN GLARGINE 100 UNITS/ML, PEN SQ-INSULIN SCH (20:19)
[2020-09-29] MEDS: CARVEDILOL 25 MG TABLET PO SCH ×2 (06:32→17:45)
[2020-09-29] MEDS: PANTOPRAZOLE 40MG TABLET PO SCH (06:32)
[2020-09-29 07:24] VITALS: BP 128/83
[2020-09-29] MEDS: PALIPERIDONE 3 MG TAB.ER.24 PO SCH (08:55)
[2020-09-29] MEDS: PANCRELIPASE 24,000 CAPSULE.DR PO SCH ×3 (08:55→20:10)
[2020-09-29] MEDS: PREGABALIN 150 MG CAPSULE PO SCH ×2 (08:55→20:10)
[2020-09-29] MEDS: ASPIRIN 81 MG TABLET CHEW PO SCH (08:55)
[2020-09-29] MEDS: SERTRALINE 50MG TABLET PO SCH (08:56)
[2020-09-29] MEDS: METHOCARBAMOL 750 MG TABLET PO SCH ×3 (08:56→20:10)
[2020-09-29] MEDS: LISINOPRIL 20 MG TABLET PO SCH ×2 (08:56→20:10)
[2020-09-29] MEDS: NICOTINE 14MG/24 HR PATCH.TD24 TD SCH (08:57)
[2020-09-29] MEDS: OXYcodone IR 5MG TABLET PO PRN ×2 (09:05→15:31)
[2020-09-29] MEDS ORDERED: SERT50TA28 PO (11:16)
[2020-09-29] MEDS ORDERED: NICO-486 TD (11:16)
[2020-09-29] MEDS ORDERED: PALI3TAB11 PO (11:16)
[2020-09-29 15:28] VITALS: BP 154/94
[2020-09-29 20:00] VITALS: BP 135/79
[2020-09-29] MEDS: TRAZODONE 100MG TABLET PO PRN (20:10)
[2020-09-29] MEDS: INSULIN GLARGINE 100 UNITS/ML, PEN SQ-INSULIN SCH (20:12)
[2020-09-30] MEDS: PANTOPRAZOLE 40MG TABLET PO SCH (06:13)
[2020-09-30] MEDS: CARVEDILOL 25 MG TABLET PO SCH (06:14)
[2020-09-30 07:24] VITALS: BP 127/86
[2020-09-30] MEDS: NICOTINE 14MG/24 HR PATCH.TD24 TD SCH (08:19)
[2020-09-30] MEDS: METHOCARBAMOL 750 MG TABLET PO SCH (08:20)
[2020-09-30] MEDS: PANCRELIPASE 24,000 CAPSULE.DR PO SCH (08:20)
[2020-09-30] MEDS: PREGABALIN 150 MG CAPSULE PO SCH (08:20)
[2020-09-30] MEDS: PALIPERIDONE 3 MG TAB.ER.24 PO SCH (08:20)
[2020-09-30] MEDS: ASPIRIN 81 MG TABLET CHEW PO SCH (08:20)
[2020-09-30] MEDS: LISINOPRIL 20 MG TABLET PO SCH (08:20)
[2020-09-30] MEDS ORDERED: SERTRALINE 100MG TABLET PO SCH ×2 (09:09→09:43)
[2020-09-30] MEDS: OXYcodone IR 5MG TABLET PO PRN (09:52)
== END 2020-09-30 12:40 | disposition home or self-care (01) | DRG 885 ==
LOC: 3E 19:06
PROVIDERS: ADMIT Psychiatry & Neurology Psychosomatic Medicine; ATTEND Psychiatry & Neurology Psychosomatic Medicine
DX: F25.0 Schizoaffective disorder, bipolar type (principal); R45.851 Suicidal ideations; E66.9 Obesity, unspecified; F41.9 Anxiety disorder, unspecified; H54.8 Legal blindness, as defined in USA; I10 Essential (primary) hypertension; K21.9 Gastro-esophageal reflux disease without esophagitis; K59.00 Constipation, unspecified; F17.210 Nicotine dependence, cigarettes, uncomplicated; E11.9 Type 2 diabetes mellitus without complications; Z79.82 Long term (current) use of aspirin; Z79.899 Other long term (current) drug therapy; Z86.73 Personal history of transient ischemic attack (TIA), and cerebral infarction without residual deficits; Z79.4 Long term (current) use of insulin; Z82.49 Family history of ischemic heart disease and other diseases of the circulatory system; Z83.3 Family history of diabetes mellitus; Z82.5 Family history of asthma and other chronic lower respiratory diseases; Z88.1 Allergy status to other antibiotic agents; Z88.5 Allergy status to narcotic agent; Z56.0 Unemployment, unspecified; Z23 Encounter for immunization; Z68.38 Body mass index [BMI] 38.0-38.9, adult
CPT/HCPCS: 36415; 80061; 81001; 82962; 90686; Q0162; J1815

== ENCOUNTER 2020-10-12 09:14 | Emergency (ER) | payer MEDICAID ==
[~2020-10-12] VITALS: Ht 185.4 cm; Wt 124.0 kg
[~2020-10-12 09:14] MED LIST changes: -CLIN300C8 PO; +CLIN300C9 PO; +NICO-486 TD
[2020-10-12] MEDS ORDERED: PLEASE ENTER HEIGHT AND WEIGHT MC SCH (11:00)
[2020-10-12] MEDS ORDERED: ONDANSETRON 2MG/ML, 2ML IVPush ONE (11:00)
[2020-10-12] MEDS ORDERED: SODIUM CHLORIDE 0.9% 1,000 ML IV ONE (11:00)
[2020-10-12] MEDS ORDERED: SODIUM CHLORIDE FLUSH 10ML SYR IVF ONE (11:00)
[2020-10-12 11:11] LABS: BASOPHILS % (AUTO) 1 % (0-1); EOSINOPHILS % (AUTO) 1 % (1-7); LYMPHOCYTES % (AUTO) 10 % (22-44); MEAN CORPUSCULAR HGB CONC 33.1 g/dL (33.2-36.2); MEAN PLATELET VOLUME 11.7 fL (7.4-10.4); MONOCYTES % (AUTO) 7 % (2-9); NEUTROPHILS % (AUTO) 82 % (42-75); PLATELET COUNT 156 x10^3/uL (130-400); RED CELL DISTRIBUTION WIDTH 14.4 % (9.4-14.8)
[2020-10-12 11:15] LABS: MD NO
[2020-10-12 11:22] LABS: ALANINE AMINOTRANSFERASE 21 U/L (12-78); ALBUMIN 3.6 g/dL (3.4-5.0); ANION GAP 5 mmol/L (5-15); CALCIUM 8.4 mg/dL (8.5-10.1); CHLORIDE 108 mmol/L (98-107); CREATININE 2.49 mg/dL (0.7-1.3)
[2020-10-12 11:24] LABS: ALKALINE PHOSPHATASE 63 U/L (45-117); BILIRUBIN,TOTAL 0.3 mg/dL (0.2-1.0); TOTAL PROTEIN 7.2 g/dL (6.4-8.2)
[2020-10-12] MEDS ORDERED: MORPHINE SULFATE 4 MG/ML, 1ML ONE ×2 (11:32→12:18)
[2020-10-12] MEDS ORDERED: ONDANSETRON 2MG/ML, 2ML ONE (11:32)
[2020-10-12] MEDS: MORPHINE SULFATE 4 MG/ML, 1ML IVPush PRN ×2 (11:37→13:19)
--- NOTE | 2020-10-12 12:57 | NUR ---
RECEIVED REPORT FROM JOEY SAMAYOA. ASSUMING CARE AT THIS TIME.
--- NOTE | 2020-10-12 13:16 | NUR ---
PT STATES UNABLE TO PRODUCE URINE, STATING STRAIGHT CATH OK. NOTIFIED, RECEIVED N/O FOR UA STRAIGHT CATH. URINE COLLECTED VIA STRAIGHT CATH AND TAKEN TO LAB. PT TOLERATED WELL. 100ML URINE DRAINED.
[2020-10-12 13:22] VITALS: BP 123/78
[2020-10-12 13:40] LABS: MICROSCOPIC INDICATED
--- NOTE | 2020-10-12 13:59 | NUR ---
ALL RESULTS ARE BACK AT THIS TIME. CHART UP FOR RECHECK.
--- NOTE | 2020-10-12 14:51 | NUR ---
[facility] CALLED FOR PT. GRAB HOOKER TO ASSIST PT TO TAXI. PT ROOMATE NOTIFIED OF PT ARRIVAL HOME, PER PT REQUEST.
== END 2020-10-12 14:58 | disposition home or self-care (01) ==
LOC: ED 11:30
DX: N30.00 Acute cystitis without hematuria (principal); R53.1 Weakness; R42 Dizziness and giddiness; E11.9 Type 2 diabetes mellitus without complications; Z86.73 Personal history of transient ischemic attack (TIA), and cerebral infarction without residual deficits
CPT/HCPCS: 36415; 72131; 80053; 81001; 82150; 83690; 85025; 87086; 96361; 96374; 96375; 96376; 99284; J2270; J2405; J7030

== ENCOUNTER 2020-10-23 17:38 | Emergency (ER) | payer MEDICAID ==
[~2020-10-23] VITALS: Ht 185.4 cm; Wt 126.0 kg
--- NOTE | 2020-10-23 17:48 | NUR ---
PT PRESENTS TO ED VIA AMBULANCE WITH C/O LEFT UPPER ABD PAIN, N/V/D X 1 DAY , REPORT TAKEN FROM EMS. PT HAS HX PANCREATITIS. PT DENIES RECENT ETOH USE. PT DENIES COUGH OR FEVER. PT IS A&OX4, RESPS EVEN AND UNLABORED. PT GIVEN 100MCG FENTANYL, 4MG ZOFRAN, 250 CC NS CASH PERSON. BP AND SPO2 MONITORS IN PLACE. CALL LIGHT IN REACH. EDPA ELENO AT BEDSIDE FOR INITIAL ASSESSMENT.
[2020-10-23] MEDS ORDERED: MAALOX/HYOSCYAMINE/LIDOCAINE 45 ML BTL PO ONE (18:00)
[2020-10-23] MEDS ORDERED: ONDANSETRON 2MG/ML, 2ML IVPush ONE (18:00)
[2020-10-23] MEDS ORDERED: SODIUM CHLORIDE FLUSH 10ML SYR IVF ONE (18:00)
[2020-10-23] MEDS ORDERED: ONDANSETRON ODT 4 MG ONE (18:23)
[2020-10-23] MEDS ORDERED: MAALOX/HYOSCYAMINE/LIDOCAINE 45 ML BTL ONE (18:23)
[2020-10-23] MEDS ORDERED: ONDANSETRON 2MG/ML, 2ML ONE (18:28)
[2020-10-23] MEDS ORDERED: MORPHINE SULFATE 4 MG/ML, 1ML ONE (18:28)
[2020-10-23 18:30] LABS: BASOPHILS % (AUTO) 1 % (0-1); EOSINOPHILS % (AUTO) 6 % (1-7); LYMPHOCYTES % (AUTO) 22 % (22-44); MEAN CORPUSCULAR HEMOGLOBIN 31.1 pg (27.5-34.5); MEAN CORPUSCULAR HGB CONC 33.7 g/dL (33.2-36.2); MEAN PLATELET VOLUME 10.9 fL (7.4-10.4); MONOCYTES % (AUTO) 8 % (2-9); NEUTROPHILS % (AUTO) 63 % (42-75); PLATELET COUNT 182 x10^3/uL (130-400); RED BLOOD COUNT 4.64 x10^6/uL (4.38-5.82); RED CELL DISTRIBUTION WIDTH 14.1 % (9.4-14.8)
[2020-10-23] MEDS ORDERED: MORPHINE SULFATE 4 MG/ML, 1ML IVPush PRN (18:30)
--- NOTE | 2020-10-23 18:30 | NUR ---
pt instructed to provide clean catch ua when able, urinal at bedside.
[2020-10-23] MEDS ORDERED: LORazepam 2 MG/ML, 1ML ONE (18:31)
--- NOTE | 2020-10-23 18:31 | NUR ---
SALIANS RN -- PT MEDICATED PER DEC, PT VSS
[2020-10-23 18:32] LABS: MD NO
[2020-10-23 18:35] LABS: ALANINE AMINOTRANSFERASE 15 U/L (12-78); ALBUMIN 3.4 g/dL (3.4-5.0); CALCIUM 8.5 mg/dL (8.5-10.1); CREATININE 2.13 mg/dL (0.7-1.3)
[2020-10-23 18:38] LABS: ALKALINE PHOSPHATASE 93 U/L (45-117); BILIRUBIN,TOTAL 0.4 mg/dL (0.2-1.0); TOTAL PROTEIN 7.3 g/dL (6.4-8.2)
[2020-10-23 18:49] LABS: ANION GAP 0 mmol/L (5-15); CHLORIDE 105 mmol/L (98-107)
--- NOTE | 2020-10-23 19:03 | NUR ---
REPORT GIVEN AT BEDSIDE TO DANITA STEVENSON. PT A&O, RESPS EVEN AND UNLABORED, CALM AND COOPERATIVE. PT STATES "THAT MORPHINE DIDN'T HELP AT ALL." PROVIDER NOTIFIED. PT INSTRUCTED TO PROVIDE CLEAN CATCH URINE, URINAL IN REACH. CALL LIGHT IN REACH.
--- NOTE | 2020-10-23 19:09 | NUR ---
Bedside report from DANITA Fernandez. Pt reeducated about need for UA. VSS.
[2020-10-23 20:12] LABS: MICROSCOPIC INDICATED
[2020-10-23 21:01] VITALS: BP 106/81
== END 2020-10-23 21:04 | disposition home or self-care (01) ==
LOC: ED 18:02
DX: R10.13 Epigastric pain (principal); R11.2 Nausea with vomiting, unspecified; R19.7 Diarrhea, unspecified; E11.9 Type 2 diabetes mellitus without complications; F17.200 Nicotine dependence, unspecified, uncomplicated
CPT/HCPCS: 36415; 80053; 81001; 83690; 85025; 93005; 96374; 96375; 99284; J2270; J2405

== ENCOUNTER 2020-10-25 20:40 | Emergency (ER) | payer MEDICAID ==
[~2020-10-25] VITALS: Ht 185.4 cm; Wt 127.0 kg
[2020-10-25] MEDS ORDERED: HYDROmorphone 2 MG/ML, 1ML IVPush PRN (21:00)
[2020-10-25] MEDS ORDERED: ONDANSETRON 2MG/ML, 2ML IVPush ONE (21:00)
--- NOTE | 2020-10-25 21:03 | NUR ---
KENYATTA ALEXANDER BS [address] [facility] #[phone]
[2020-10-25 21:20] LABS: ALANINE AMINOTRANSFERASE 16 U/L (12-78); ALBUMIN 3.3 g/dL (3.4-5.0); ANION GAP 5 mmol/L (5-15); CALCIUM 8.2 mg/dL (8.5-10.1); CHLORIDE 105 mmol/L (98-107); CREATININE 2.65 mg/dL (0.7-1.3)
[2020-10-25] MEDS ORDERED: ONDANSETRON 2MG/ML, 2ML ONE (21:20)
[2020-10-25] MEDS ORDERED: HYDROmorphone 1 MG/ML, 1ML INJ ONE ×2 (21:21→22:19)
[2020-10-25 21:24] LABS: ALKALINE PHOSPHATASE 107 U/L (45-117); BILIRUBIN,TOTAL 0.3 mg/dL (0.2-1.0); TOTAL PROTEIN 6.9 g/dL (6.4-8.2); TROPONIN I < 0.015 ng/mL (0.000-0.045)
[2020-10-25 22:37] LABS: BASOPHILS % (AUTO) 1 % (0-1); EOSINOPHILS % (AUTO) 3 % (1-7); LYMPHOCYTES % (AUTO) 12 % (22-44); MEAN CORPUSCULAR HEMOGLOBIN 30.8 pg (27.5-34.5); MEAN PLATELET VOLUME 11.3 fL (7.4-10.4); MONOCYTES % (AUTO) 8 % (2-9); NEUTROPHILS % (AUTO) 76 % (42-75); PLATELET COUNT 181 x10^3/uL (130-400); RED BLOOD COUNT 4.54 x10^6/uL (4.38-5.82); RED CELL DISTRIBUTION WIDTH 14.1 % (9.4-14.8)
[2020-10-25 22:44] LABS: MD NO
[2020-10-25 23:11] VITALS: BP 130/80
== END 2020-10-25 23:17 | disposition home or self-care (01) ==
LOC: ED 21:04
DX: R10.13 Epigastric pain (principal); R55 Syncope and collapse; R42 Dizziness and giddiness; I10 Essential (primary) hypertension; E11.9 Type 2 diabetes mellitus without complications; E78.5 Hyperlipidemia, unspecified; R07.89 Other chest pain; F17.210 Nicotine dependence, cigarettes, uncomplicated; Z90.89 Acquired absence of other organs; Z86.73 Personal history of transient ischemic attack (TIA), and cerebral infarction without residual deficits
CPT/HCPCS: 36415; 71045; 80053; 83690; 83880; 84484; 85025; 93005; 96374; 99285; 99406; J2405

== ENCOUNTER 2020-10-30 15:37 | Emergency (ER) | payer MEDICAID ==
[~2020-10-30] VITALS: Ht 185.4 cm; Wt 125.0 kg
[2020-10-30] MEDS ORDERED: ONDANSETRON 2MG/ML, 2ML IVPush ONE (16:00)
[2020-10-30] MEDS ORDERED: SODIUM CHLORIDE FLUSH 10ML SYR IVF ONE (16:00)
[2020-10-30] MEDS ORDERED: SODIUM CHLORIDE 0.9% 1,000ML IVBOLUS ONE (16:00)
[2020-10-30] MEDS ORDERED: ONDANSETRON 2MG/ML, 2ML ONE (16:20)
[2020-10-30] MEDS ORDERED: HYDROmorphone 1 MG/ML, 1ML INJ ONE (16:20)
[2020-10-30 16:21] LABS: BASOPHILS % (AUTO) 1 % (0-1); EOSINOPHILS % (AUTO) 6 % (1-7); LYMPHOCYTES % (AUTO) 24 % (22-44); MEAN CORPUSCULAR HEMOGLOBIN 30.8 pg (27.5-34.5); MEAN CORPUSCULAR HGB CONC 33.6 g/dL (33.2-36.2); MEAN PLATELET VOLUME 10.7 fL (7.4-10.4); MONOCYTES % (AUTO) 8 % (2-9); NEUTROPHILS % (AUTO) 61 % (42-75); PLATELET COUNT 188 x10^3/uL (130-400); RED BLOOD COUNT 4.78 x10^6/uL (4.38-5.82); RED CELL DISTRIBUTION WIDTH 14.3 % (9.4-14.8)
[2020-10-30] MEDS: HYDROmorphone 2 MG/ML, 1ML IVPush PRN ×2 (16:23→16:53)
[2020-10-30 16:26] LABS: MD NO
[2020-10-30 16:27] LABS: ALANINE AMINOTRANSFERASE 15 U/L (12-78); ALBUMIN 3.6 g/dL (3.4-5.0); ANION GAP 4 mmol/L (5-15); CALCIUM 8.8 mg/dL (8.5-10.1); CHLORIDE 107 mmol/L (98-107); CREATININE 1.88 mg/dL (0.7-1.3)
[2020-10-30 16:29] LABS: ALKALINE PHOSPHATASE 112 U/L (45-117); BILIRUBIN,TOTAL 0.5 mg/dL (0.2-1.0); TOTAL PROTEIN 7.7 g/dL (6.4-8.2)
--- NOTE | 2020-10-30 16:39 | NUR ---
REPORT RC'VD FROM RICH SAMAYOA. PT STILL REPORTS MODERATE ABD PAIN AFTER FIRST DOSE DILAUDID. WILL GIVE SECOND DOSE PER ORDERS. IV BOLUS INFUSING. PT REPOSITIONED FOR COMFORT.
[2020-10-30] MEDS ORDERED: HYDROmorphone 2 MG/ML, 1ML ONE (16:42)
[2020-10-30 16:55] VITALS: BP 127/82
--- NOTE | 2020-10-30 17:30 | NUR ---
PT REPORTS FEELING BETTER AFTER 2ND DOSE DILAUDID. D/C INSTRUCTIONS, MEDS & F/U APPT RV'WD WITH PT, HE VERBALIZES UNDERSTANDING. ASSISTED PT OUT OF ED VIA WC. CAB VOUCHER PROVIDED.
== END 2020-10-30 17:38 | disposition home or self-care (01) ==
LOC: ED 17:09
DX: K85.30 Drug induced acute pancreatitis without necrosis or infection (principal); G89.29 Other chronic pain; R10.13 Epigastric pain; E11.9 Type 2 diabetes mellitus without complications; I10 Essential (primary) hypertension; E78.5 Hyperlipidemia, unspecified; Z86.73 Personal history of transient ischemic attack (TIA), and cerebral infarction without residual deficits; Z90.49 Acquired absence of other specified parts of digestive tract; Z88.1 Allergy status to other antibiotic agents; Z88.5 Allergy status to narcotic agent
CPT/HCPCS: 36415; 80053; 83690; 85025; 96374; 96375; 99284; J1170; J2405; J7030

== ENCOUNTER 2020-11-05 18:16 | Emergency (ER) | payer MEDICAID ==
[~2020-11-05] VITALS: Ht 185.4 cm; Wt 126.0 kg
[2020-11-05] MEDS ORDERED: PROMETHAZINE 25 MG/ML, 1ML IM ONE (19:00)
[2020-11-05] MEDS ORDERED: KETOROLAC 30 MG/1 ML IM ONE (19:00)
[2020-11-05 19:03] LABS: BASOPHILS % (AUTO) 1 % (0-1); EOSINOPHILS % (AUTO) 9 % (1-7); LYMPHOCYTES % (AUTO) 27 % (22-44); MEAN CORPUSCULAR HEMOGLOBIN 31.4 pg (27.5-34.5); MEAN PLATELET VOLUME 10.7 fL (7.4-10.4); MONOCYTES % (AUTO) 8 % (2-9); NEUTROPHILS % (AUTO) 55 % (42-75); PLATELET COUNT 166 x10^3/uL (130-400); RED BLOOD COUNT 4.51 x10^6/uL (4.38-5.82); RED CELL DISTRIBUTION WIDTH 14.5 % (9.4-14.8)
--- NOTE | 2020-11-05 19:06 | NUR ---
BEDSIDE REPORT RECEIVED FROM GRAHAM SAMAYOA
[2020-11-05 19:07] LABS: MD NO
--- NOTE | 2020-11-05 19:07 | NUR ---
Pt remains connected to all monitors. JENNIEN. Bedside report to DANITA Frank.
[2020-11-05 19:12] LABS: ALANINE AMINOTRANSFERASE 15 U/L (12-78); ALBUMIN 3.2 g/dL (3.4-5.0); CALCIUM 8.7 mg/dL (8.5-10.1); CREATININE 2.05 mg/dL (0.7-1.3)
[2020-11-05 19:13] LABS: ALKALINE PHOSPHATASE 100 U/L (45-117); BILIRUBIN,TOTAL 0.3 mg/dL (0.2-1.0)
[2020-11-05] MEDS ORDERED: PROMETHAZINE 25 MG/ML, 1ML ONE (19:15)
[2020-11-05] MEDS ORDERED: KETOROLAC 60 MG/2 ML ONE (19:16)
[2020-11-05 19:19] LABS: ANION GAP 3 mmol/L (5-15); CHLORIDE 104 mmol/L (98-107)
--- NOTE | 2020-11-05 20:30 | NUR ---
PT SITTING UPRIGHT ON GURNEY NAD, RESTING COMFRTABLY WITH EYES CLOSED. PT REPORTS NO RELIEF IN PAIN, REQUESTING MORE PAIN MEDICATION. ERP NOTIFIED, WILL MEDICATE PER EMAR. NO ADDITIONAL NEEDS AT THIS TIME.
[2020-11-05] MEDS ORDERED: HYDROmorphone 1 MG/ML, 1ML INJ ONE (20:50)
[2020-11-05] MEDS ORDERED: HYDROmorphone 1 MG/ML, 1ML INJ IM ONE (21:00)
[2020-11-05 21:25] VITALS: BP 158/100
--- NOTE | 2020-11-05 21:35 | NUR ---
Patient given discharge instructions and they have confirmed that they understand the instructions. Patient ambulatory with steady gait with use of personal cane. Pt provided taxi voucher home.
== END 2020-11-05 21:37 | disposition home or self-care (01) ==
LOC: ED 18:30
DX: E11.22 Type 2 diabetes mellitus with diabetic chronic kidney disease (principal); I12.9 Hypertensive chronic kidney disease with stage 1 through stage 4 chronic kidney disease, or unspecified chronic kidney disease; N18.9 Chronic kidney disease, unspecified; E11.65 Type 2 diabetes mellitus with hyperglycemia; G89.29 Other chronic pain; R10.13 Epigastric pain; R42 Dizziness and giddiness; R11.2 Nausea with vomiting, unspecified; E78.5 Hyperlipidemia, unspecified; F17.210 Nicotine dependence, cigarettes, uncomplicated; Z90.89 Acquired absence of other organs; Z86.73 Personal history of transient ischemic attack (TIA), and cerebral infarction without residual deficits
CPT/HCPCS: 36415; 80053; 83690; 85025; 93005; 96372; 99284; J1170; J1885; J2550

== ENCOUNTER 2020-11-12 16:11 | Emergency (ER) | payer MEDICAID ==
[~2020-11-12] VITALS: Ht 175.3 cm; Wt 102.3 kg
[2020-11-12 16:31] VITALS: BP 160/89
[2020-11-12 17:01] LABS: PH, VENOUS 7.371 pH (7.320-7.420)
[2020-11-12 17:13] LABS: BASOPHILS % (AUTO) 1 % (0-1); EOSINOPHILS % (AUTO) 9 % (1-7); LYMPHOCYTES % (AUTO) 24 % (22-44); MEAN CORPUSCULAR HEMOGLOBIN 31.5 pg (27.5-34.5); MEAN PLATELET VOLUME 11.3 fL (7.4-10.4); MONOCYTES % (AUTO) 7 % (2-9); NEUTROPHILS % (AUTO) 58 % (42-75); PLATELET COUNT 139 x10^3/uL (130-400); RED BLOOD COUNT 4.53 x10^6/uL (4.38-5.82); RED CELL DISTRIBUTION WIDTH 14.5 % (9.4-14.8)
[2020-11-12 17:14] LABS: ALBUMIN 3.5 g/dL (3.4-5.0); ANION GAP 6 mmol/L (5-15); CALCIUM 9.1 mg/dL (8.5-10.1); CHLORIDE 103 mmol/L (98-107)
[2020-11-12 17:18] LABS: MD NO
[2020-11-12 17:19] LABS: ALANINE AMINOTRANSFERASE 20 U/L (12-78); ALKALINE PHOSPHATASE 90 U/L (45-117); BILIRUBIN,TOTAL 0.4 mg/dL (0.2-1.0); CREATININE 2.07 mg/dL (0.7-1.3); TOTAL PROTEIN 7.3 g/dL (6.4-8.2)
[2020-11-12 17:27] LABS: ACETONE, SERUM Small (20mg/dL) (Negative)
[2020-11-12] MEDS ORDERED: INSULIN SINGLE DOSE, ER ONE (17:27)
[2020-11-12] MEDS ORDERED: INSULIN REGULAR 100 UNITS/ML, 3ML VIAL SQ-INSULIN ONE (18:00)
== END 2020-11-12 18:21 | disposition home or self-care (01) ==
LOC: ED 17:00
DX: E11.65 Type 2 diabetes mellitus with hyperglycemia (principal); R42 Dizziness and giddiness; R11.0 Nausea; R10.9 Unspecified abdominal pain
CPT/HCPCS: 36415; 80053; 82010; 82803; 83690; 85025; 93005; 99284; J1815

== ENCOUNTER 2020-11-16 15:43 | Emergency (ER) | payer MEDICAID ==
[~2020-11-16] VITALS: Ht 185.4 cm; Wt 125.0 kg
--- NOTE | 2020-11-16 15:52 | NUR ---
PATIENT IS A 45M BIB EMS COMPLAINING OF PERIUMBILICAL ABDOMINAL PAIN SINCE THIS MORNING. STATES THIS FEELS LIKE PAIN HE HAD BEFORE WITH PREVIOUS PANCREATITIS. PATIENT IS LEGALY BLIND. HE IS RESTING COMFORTABLY IN BED, WARM BLANKETS PROVIDED. CALL LIGHT WITHIN REACH. RAG BALER, CONTINUOUS SPO2 AND CYCLING VITALS. NO ADDITIONAL NEEDS AT THIS TIME.
[2020-11-16] MEDS ORDERED: ONDANSETRON 2MG/ML, 2ML ONE (16:12)
[2020-11-16] MEDS ORDERED: MORPHINE SULFATE 4 MG/ML, 1ML ONE ×2 (16:13→17:16)
[2020-11-16] MEDS: MORPHINE SULFATE 4 MG/ML, 1ML IVPush PRN ×2 (16:16→17:18)
[2020-11-16] MEDS ORDERED: SODIUM CHLORIDE FLUSH 10ML SYR IVF ONE (16:30)
[2020-11-16] MEDS ORDERED: ONDANSETRON 2MG/ML, 2ML IVPush ONE (16:30)
--- NOTE | 2020-11-16 16:42 | NUR ---
IV PLACED BY ERI SAMAYOA. PATIENT RESTING COMFORTABLY IN BED. CALL LIGHT WITHIN REACH. MEDICATED PER EMAR.
[2020-11-16 16:45] LABS: BASOPHILS % (AUTO) 1 % (0-1); EOSINOPHILS % (AUTO) 11 % (1-7); LYMPHOCYTES % (AUTO) 27 % (22-44); MEAN CORPUSCULAR HEMOGLOBIN 31.2 pg (27.5-34.5); MEAN CORPUSCULAR HGB CONC 33.7 g/dL (33.2-36.2); MEAN PLATELET VOLUME 11.6 fL (7.4-10.4); MONOCYTES % (AUTO) 7 % (2-9); NEUTROPHILS % (AUTO) 54 % (42-75); PLATELET COUNT 81 x10^3/uL (130-400); RED BLOOD COUNT 4.67 x10^6/uL (4.38-5.82); RED CELL DISTRIBUTION WIDTH 14.6 % (9.4-14.8)
[2020-11-16 16:46] LABS: MD NO
[2020-11-16 16:54] LABS: ALANINE AMINOTRANSFERASE 21 U/L (12-78); ALBUMIN 3.4 g/dL (3.4-5.0); ANION GAP 6 mmol/L (5-15); CALCIUM 8.7 mg/dL (8.5-10.1); CHLORIDE 104 mmol/L (98-107); CREATININE 1.78 mg/dL (0.7-1.3)
[2020-11-16 16:57] LABS: ALKALINE PHOSPHATASE 93 U/L (45-117); BILIRUBIN,TOTAL 0.5 mg/dL (0.2-1.0); TOTAL PROTEIN 7.4 g/dL (6.4-8.2)
--- NOTE | 2020-11-16 17:20 | NUR ---
PATIENT COMPLAINING OF 10/10 ABDOMINAL PAIN AFTER FIRST DOSE OF MORPHINE. MEDICATED WITH A SECOND DOSE. NOTIFIED PROVIDER OF PT BP 207/131. CALL LIGHT WITHIN REACH. BEDRAILS UP. NO ADDITIONAL NEEDS AT THIS TIME
--- NOTE | 2020-11-16 17:49 | NUR ---
IV enalapril out of stock in the ER. sent request to pharmacy.
[2020-11-16] MEDS ORDERED: ENALAPRILAT 1.25 MG/ML, 2ML IV ONE (18:00)
--- NOTE | 2020-11-16 18:56 | NUR ---
REPORT TO MARQUISE SAMAYOA.
--- NOTE | 2020-11-16 18:59 | NUR ---
REPORT FROM INGRIS SAMAYOA.
--- NOTE | 2020-11-16 19:36 | NUR ---
TASK RN: PT RESTING ON GURNEY. NADN. GUTIERREZ.
[2020-11-16 20:08] VITALS: BP 157/111
== END 2020-11-16 20:11 | disposition home or self-care (01) ==
LOC: ED 17:53
DX: G89.29 Other chronic pain (principal); R10.13 Epigastric pain; I10 Essential (primary) hypertension; E16.1 Other hypoglycemia; R73.9 Hyperglycemia, unspecified; E78.5 Hyperlipidemia, unspecified; Z88.1 Allergy status to other antibiotic agents
CPT/HCPCS: 36415; 80053; 83690; 85025; 96374; 96375; 96376; 99285; J2270; J2405

== ENCOUNTER 2020-11-22 15:30 | Emergency (ER) | payer MEDICAID ==
[~2020-11-22] VITALS: Ht 185.4 cm; Wt 125.0 kg
--- NOTE | 2020-11-22 16:00 | NUR ---
BIB EMS FROM [facility] FOR SUICIDAL IDEATIONS THAT STARTED TODAY. PT STATES HE HAS VOICES TELLING HIM TO WRAP THINGS AROUND HIS NECK. PT DENIES HI THOUGHTS. PT HAS A HX OF PSYCH ISSUES AND SUICIDAL IDEATIONS. PT ALSO STATES HE HAS LOWER LEFT ABD PAIN THAT GOES THROUGH TO HIS BACK, BUT THAT THIS PAIN HAS BEEN CHRONIC OVER THE LAST 6 YEARS AND IS DUE TO PANCREATITIS. PT'S BELONGINGS SECURED AND PLACED IN CABINET. ROOM SECURED. SITTER OUTSIDE IN FULL VIEW.
[2020-11-22 16:17] LABS: BASOPHILS % (AUTO) 1 % (0-1); EOSINOPHILS % (AUTO) 12 % (1-7); LYMPHOCYTES % (AUTO) 25 % (22-44); MEAN CORPUSCULAR HGB CONC 33.5 g/dL (33.2-36.2); MONOCYTES % (AUTO) 7 % (2-9); NEUTROPHILS % (AUTO) 55 % (42-75); PLATELET COUNT 165 x10^3/uL (130-400); RED BLOOD COUNT 4.46 x10^6/uL (4.38-5.82); RED CELL DISTRIBUTION WIDTH 14.3 % (9.4-14.8)
[2020-11-22 16:23] LABS: MICROSCOPIC AUTO
[2020-11-22 16:25] LABS: MD NO
[2020-11-22 16:30] LABS: ALANINE AMINOTRANSFERASE 18 U/L (12-78); ALBUMIN 3.2 g/dL (3.4-5.0); CALCIUM 8.3 mg/dL (8.5-10.1); CHLORIDE 104 mmol/L (98-107); CREATININE 1.73 mg/dL (0.7-1.3)
[2020-11-22 16:34] LABS: ALKALINE PHOSPHATASE 86 U/L (45-117); BILIRUBIN,TOTAL 0.4 mg/dL (0.2-1.0); TOTAL PROTEIN 6.9 g/dL (6.4-8.2)
[2020-11-22 16:36] LABS: AMPHETAMINE SCREEN, URINE Negative (Negative); BARBITURATE SCREEN, URINE Negative (Negative); BENZODIAZEPINE SCREEN, URINE Negative (Negative); CANNABINOID SCREEN, URINE Negative (Negative); COCAINE SCREEN, URINE Negative (Negative); METHADONE SCREEN, URINE Negative (Negative); OPIATE SCREEN, URINE Negative (Negative)
[2020-11-22 16:38] LABS: ANION GAP 7 mmol/L (5-15)
[2020-11-22 16:41] LABS: SALICYLATE LEVEL < 1.7 mg/dL (2.8-20.0)
[2020-11-22] MEDS ORDERED: PALIPERIDONE 3 MG TAB.ER.24 PO ONE (17:30)
--- NOTE | 2020-11-22 20:04 | NUR ---
DR. SONG NOTIFIED OF HYPERTENSION. PATIENT TAKES HYDRALAZINE 10MG PO AT HOME. WE WILL GIVE THAT AND RECHECK AND SEND PATIENT UP TO [facility]. PT STATES HE HAS RICHARD FROM ALL THE VOICES IN HIS HEAD. 1:1 IN VIEW OF PATIENT
[2020-11-22 20:24] VITALS: BP 171/106
--- NOTE | 2020-11-22 20:29 | NUR ---
REPORT GIVEN TO KATHRIN SAMAYOA IN [facility] VIA PHONE
[2020-11-23] MEDS ORDERED: DOCU-131 PO (02:46)
[2020-11-23] MEDS ORDERED: CHLO15MO PO (02:46)
[2020-11-23] MEDS ORDERED: ATOR-2 PO (02:46)
[2020-11-23] MEDS ORDERED: SERT100T PO (02:46)
[2020-11-23] MEDS ORDERED: INSU100I13 SQ (02:46)
[2020-11-23] MEDS ORDERED: TRAZ-175 PO (02:46)
== END 2020-11-22 20:57 ==
LOC: ED 16:55
DX: F25.9 Schizoaffective disorder, unspecified (principal); Z20.822 Contact with and (suspected) exposure to COVID-19; F23 Brief psychotic disorder; I10 Essential (primary) hypertension; E11.9 Type 2 diabetes mellitus without complications; E78.5 Hyperlipidemia, unspecified; Z86.73 Personal history of transient ischemic attack (TIA), and cerebral infarction without residual deficits; Z90.89 Acquired absence of other organs
CPT/HCPCS: 36415; 80053; 80299; 80307; 80320; 80329; 81001; 83690; 85025; 87635; 99284; G0480

== ENCOUNTER 2020-12-13 17:32 | Emergency (ER) | payer MEDICAID ==
[~2020-12-13] VITALS: Ht 185.4 cm; Wt 125.0 kg
[~2020-12-13 17:32] MED LIST changes: -ASPI-515 PO; +ASPI-963 PO; +CHLO15MO PO; -LISI-420 PO; +LISI10TA19 PO; -LISI10TA2 PO; +LISI20TA21 PO; +METH-639 PO; +METH-640 PO; -METH500T7 PO; -METH750T2 PO; -OXYC-302 PO; +OXYC1TAB14 PO; +SERT-331 PO; +SERT100T PO; -SERT25TA3 PO
--- NOTE | 2020-12-13 18:51 | NUR ---
JOURNEYMAN ELECTRICIAN: PT TO ROOM FROM LOBBY, VIA W/C
--- NOTE | 2020-12-13 18:59 | NUR ---
pt back to room in
--- NOTE | 2020-12-13 19:01 | NUR ---
pt states that he came in because. "my pancreas is getting worse"
[2020-12-13 19:05] LABS: BASOPHILS % (AUTO) 1 % (0-1); EOSINOPHILS % (AUTO) 5 % (1-7); LYMPHOCYTES % (AUTO) 31 % (22-44); MEAN CORPUSCULAR HEMOGLOBIN 30.9 pg (27.5-34.5); MEAN CORPUSCULAR HGB CONC 33.5 g/dL (33.2-36.2); MEAN PLATELET VOLUME 10.2 fL (7.4-10.4); MONOCYTES % (AUTO) 8 % (2-9); NEUTROPHILS % (AUTO) 56 % (42-75); PLATELET COUNT 172 x10^3/uL (130-400); RED BLOOD COUNT 4.75 x10^6/uL (4.38-5.82)
[2020-12-13 19:06] LABS: MD NO
[2020-12-13 19:16] LABS: ALANINE AMINOTRANSFERASE 20 U/L (12-78); ALBUMIN 3.7 g/dL (3.4-5.0); ANION GAP 7 mmol/L (5-15); CALCIUM 9.1 mg/dL (8.5-10.1); CHLORIDE 109 mmol/L (98-107); CREATININE 1.86 mg/dL (0.7-1.3)
[2020-12-13 19:18] LABS: ALKALINE PHOSPHATASE 61 U/L (45-117); BILIRUBIN,TOTAL 0.4 mg/dL (0.2-1.0); TOTAL PROTEIN 7.6 g/dL (6.4-8.2)
--- NOTE | 2020-12-13 19:45 | NUR ---
ATTEMPT TO COLLECT UA. PT URINATED ON FLOOR
--- NOTE | 2020-12-13 20:27 | NUR ---
pt in bed unable to void.
--- NOTE | 2020-12-13 20:55 | NUR ---
pt unable to void. notified PA.
[2020-12-13 21:46] VITALS: BP 182/95
--- NOTE | 2020-12-13 21:50 | NUR ---
REPORT FROM KEN SAMAYOACANCER RESEARCHER OF CARE AT THIS TIME
--- NOTE | 2020-12-13 22:01 | NUR ---
ERP UPDATED ON URINE SAMPLE, STS WILL SEE PATIENT SHORTLY TO DISCUSS POC
[2020-12-13] MEDS ORDERED: MAALOX/HYOSCYAMINE/LIDOCAINE 45 ML BTL ONE (22:21)
[2020-12-13] MEDS ORDERED: MAALOX/HYOSCYAMINE/LIDOCAINE 45 ML BTL PO ONE (22:30)
--- NOTE | 2020-12-13 22:35 | NUR ---
PT MEDICATED PER DEC, NOW REQ RN TO DRESS HIM. RN INFORMED HIM THAT HE IS ABLE TO DO THIS INDEPENDENTLY. PT ALSO REQ TAXI VOUCHER AND SOCKS AND NEW CLOTHING.
--- NOTE | 2020-12-13 22:49 | NUR ---
SECURITY AT BEDSIDE FOR ESCORT OUT
== END 2020-12-13 22:52 | disposition home or self-care (01) ==
LOC: ED 18:00
DX: K29.00 Acute gastritis without bleeding (principal); R10.13 Epigastric pain; R11.2 Nausea with vomiting, unspecified; G89.29 Other chronic pain; I10 Essential (primary) hypertension; E11.9 Type 2 diabetes mellitus without complications; E78.5 Hyperlipidemia, unspecified; F17.210 Nicotine dependence, cigarettes, uncomplicated; Z86.73 Personal history of transient ischemic attack (TIA), and cerebral infarction without residual deficits; Z90.89 Acquired absence of other organs
CPT/HCPCS: 36415; 76700; 80053; 83690; 85025; 99284; 99406

== ENCOUNTER 2020-12-16 20:16 | Emergency (ER) | payer MEDICAID ==
[~2020-12-16] VITALS: Ht 185.4 cm; Wt 125.0 kg
[2020-12-16] MEDS ORDERED: MAALOX/HYOSCYAMINE/LIDOCAINE 45 ML BTL ONE (20:38)
--- NOTE | 2020-12-16 20:41 | NUR ---
Pt arrives via [facility] with epigastric pain, "pain in my pancreas". Was seen yesterday for same. Hooked up to monitor, GI cocktail given per eMAR. XR at bedside.
--- NOTE | 2020-12-16 20:45 | NUR ---
Lab at bedside.
[2020-12-16] MEDS ORDERED: MAALOX/HYOSCYAMINE/LIDOCAINE 45 ML BTL PO ONE (21:00)
[2020-12-16 21:06] LABS: BASOPHILS % (AUTO) 1 % (0-1); EOSINOPHILS % (AUTO) 7 % (1-7); LYMPHOCYTES % (AUTO) 35 % (22-44); MD NO; MEAN CORPUSCULAR HEMOGLOBIN 30.9 pg (27.5-34.5); MEAN CORPUSCULAR HGB CONC 33.4 g/dL (33.2-36.2); MONOCYTES % (AUTO) 9 % (2-9); NEUTROPHILS % (AUTO) 48 % (42-75); PLATELET COUNT 163 x10^3/uL (130-400); RED BLOOD COUNT 4.31 x10^6/uL (4.38-5.82); RED CELL DISTRIBUTION WIDTH 14.4 % (9.4-14.8)
[2020-12-16 21:10] LABS: ALBUMIN 3.3 g/dL (3.4-5.0); ANION GAP 6 mmol/L (5-15); CALCIUM 8.5 mg/dL (8.5-10.1); CHLORIDE 105 mmol/L (98-107)
[2020-12-16 21:13] LABS: ALANINE AMINOTRANSFERASE 23 U/L (12-78); ALKALINE PHOSPHATASE 62 U/L (45-117); BILIRUBIN,TOTAL 0.3 mg/dL (0.2-1.0); CREATININE 1.71 mg/dL (0.7-1.3); TOTAL PROTEIN 6.8 g/dL (6.4-8.2)
[2020-12-16] MEDS ORDERED: FAMOTIDINE 20 MG TABLET PO ONE (21:30)
[2020-12-16] MEDS ORDERED: DICYCLOMINE 10 MG CAPSULE PO ONE (21:30)
[2020-12-16] MEDS ORDERED: FAMOTIDINE 20 MG TABLET ONE (21:37)
--- NOTE | 2020-12-16 21:42 | NUR ---
Bentyl and pepcid given per eMAR.
[2020-12-16 22:59] VITALS: BP 125/82
== END 2020-12-16 23:00 | disposition home or self-care (01) ==
LOC: ED 21:01
DX: R10.13 Epigastric pain (principal); R10.32 Left lower quadrant pain; F10.10 Alcohol abuse, uncomplicated; R94.31 Abnormal electrocardiogram [ECG] [EKG]; Z72.9 Problem related to lifestyle, unspecified; E11.9 Type 2 diabetes mellitus without complications; I10 Essential (primary) hypertension; F17.210 Nicotine dependence, cigarettes, uncomplicated; Z86.73 Personal history of transient ischemic attack (TIA), and cerebral infarction without residual deficits; Z90.89 Acquired absence of other organs; Y90.0 Blood alcohol level of less than 20 mg/100 ml
CPT/HCPCS: 36415; 71045; 80053; 83690; 85025; 93005; 99285

== ENCOUNTER 2021-01-18 16:56 | Emergency (ER) | payer MEDICAID ==
[~2021-01-18] VITALS: Ht 185.4 cm; Wt 125.0 kg
--- NOTE | 2021-01-18 17:00 | NUR ---
Pt arrives via [facility] from home reporting abdominal pain and n/v for a few days.
[2021-01-18] MEDS ORDERED: ONDANSETRON ODT 8 MG PO ONE (17:30)
[2021-01-18] MEDS ORDERED: ONDANSETRON ODT 8 MG ONE (17:32)
[2021-01-18 17:52] LABS: ALANINE AMINOTRANSFERASE 25 U/L (12-78); ALBUMIN 3.6 g/dL (3.4-5.0); ANION GAP 3 mmol/L (5-15); BASOPHILS % (AUTO) 1 % (0-1); CALCIUM 8.3 mg/dL (8.5-10.1); CHLORIDE 108 mmol/L (98-107); CREATININE 1.85 mg/dL (0.7-1.3); EOSINOPHILS % (AUTO) 4 % (1-7); LYMPHOCYTES % (AUTO) 31 % (22-44); MEAN CORPUSCULAR HEMOGLOBIN 31.3 pg (27.5-34.5); MEAN CORPUSCULAR HGB CONC 33.7 g/dL (33.2-36.2); MEAN PLATELET VOLUME 11.5 fL (7.4-10.4); MONOCYTES % (AUTO) 8 % (2-9); NEUTROPHILS % (AUTO) 56 % (42-75); PLATELET COUNT 146 x10^3/uL (130-400); RED BLOOD COUNT 4.68 x10^6/uL (4.38-5.82)
[2021-01-18 17:53] LABS: MD NO
[2021-01-18 17:54] LABS: ALKALINE PHOSPHATASE 61 U/L (45-117); BILIRUBIN,TOTAL 0.3 mg/dL (0.2-1.0); TOTAL PROTEIN 7.2 g/dL (6.4-8.2)
--- NOTE | 2021-01-18 18:01 | NUR ---
Provided pt water and crackers for PO challenge.
--- NOTE | 2021-01-18 18:20 | NUR ---
Pt able to take a couple sips of water but reports he can't drink any more as it is making him feel sick. No vomitting or dry heaving since he has been here.
[2021-01-18] MEDS ORDERED: KETOROLAC 60 MG/2 ML ONE (18:35)
[2021-01-18 18:40] VITALS: BP 213/129
--- NOTE | 2021-01-18 18:41 | NUR ---
medicated per eMAR
[2021-01-18] MEDS ORDERED: KETOROLAC 30 MG/1 ML IM ONE (19:00)
--- NOTE | 2021-01-18 19:03 | NUR ---
Pt agrees with and understands discharge plan and instructions. MD aware of pt's BP. Pt states he is getting his meds refilled on Wednesday and his BP is usually high. Provided pt taxi voucher, walked pt to lobby, [facility] called, informed staff in lobby to assist pt to taxi.
== END 2021-01-18 19:05 | disposition home or self-care (01) ==
LOC: ED 17:21
DX: R10.13 Epigastric pain (principal); R11.2 Nausea with vomiting, unspecified; R19.7 Diarrhea, unspecified; R10.12 Left upper quadrant pain; I10 Essential (primary) hypertension; E11.65 Type 2 diabetes mellitus with hyperglycemia; E78.5 Hyperlipidemia, unspecified; K21.9 Gastro-esophageal reflux disease without esophagitis; G89.29 Other chronic pain; Z90.89 Acquired absence of other organs; Z86.73 Personal history of transient ischemic attack (TIA), and cerebral infarction without residual deficits
CPT/HCPCS: 36415; 80053; 83690; 85025; 96372; 99283; J1885; Q0162

== ENCOUNTER 2021-04-01 13:01 | Emergency (ER) | payer MEDICAID ==
[~2021-04-01] VITALS: Ht 185.4 cm; Wt 126.4 kg
--- NOTE | 2021-04-01 13:19 | NUR ---
BIB EMS FROM HOME. PT WITH HX OF SCHIZOPHRENIA. PT HEARING VOICES TELLING HIM TO KILL HIMSELF. VOICES TELLING HIM TO USE AN ELECTRICAL CORD TO STRANGLE HIMSELF. PT CALM AND COOPERPRATIVE. ALL CLOTHES REMOVED AND PLACED IN BELONGINGS BAG X 1 AND SECURED IN LOCKER WELL HIS CANE. PT IS LEGALLY BLIND. PT AMBULATED TO BATHROOM AND PROVIDED URINE SAMPLE. RTD TO ROOM W/O INCIDENT. ROOM SECURE AND SITTER AT DOORWAY WITH PT IN VIEW.
[2021-04-01 13:57] LABS: BASOPHILS % (AUTO) 1 % (0-1); EOSINOPHILS % (AUTO) 3 % (1-7); LYMPHOCYTES % (AUTO) 23 % (22-44); MEAN CORPUSCULAR HEMOGLOBIN 31.2 pg (27.5-34.5); MEAN CORPUSCULAR HGB CONC 33.6 g/dL (33.2-36.2); MEAN PLATELET VOLUME 11.4 fL (7.4-10.4); MONOCYTES % (AUTO) 6 % (2-9); NEUTROPHILS % (AUTO) 67 % (42-75); PLATELET COUNT 167 x10^3/uL (130-400); RED BLOOD COUNT 5.03 x10^6/uL (4.38-5.82); RED CELL DISTRIBUTION WIDTH 14.7 % (9.4-14.8)
[2021-04-01 13:58] LABS: MD NO
[2021-04-01 14:08] LABS: ALBUMIN 3.6 g/dL (3.4-5.0); ANION GAP 5 mmol/L (5-15); CALCIUM 8.4 mg/dL (8.5-10.1); CHLORIDE 109 mmol/L (98-107)
[2021-04-01 14:10] LABS: ALANINE AMINOTRANSFERASE 21 U/L (12-78); ALKALINE PHOSPHATASE 56 U/L (45-117); BILIRUBIN,TOTAL 0.3 mg/dL (0.2-1.0); CREATININE 1.81 mg/dL (0.7-1.3); TOTAL PROTEIN 7.2 g/dL (6.4-8.2)
--- NOTE | 2021-04-01 14:11 | NUR ---
SI 1800 ADA DIET ORDERED
[2021-04-01 14:21] LABS: SALICYLATE LEVEL < 1.7 mg/dL (2.8-20.0)
--- NOTE | 2021-04-01 14:44 | NUR ---
MEAL TRAY PROVIDED AND SET UP FOR PT. RAPID COVID SWAB SAMPLE COLLECTED AND TAKEN TO LAB.
[2021-04-01 14:45] VITALS: BP 187/103
[2021-04-01 14:47] LABS: AMPHETAMINE SCREEN, URINE Negative (Negative); BARBITURATE SCREEN, URINE Negative (Negative); BENZODIAZEPINE SCREEN, URINE Negative (Negative); CANNABINOID SCREEN, URINE Positive (Negative); COCAINE SCREEN, URINE Negative (Negative); METHADONE SCREEN, URINE Negative (Negative); OPIATE SCREEN, URINE Negative (Negative)
--- NOTE | 2021-04-01 15:24 | NUR ---
ASSUMING CARE FROM LAKISHA SAMAYOA AFTER BEDSIDE REPORT. PT TO BE ADMITTED TO U. RESTING IN BED, GILLIAN GUTIERREZ.
--- NOTE | 2021-04-01 15:52 | NUR ---
PT ASLEEP WITH EVEN AND UNLABORED RESPIRATIONS.
[2021-04-02] MEDS ORDERED: SERTRALINE 100MG TABLET PO SCH (09:00)
[2021-04-02] MEDS ORDERED: PALIPERIDONE 3 MG TAB.ER.24 PO SCH (09:00)
== END 2021-04-01 17:32 | disposition home or self-care (01) ==
LOC: ED 14:13
DX: F20.9 Schizophrenia, unspecified (principal); Z20.822 Contact with and (suspected) exposure to COVID-19; F17.210 Nicotine dependence, cigarettes, uncomplicated; E11.65 Type 2 diabetes mellitus with hyperglycemia; K21.9 Gastro-esophageal reflux disease without esophagitis; E78.5 Hyperlipidemia, unspecified; Z86.73 Personal history of transient ischemic attack (TIA), and cerebral infarction without residual deficits; Z90.89 Acquired absence of other organs
CPT/HCPCS: 36415; 80053; 80299; 80307; 80320; 80329; 85025; 87426; 99284; 99406; G0480